=== PATIENT | male | born 1935 | race Caucasian/White ===

== ENCOUNTER 2020-01-03 12:52 | Outpatient (CLI) | payer MEDICARE, SELFPAY ==
--- NOTE | ~2020-01-03 | US_ITS ---
US renal BI 01/03/2020 13:40 Procedure: Realtime transabdominal ultrasound of the kidneys and bladder. Indication: Abnormal renal function Comparison: Ultrasound dated 10/31/2018 Findings: Renal echotexture is normal bilaterally without hydronephrosis, contour deforming mass or r enal calculus. The right kidney measures 11.5 cm and left kidney measures 11.5 cm. Bladder within no rmal limits. Prostate gland is enlarged. Impression: 1: Unremarkable renal ultrasound. No stones, masses or hydronephrosis. Reviewed, dictated and finalized at location A. Impression: 1: Unremarkable renal ultrasound. No stones, masses or hydronephrosis.
--- NOTE | ~2020-01-03 | XR_ITS ---
EXAMINATION: XR foot RT standing 2V EXAM DATE: 01/03/2020 13:45 INDICATION: Osteoarthritis. TECHNIQUE: Right foot 2 view standing frontal and lateral projections. There is no prior study for comparison. Correlation was made with contralateral foot same date. FINDINGS: Arterial sclerotic disease. No periosteal reaction or band of sclerosis to suggest subacut e stress fracture. There are no acute fractures identified. Mild to moderate right 1st MTP osteoarth ritis. Otherwise mild polyarticular osteoarthritis. There is pes planus. There are no bony erosions i dentified. IMPRESSION: 1. 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 2. Pes planus. Reviewed, dictated and finalized at location A.
--- NOTE | ~2020-01-03 | XR_ITS ---
EXAMINATION: XR foot LT standing 2V EXAM DATE: 01/03/2020 13:45 INDICATION: No known recent injury provided at this time. Pain of the feet. Osteoarthritis. TECHNIQUE: Left foot standing frontal and lateral projections. There is no prior study for comparis on. FINDINGS: There is left pes planus. There are no bony erosions identified. There is mild to moderate polyarticular midfoot and 1st metatarsophalangeal joint primary osteoarthritis. Scattered arterial s clerosis. No periosteal reaction or band of sclerosis to suggest subacute stress fracture. There are no bony erosions identified. IMPRESSION: 1. Mild to moderate polyarticular left wrist osteoarthritis. 2. Pes planus. Reviewed, dictated and finalized at location A.
--- NOTE | ~2020-01-03 | XR_ITS ---
EXAMINATION: XR hand BI arthritis min 3V EXAM DATE: 01/03/2020 13:45 INDICATION: Osteoarthritis. TECHNIQUE: Right hand frontal, lateral and oblique projections obtained and reviewed. Left hand fron sheela, lateral and oblique projections obtained and reviewed. Catchers projection of both hands. There is no prior study for comparison. FINDINGS: Right hand: There is polyarticular primary osteoarthritis as follows: Moderate 2nd and 3rd MCP joint and 5th distal interphalangeal joint, otherwise mild polyarticular involvement. There are no acute fr actures identified. There are no bony erosions identified. No radiopaque foreign bodies identified. Left hand: There is polyarticular primary osteoarthritis as follows: Moderate 1st MCP, otherwise mild polyarticular involvement. There are arterial calcifications, arteriosclerosis. There are no bony er osions identified. No radiopaque foreign bodies identified. IMPRESSION: Polyarticular osteoarthritis, moderate at the 2nd MCP joints bilaterally and right 3rd MC P joint. Reviewed, dictated and finalized at location A. IMPRESSION: Polyarticular osteoarthritis, moderate at the 2nd MCP joints bilate rally and right 3rd MCP joint.
== END 2020-01-03 12:53 | disposition home or self-care (01) ==
PROVIDERS: PCP Internal Medicine; Referring Provider Internal Medicine; Visit Provider Internal Medicine Nephrology
DX: M19.90 Unspecified osteoarthritis, unspecified site (principal); R94.4 Abnormal results of kidney function studies; M19.072 Primary osteoarthritis, left ankle and foot; M19.071 Primary osteoarthritis, right ankle and foot
CPT/HCPCS: 73130; 73620; 76775

== ENCOUNTER 2020-05-16 14:20 | Observation (INO) | payer MEDICARE, SELFPAY ==
[2020-05-16] VITALS (22 sets, daily range): BP systolic 131–176; BP diastolic 54–76; PULSE 92–168; RESP 15–23; TEMP 36.8–36.9; O2SAT 90–100; BMI 30.7
--- NOTE | ~2020-05-16 | XR_ITS ---
EXAMINATION: XR chest 2V DATE: 05/16/2020 17:05 INDICATION: Chest pain TECHNIQUE: AP and lateral views of the chest are obtained. COMPARISON: 11/05/2018 FINDINGS: Cardiomegaly is noted. There is a mild diffuse interstitial pattern. More focal airspace op acities are present in the mid and lower lung zones. There are trace pleural effusions. No pneumothor ax is identified. There is moderate thoracic spondylosis. IMPRESSION: 1. Cardiomegaly with mild pulmonary edema. 2. Small pleural effusions. Reviewed, dictated and finalized at location A.
--- NOTE | 2020-05-16 14:21 | ECG_ITS ---
Measurements Intervals [place] Rate: 98 P: 82 MN: 232 QRS: -48 QRSD: 100 T: 56 QT: 350 QTc: 447 Interpretive Statements SINUS RHYTHM WITH FIRST DEGREE AV BLOCK LEFT ANTERIOR FASCICULAR BLOCK BASELINE WANDER- V5 ABNORMAL ECG Electronically Signed On 05-16-2020 14:51:47 CDT by Rich Contreras D.O.
[2020-05-16 14:58] LABS: Basophils Absolute Auto 0.1 K/mm3 (0.0-0.1); Basophils Percent Auto 0.4 % (0.2-1.2); Hematocrit 37.9 % (42.0-52.0); Hemoglobin 12.4 g/dL (14.0-18.0); Immature Granulocyte Absolute 0.05 K/mm3 (0.00-0.031); Immature Granulocyte Percent A 0.4 % (0-0.5); Lymphocytes Absolute Auto 0.82 K/mm3 (0.9-3.2); Lymphocytes Percent Auto 6.1 % (18.3-44.2); Mean Corpuscular HGB Conc 32.7 g/dl (32-36); Mean Corpuscular Hemoglobin 33.1 pg (26-34); Mean Corpuscular Volume 101.1 fl (80-100); Mean Platelet Volume 10.2 fl (7.4-10.4); Monocytes Percent Auto 7.2 % (2.6-8.5); Neutrophils Absolute Auto 11.5 K/mm3 (1.3-6.7); Neutrophils Percent Auto 85.9 % (45.5-73.1); Platelet Count Result 243 k/mm3 (150-375); Red Blood Count 3.75 M/mm3 (4.6-6.20); Red Cell Distribution Width 12.1 % (11.5-14.5); White Blood Count 13.4 K/mm3 (4.5-10.0)
[2020-05-16 15:04] LABS: Prothrombin Time 13.2 Seconds (11.1-14.7)
[2020-05-16 15:05] LABS: Partial Thromboplastin Time 24.8 SECONDS (22.3-36.8)
[2020-05-16 15:09] LABS: Anion Gap 14 mmol/L (8-16); Blood Urea Nitrogen 44 mg/dL (9-20); Calcium 9.2 mg/dL (8.4-10.2); Carbon Dioxide 23 mmol/L (22-30); Chloride 95 mmol/L (98-107); Estimated CRCL calculation 40 ml/min; Estimated Glomerular Filt Rate 41; Glucose 585 mg/dL (75-110); Potassium 5.4 mmol/L (3.4-5.0); Sodium 132 mmol/L (137-145)
--- NOTE | 2020-05-16 15:29 | ED.CHESTPAIN ---
HPI - Chest Pain General Chief Complaint: Chest Pain Stated Complaint: CP Time Seen by Provider: 05/16/20 15:29 Source: patient Mode of arrival: wheelchair Limitations: no limitations History of Present Illness HPI narrative: Patient is an 84-year-old male with a history of hypertension, hyperlipidemia, type 2 diabetes who presents for evaluation of chest pain, nausea and vomiting as well as elevated glucose levels. Patient states he noticed chest pain this morning prior to doing water aerobics at his gym. States that the pain was dull, aching in nature over the left upper chest, no radiation to the jaw, back or shoulder. Patient has had associated nausea and vomiting today. He denies any abdominal pain. Pain currently is very mild to minimal in nature. No associated diaphoresis or shortness of breath. No ripping or tearing sensation to the flank. Patient states glucose readings have been in the 500s despite his insulin pump being attached. He reports polyuria without dysuria. He denies fever, chills, cough. Related Data Home Medications Medication Instructions Recorded Confirmed aspirin 81 mg tablet,delayed 81 mg PO DAILY 06/20/19 05/10/20 release atorvastatin 20 mg tablet 40 mg PO DAILY tablet 10/04/19 05/10/20 metoprolol tartrate 25 mg tablet 25 mg PO DAILY tablet 12/29/19 05/10/20 citalopram 20 mg tablet 40 mg PO DAILY tablet 04/29/20 05/10/20 furosemide 40 mg tablet 40 mg PO WEEKLY tablet 04/29/20 05/10/20 losartan 25 mg tablet 25 mg PO DAILY 04/29/20 05/10/20 Allergies Allergy/AdvReac Type Severity Reaction Status Date / Time hydrocodone Allergy Unknown Unknown Verified 05/16/20 14:26 morphine Allergy Unknown Unknown Verified 05/16/20 14:26 Review of Systems Review of Systems: Narrative: CONSTITUTIONAL: Denies fever, chills, or sweats. EYES: Denies visual changes ENT: Denies rhinorrhea, congestion, sore throat, or otalgia. CARDIOVASCULAR: Reports chest pain without palpitations or edema RESPIRATORY: Denies cough or dyspnea. GASTROINTESTINAL: Denies abdominal pain, reports nausea and vomiting, denies diarrhea GENITOURINARY: Denies dysuria or hematuria. SKIN: Denies rash or itching. MUSCULOSKELETAL: Denies back pain, joint pain, or myalgia. NEUROLOGIC: Denies headache, numbness, or weakness. [facility] Past Medical History Medical History Albuminuria Arthritis, lumbar spine ASHD (arteriosclerotic heart disease) Bilateral hand pain BMI 34.0-34.9,adult Chronic obstructive pulmonary disease CKD stage 3 due to type 2 diabetes mellitus Counseling on health promotion and disease prevention Depression Diabetes mellitus Diastolic heart failure, NYHA class 1 Encounter for medication management Encounter for screening for other viral diseases Essential (primary) hypertension Health education History of CVA (cerebrovascular accident) Hypothyroidism Hypothyroidism (acquired) Inflammatory arthritis (~08/2018) Insulin dependent diabetes mellitus Insulin pump titration Kyphosis Mixed hyperlipidemia Osteoarthritis of right hip Other specified counseling Primary osteoarthritis of both hands Primary osteoarthritis of both knees Surgical History Surgical History History of total knee arthroplasty 2017 right Family History Family History Mother Family history of diabetes mellitus in first degree relative Family history of lung disease Family history of heart disease in male family member before age 55 Family history of lung cancer, Onset Age: 80 Patient's mother is Social History Social History Smoking status: Never smoker Second hand tobacco smoke exposure: No Alcohol intake: never Exam Narrative: Exam Narrative: GENERAL: Awake, alert, conversant HEAD: Normocep
[2020-05-16 15:32] LABS: Troponin I 0.049 ng/mL (0.000-0.034)
[2020-05-16 15:54] LABS: Base Excess ABG -3.6 mEq/l (+/-2.0); Carboxyhemoglobin 1.2 % THb (0-2.0); Device ROOM AIR; Fractional Inspired Oxygen 21 %; HCO3 ABG 22.4 mEq/l (22.0-26.0); Methemoglobin ABG 0.3 %THb (0-1.5); Oxygen Content ABG 15.7 %vol (16.0-22.0); Oxygen Saturation ABG 90.7 % (95.0-100.0); Oxyhemoglobin 87.9 % THb (90.0-100.0); PCO2 ABG 44.2 mmHg (35.0-45.0); PO2 ABG 63.8 mmHg (80.0-100.0); PO2 FiO2 Ratio Arterial Blood 3.04 %; Reduced Hemoglobin 10.6 %THb (0-5.0); Site Drawn LEFT BRACHIAL; Total Hemoglobin 12.7 g/dL (12.0-18.0); pH ABG 7.323 (7.350-7.450)
[2020-05-16 15:59] LABS: Add Urine Microscopic? YES; Appearance Urine Clear (Clear); Bilirubin Urine Negative (Negative); Blood Urine Negative (Negative); Color Urine Straw (Yellow); Glucose Urine UA 3+ mg/dL (Negative); Ketones Urine 1+ mg/dL (Negative); Leukocyte Esterase Ur Negative LEU/UL (Negative); Nitrate Urine Negative (Negative); Protein Urine 2+ mg/dL (Negative); RBC Urine 0-2 /hpf (0-2); Urobilinogen Urine Negative mg/dL (<2.0); WBC Urine 0-3 /hpf
[2020-05-16] MEDS: ONDANSETRON INJ 4 MG/2 ML VIAL IV PUSH (15:59)
[2020-05-16 16:00] LABS: Glucose Point of Care > 500 (65-105)
[2020-05-16] MEDS: SODIUM BICARBONATE 8.4% 50 MEQ/50 ML VIAL IV PUSH (16:00)
[2020-05-16] MEDS: CALCIUM GLUCONATE 1,000 MG/10 ML VIAL 1000 MG IV PUSH (16:00)
[2020-05-16] MEDS: INSULIN HUMAN REGULAR (*BKC) 100 UNITS/ML 10 UNITS IV PUSH (16:00)
[2020-05-16] MEDS: ASPIRIN 81 MG CHEWABLE TABLET 324 MG PO (16:00)
[2020-05-16] MEDS: METOCLOPRAMIDE HCL INJ 10 MG/2 ML VIAL IV PUSH (16:38)
[2020-05-16 16:53] LABS: Beta-Hydroxybutyrate/Acetoacetate 3.25 mmol/L (0.02-0.27)
--- NOTE | 2020-05-16 17:01 | ECG_ITS ---
Measurements Intervals [place] Rate: 97 P: 92 TX: 237 QRS: -42 QRSD: 102 T: 54 QT: 352 QTc: 448 Interpretive Statements SINUS RHYTHM WITH FIRST DEGREE AV BLOCK VENTRICULAR PREMATURE COMPLEX LEFT AXIS DEVIATION BORDERLINE ST ABNORMALITY- ANTEROLATERAL LEADS ABNORMAL ECG Electronically Signed On 05-17-2020 10:35:53 CDT by Rich Contreras D.O.
[2020-05-16 17:14] LABS: Glucose Point of Care 447 (65-105)
[2020-05-16 18:04] LABS: NT Pro B Type Natriuretic Pept 908 PG/ML (5-100)
[2020-05-16] MEDS: SODIUM CHLORIDE 0.9% IV 1,000 ML 999 ML IV CONT (18:11)
--- NOTE | 2020-05-16 18:15 | WPDCN ---
Assessment and Plan Assessment and plan (1) Atypical chest pain: Code(s): R07.89 - Other chest pain Status: Acute Assessment and Plan: Pt has had persistent CP since yesterday but no acute ischemic EKG changes and troponins are minimally high; this appears to be noncardiac CP. Esophageal vs nonspecific. HR is a little fast, 100 BPM, will follow. (2) Elevated troponin: Code(s): R77.8 - Other specified abnormalities of plasma proteins Status: Acute Assessment and Plan: MIld troponin elevation, flat. (3) Acute on chronic diastolic CHF (congestive heart failure): Code(s): I50.33 - Acute on chronic diastolic (congestive) heart failure Status: Acute Assessment and Plan: Pt appears to have some CHF by CXR and he has a very modest elevation of ProBNP. However he does not really look volume overloaded; more dry than wet. He may have some CHF based on metabolic derangements and elevated HR. This should improve as everything else improves. (4) ASHD (arteriosclerotic heart disease): Code(s): I25.10 - Atherosclerotic heart disease of [place] coronary artery without angina pectoris Status: Acute Assessment and Plan: H/O old [place] (5) Uncontrolled diabetes mellitus: Code(s): E11.65 - Type 2 diabetes mellitus with hyperglycemia Status: Acute Assessment and Plan: BS > 500. It appears his iinsulin pump was not functioning appropriately. A lot of metabolic derangements, but I think this will improve once his BS and borderline-DKA improve. (6) FERMIN (acute kidney injury): Code(s): N17.9 - Acute kidney failure, unspecified Status: Acute Assessment and Plan: Noted, given IV fluids. BMP in a.m. (7) Acute hyperkalemia: Code(s): E87.5 - Hyperkalemia Status: Acute Assessment and Plan: Has had some mild hyperkalemia as an OPT, now worse. Treated. FU K+ HPI Data of Consult Date/Time: 05/16/20 18:15 Requesting Physician: April Sarkar MD Primary Care Provider: Sreekanth Jackson MD Consult Narrative Narrative: Date of service: 03/18/2020 Kurtis Allred is a 84 year old male, whom I follow for CAD, was admitted through the emergency room. I was asked to see him at the request the hospitalist for my advice and opinion regarding his chest pain, nausea and vomiting, in consultation. He also has a history of hypertension, diabetes and hyperlipidemia. The patient uses an insulin pump called [employer]. He noted high BS for `1.5 days, up in the 400-500's. He wasn't feeling well. HE started having some SSCP/pressure yesterday, a dull, aching discomfort w/o radiation, which persisted through today. He did water aerobics this morning and started feeling worse w/ N&V. The SSCP continued and he came to the ER. HIs EKG showed no acute changes. His blood gas showed a pH is 7.32, pCO2 44 and PO2 of 64. He was found to have a BUN of 44, creatinine 1.6, glucose of 585, potassium 5.4, proBNP of non 108, and a troponin of 0.06. Beta-hydroxybutyrate was elevated at 3.3. He has been given 2 liters? of IVF, sodium bicarb, IV insulin. He was admitted to the ICU. He still has some SSCP. Mr. Busby had a NSTEMI in 1998 treated medically and started w/ CHF in 2019. He has had some atypical CP in the past. A Daysi in 2016 shoed no ischemia. Echo in 11/2018 showed EF 60%, mod LVH, diast dysfxn, no valve problems. When I last saw the pt in February 2020 he was having no angina. Has chronic ARANDA walking to the mailbox. He wasn't taking his furosemide regularly but I rec he take it once weekly. HIs K+ was elevated so I changed his lisinopril to losartan and instructed him on
--- NOTE | 2020-05-16 18:47 | ADMGEN ---
This patient, Kurtis Allred, was admitted to Intensive Care Unit-8 at 1825. Patient/family oriented to hospital policies and general routines including ID bracelet, bed and alarms, visiting hours, pain management, procedures, bathroom and other care routines, personal items, smoking policy, room service/diet, and visiting hours. Valuables list has been completed. Information on how to activate the Rapid Response Team has been discussed. Patient/Family are encouraged to report perceived risks to care and to ask questions if they do not understand what they are told or what they should do.
--- NOTE | 2020-05-16 19:28 | PM.IMHP ---
H&P: HPI History of Present Illness Date/Time: 05/16/20 19:28 Chief complaint: HYPERGLYCEMIA,CHEST PAIN,HYPERKALEMIA Narrative: Kurtis Allred is a 84 year old male Who came to the emergency room [facility] for complaints of chest pain. The patient stated he felt fine when he went to do his water aerobics this morning. He stated that he has a insulin pump and gives him a continue with insulin dosage. And then he can bolus himself as well. The patient disconnected his pump while hewas in the water but then reconnected soon after. the patient stated that he had to stop his aerobics because he got sick to stomach and vomited 3 times. Patient stated that his blood sugars are typically under control. He does have diabetes type 2 and he went to change his insulin pump again and it was bent 2 times and figure that he was not getting his insulin that he should. He had the nausea and vomiting and chest pain. Patient gave himself a shot of insulin at home with his blood sugars were in the 500s. the patient stated that it is mid sternal and is not reproducible. Patient stated he is not short of breath but his pulse ox was dropping down to 83%. Oxygen was placed at 2 L per nasal cannula. Patient's sodium was found to be 132 potassium 5.4. Creatinine 1.6. His last known creatinine was 1.3 but earlier this year did get up to 1.7. Patient has chronic renal failure stage 3. Patient's blood glucose was 585 when he came to the emergency room. His troponin 0.049 and 0.060. Anion gap was reported as 14 but was reported as normal. The pharmacy clinical specialist was notified and agreed to be a consult for the patient in ICU. Patient's troponinare typically mildly elevated and is at his baseline. He has not had any fever chills. Chest x-ray was read as cardiomegaly with pulmonary edema. Small effusions. Cardiology has been consulted and has already seen the patient. Patient was given an aspirin in the emergency room Zofran IV fluids calcium gluconate sodium bicarb and insulin for an elevated potassium. He is also given Reglan. Regardless of the 3 L of normal saline that the patient received his blood sugars do not come down much. Patient is admitted to the intensive care unit for elevated blood sugars and chest pain with elevated troponins. the patient stated that he tried anti nausea medicine and Tums at home without any relief. Date of service is 05/16/2020 Review of Systems Review of Systems: All systems reviewed & are unremarkable except as noted in HPI and below Constitutional: Constitutional: Reports as per HPI and Reports no additional constitutional complaints Eyes: Eyes: Reports as per HPI and Reports no additional eye complaints ENT: Reports system reviewed and no additional complaints, except as documented and Reports Normal hearing present Cardiovascular: Cardiovascular: Reports no additional cardiovascular complaints Respiratory: Respiratory: Reports no additional respiratory complaints and Reports no additional respiratory complaints Gastrointestinal: Gastrointestinal: Reports as per HPI and Reports no additional gastrointestinal complaints Musculoskeletal: Musculoskeletal: Reports no additional musculoskeletal complaints Integumentary/Breasts: Skin/Breast: Reports system reviewed and no additional complaints, except as docu and Reports as per HPI Neurologic: Reports system reviewed and no additional complaints, except as documented, Reports as per HPI and Reports Normal hearing present Psychiatric: Psychiatric: Reports no additional psychiatric complaints and Reports as per HPI Endocrine: Endocrine: Reports no additional endocrine complaints Hematologic/Lymphatic: Hematologic/Lymphatic: Reports no additional hematologic/lymphatic complaints Allergic/Immunologic: Allergic/Immunologic: Reports no additional allergic/immunologic complaints [facility] Past Medical History Medical History Acute on
[2020-05-16 20:02] LABS: Anion Gap 16 mmol/L (8-16); Blood Urea Nitrogen 43 mg/dL (9-20); Calcium 9.3 mg/dL (8.4-10.2); Carbon Dioxide 23 mmol/L (22-30); Chloride 96 mmol/L (98-107); Estimated CRCL calculation 40 ml/min; Estimated Glomerular Filt Rate 45; Glucose 473 mg/dL (75-110); Magnesium 2.1 mg/dL (1.6-2.3); Potassium 5.1 mmol/L (3.4-5.0); Sodium 135 mmol/L (137-145)
[2020-05-16] MEDS: INSULIN HUMAN REGULAR (*BKC) 100 UNITS in SODIUM CHLORIDE 0.9% IV 99 ML 7.7 UNITS IV CONT (20:36)
[2020-05-16] MEDS: SODIUM CHLORIDE 0.9% IV 1,000 ML 150 ML IV CONT (20:37)
[2020-05-16] MEDS: HEPARIN SODIUM 5,000 UNITS/ML VIAL 5000 UNITS SUB-Q (20:44)
[2020-05-16 20:52] LABS: Glucose Point of Care 462 (65-105)
[2020-05-16 21:39] LABS: Glucose Point of Care 452 (65-105)
[2020-05-16 23:00] LABS: Anion Gap 15 mmol/L (8-16); Blood Urea Nitrogen 44 mg/dL (9-20); Calcium 8.8 mg/dL (8.4-10.2); Carbon Dioxide 21 mmol/L (22-30); Chloride 100 mmol/L (98-107); Estimated CRCL calculation 36 ml/min; Estimated Glomerular Filt Rate 39; Glucose 458 mg/dL (75-110); Potassium 4.9 mmol/L (3.4-5.0); Sodium 136 mmol/L (137-145)
[2020-05-16 23:19] LABS: Troponin I 0.275 ng/mL (0.000-0.034)
[2020-05-16 23:33] LABS: Glucose Point of Care 389 (65-105)
[2020-05-17] VITALS (15 sets, daily range): BP systolic 124–150; BP diastolic 55–64; PULSE 58–93; RESP 15–24; TEMP 36.4–36.9; O2SAT 92–99; BMI 30.4
--- NOTE | 2020-05-17 | ECHO_ITS ---
Patient Info Name: Kurtis Allred Age: 84 years : 1935 Gender: Male Ht: 71 in Wt: 219 lbs BSA: 2.26 m2 HR: 87 bpm BP: 133 / 64 mmHg Heart Rhythm: Sinus Rhythm Technical Quality: Good Exam Date: 05/17/2020 8:17 AM Exam Location: [facility] Patient Status: Inpatient Admit Date: 05/16/2020 Staff Ordering Physician: Maddie Stoddard NP Laboratory Technical Specialist: Oj Matthew, RHONDA, RT Attending Provider: April Sarkar MD Referring Physician: Arlyn THAO; Exam Type: CA echo doppler color flow Study Info Indications I50.9 - Heart failure, unspecified Complete two-dimensional, color flow and Doppler transthoracic echocardiogram is performed. Summary 1. Complete two-dimensional, color flow and Doppler transthoracic echocardiogram is performed. 2. Normal LV size, mild LVH, normal LV systolic function, EF 65-70%; normal diastolic function. LV global launch normal strain-17%. Mild left atrial enlargement. Mild mitral annular calcification, mild MR. Mildly sclerotic aortic valve, no stenosis; trivial aortic regurgitation. [id number] tricuspid regurgitation, moderate pulmonary hypertension, estimated RVSP 57 mmHg. Left Ventricle Left ventricular chamber dimension is normal. Left ventricular systolic function is normal, estimated at 60-65%. There is mildly increased left ventricular wall thickness. The left ventricular diastolic function is normal. Right Ventricle Right ventricular chamber dimension is normal. Right ventricular systolic function is normal. Left Atria Left atrial chamber dimension is mildly enlarged. Right Atria Right atrial chamber dimension is normal. Aortic Valve There is mild aortic valve sclerosis. There is no aortic valve stenosis. There is trace aortic valve regurgitation. Pulmonic Valve The pulmonic valve is normal. There is trace pulmonic regurgitation. Mitral Valve The mitral valve has normal leaflets. There is mild mitral valve regurgitation. There is mild mitral valve calcification. Tricuspid Valve The tricuspid valve leaflets are normal. There is mild to moderate tricuspid valve regurgitation. Moderate pulmonary hypertension, estimated pulmonary arterial systolic pressure is 57 mmHg. Pericardium/Pleural The pericardium appears epicardial fat pad. Inferior Vena Cava Dilated inferior vena cava with >50% collapse upon inspiration consistent with elevated right atrial pressure, 10 mmHg. Aorta The aortic root size at the sinus of Valsalva is not well visualized. Left Ventricular Outflow Tract Name Value Normal LVOT 2D LVOT Diameter 2.1 cm LVOT Doppler LVOT Peak Gradient 5 mmHg LVOT Mean Gradient 3 mmHg LVOT VTI 24 cm LVOT VTI/AV VTI Ratio 0.8 LVOT Stroke Volume 85 ml LVOT CO 7.0 l/min LVOT CI 3.1 l/min/m2 Mitral Valve Name
[2020-05-17 01:07] LABS: Glucose Point of Care 344 (65-105)
[2020-05-17 02:23] LABS: Glucose Point of Care 287 (65-105)
[2020-05-17] MEDS: INSULIN HUMAN REGULAR (*BKC) 100 UNITS in SODIUM CHLORIDE 0.9% IV 99 ML 15.9 UNITS IV CONT (03:26)
[2020-05-17] MEDS: KCL 20 MEQ/D5/0.45% SOD CHL 1,000 ML 150 ML IV CONT (03:27)
[2020-05-17 03:37] LABS: Glucose Point of Care 220 (65-105)
[2020-05-17 05:00] LABS: Basophils Percent Auto 0.2 % (0.2-1.2); Hematocrit 32.9 % (42.0-52.0); Immature Granulocyte Absolute 0.03 K/mm3 (0.00-0.031); Immature Granulocyte Percent A 0.3 % (0-0.5); Lymphocytes Absolute Auto 0.96 K/mm3 (0.9-3.2); Lymphocytes Percent Auto 9.7 % (18.3-44.2); Mean Corpuscular HGB Conc 33.4 g/dl (32-36); Mean Corpuscular Hemoglobin 32.9 pg (26-34); Mean Corpuscular Volume 98.5 fl (80-100); Mean Platelet Volume 9.8 fl (7.4-10.4); Monocytes Absolute Auto 1.3 K/mm3 (0.1-0.6); Monocytes Percent Auto 13.1 % (2.6-8.5); Neutrophils Absolute Auto 7.6 K/mm3 (1.3-6.7); Neutrophils Percent Auto 76.7 % (45.5-73.1); Platelet Count Result 228 k/mm3 (150-375); Red Blood Count 3.34 M/mm3 (4.6-6.20); Red Cell Distribution Width 12.2 % (11.5-14.5); White Blood Count 9.9 K/mm3 (4.5-10.0)
[2020-05-17 05:14] LABS: Anion Gap 4 mmol/L (8-16); Blood Urea Nitrogen 44 mg/dL (9-20); Calcium 8.8 mg/dL (8.4-10.2); Carbon Dioxide 32 mmol/L (22-30); Chloride 102 mmol/L (98-107); Estimated CRCL calculation 38 ml/min; Estimated Glomerular Filt Rate 41; Glucose 184 mg/dL (75-110); Lipase 27 U/L (23-300); Potassium 4.1 mmol/L (3.4-5.0); Sodium 138 mmol/L (137-145)
[2020-05-17 05:45] LABS: Glucose Point of Care 160 (65-105)
[2020-05-17 06:46] LABS: Glucose Point of Care 103 (65-105)
[2020-05-17 07:36] LABS: Glucose Point of Care 98 (65-105)
[2020-05-17 07:57] LABS: Anion Gap 3 mmol/L (8-16); Blood Urea Nitrogen 42 mg/dL (9-20); Calcium 8.9 mg/dL (8.4-10.2); Carbon Dioxide 33 mmol/L (22-30); Chloride 103 mmol/L (98-107); Estimated CRCL calculation 38 ml/min; Estimated Glomerular Filt Rate 41; Glucose 94 mg/dL (75-110); Potassium 4.1 mmol/L (3.4-5.0); Sodium 139 mmol/L (137-145)
[2020-05-17 08:33] LABS: Glucose Point of Care 79 (65-105)
[2020-05-17 08:56] LABS: Free T4 Free Thyroxine Reflex 0.72 ng/dL (0.78-2.19)
[2020-05-17] MEDS: amLODIPine BESYLATE 5 MG TABLET BY MOUTH (09:11)
[2020-05-17] MEDS: ASPIRIN 81 MG ENTERIC TABLET PO (09:11)
[2020-05-17] MEDS: INSULIN GLARGINE (*BKC) 100 UNITS/ML 15 UNITS SUB-Q (09:13)
[2020-05-17] MEDS: HEPARIN SODIUM 5,000 UNITS/ML VIAL 5000 UNITS SUB-Q ×2 (09:13→22:40)
[2020-05-17] MEDS: LOSARTAN POTASSIUM 25 MG TABLET PO (09:13)
[2020-05-17] MEDS: METOPROLOL TARTRATE 25 MG TABLET PO (09:13)
[2020-05-17] MEDS: CITALOPRAM HYDROBROMIDE 20 MG TABLET 40 MG PO (09:13)
[2020-05-17] MEDS: ATORVASTATIN 40 MG TABLET PO (09:13)
--- NOTE | 2020-05-17 10:39 | WPDCNINT ---
Assessment and Plan Assessment and plan (1) Uncontrolled diabetes mellitus: Code(s): E11.65 - Type 2 diabetes mellitus with hyperglycemia Status: Acute Assessment and Plan: Patient's blood sugars were over 500. His last A1c was noted to be 7.1 last month but is now 8.0 today. patient was started on insulin infusion on admission. Blood glucoses improved and I will transition patient to Lantus, sliding scale, and scheduled with meal insulin will discontinue dextrose IV fluids 1 hour after Lantus (2) Chest pain: Code(s): R07.9 - Chest pain, unspecified Status: Acute Assessment and Plan: patient has slightly elevated troponin which appear to be chronically elevated. Patient does have risk factors for coronary disease patient seen by cardiology in the ER on aspirin statin, ARB and beta-dana not on systemic anticoagulation echo done this morning and result pending further management per Cardiology (3) FERMIN (acute kidney injury): Code(s): N17.9 - Acute kidney failure, unspecified Status: Acute Assessment and Plan: FERMIN on CKD creatinine slightly elevated over baseline continue IV fluids check CK he had renal ultrasound done earlier this year and was negative (4) Acute hyperkalemia: Code(s): E87.5 - Hyperkalemia Status: Acute Assessment and Plan: resolved with treatment in ER monitor (5) Hypothyroidism: Qualifiers: Hypothyroidism type: acquired Qualified Code(s): E03.9 - Hypothyroidism, unspecified Code(s): E03.9 - Hypothyroidism, unspecified Status: Acute Assessment and Plan: TSH elevated and T4 low start levothyroxine (6) Mixed hyperlipidemia: Code(s): E78.2 - Mixed hyperlipidemia Status: Acute Assessment and Plan: Continue with atorvastatin. (7) Essential (primary) hypertension: Code(s): I10 - Essential (primary) hypertension Status: Acute Assessment and Plan: Continue losartan and metoprolol. Continue with amlodipine. (8) Chronic obstructive pulmonary disease: Code(s): J44.9 - Chronic obstructive pulmonary disease, unspecified Status: Acute Assessment and Plan: p.r.n. bronchodilators Additional Plan DVT prophylaxis - heparin subcu Nutrition - diabetic diet Code Status - Full Code Atmospheric Physicist Consult Note Consult date: 05/17/20 Time Seen: 08:00 HPI: Kurtis Allred is a 84 year old male who came to the emergency room with complaints of chest pain. patient started having pain in his chest while doing water aerobics yesterday. pain was 6/10 severe, pressure in quality, no radiation, pain was as stated with nausea and he vomited when he got home. No shortness of breath or palpitations. Pain resolved while in the hospital last night and patient currently is pain free. Patient on insulin pump at home and states that insulin pump gives approximately 1 unit per our and he takes close to 9 units on average with meals. In ER, patient was found to be hyperglycemic, elevated creatinine, elevated troponin Chest x-ray was read as cardiomegaly with pulmonary edema. Small effusions. Cardiology was consulted in the ED and recommended conservative management. Patient was given IV fluids, and started on insulin infusion and admitted to ICU for further management . Patient denies any other complaint at this time and feels back to baseline . Patient denies fever, chest pain, shortness of breath, cough, nausea vomiting, abdominal pain, diarrhea, headache or constipation. No sick contact or travel recently. Patient states that he was tested for COVID antibody and was positive in the past. He denies any change in sensation of taste or smell Review of Systems Review of Systems: All systems reviewed & are unremarkable except as noted in HPI and below ( HPI) PMFSH Past Medical History Medical Hi
[2020-05-17 12:10] LABS: Glucose Point of Care 293 (65-105)
[2020-05-17] MEDS: INSULIN ASPART (*BKC) 100 UNITS/ML SUB-Q ×4 (12:17→17:26)
--- NOTE | 2020-05-17 14:27 | PM.PNCARD ---
Progress Note: A&P Assessment and Plan (1) Atypical chest pain: Code(s): R07.89 - Other chest pain Status: Acute Assessment and Plan: Persistent chest discomfort with no acute ischemic EKG changes. Troponin 0.049, 0.060, 0.110, 0.275. Creatinine also elevated 1.6-1.7. Mild elevation and flat. Not acute coronary syndrome. Chest discomfort has completely resolved his blood sugars have come down. (2) Elevated troponin: Code(s): R77.8 - Other specified abnormalities of plasma proteins Status: Acute Assessment and Plan: Mild troponin elevation, flat. (3) Acute on chronic diastolic CHF (congestive heart failure): Code(s): I50.33 - Acute on chronic diastolic (congestive) heart failure Status: Acute Assessment and Plan: Some CHF by CXR and he has a very modest elevation of ProBNP. He does not look volume overloaded; more dry than wet. He may have some CHF based on metabolic derangements and elevated HR. This should improve as everything else improves. (4) ASHD (arteriosclerotic heart disease): Code(s): I25.10 - Atherosclerotic heart disease of [place] coronary artery without angina pectoris Status: Acute Assessment and Plan: H/O old OK (5) Uncontrolled diabetes mellitus: Code(s): E11.65 - Type 2 diabetes mellitus with hyperglycemia Status: Acute Assessment and Plan: BS > 500. It appears his insulin pump was not functioning appropriately. A lot of metabolic derangements, but this will improve once his BS and borderline-DKA improve. (6) FERMIN (acute kidney injury): Code(s): N17.9 - Acute kidney failure, unspecified Status: Acute Assessment and Plan: Noted, given IV fluids. BMP in a.m. (7) Acute hyperkalemia: Code(s): E87.5 - Hyperkalemia Status: Acute Assessment and Plan: Has had some mild hyperkalemia as an OPT, now worse. Treated. potassium 4.1 05/17/2020. Continue to follow Additional Plan Will follow-up p.r.n. this weekend. Please do not hesitate to call if we can be of assistance. Plan discussed with 1420 05/17/2020 Subjective Date/time seen: 05/17/20 14:27 Interval history: Follow-up for: Chest pain, elevated troponin, acute on chronic HFpEF, arterial sclerotic heart disease, uncontrolled diabetes, acute kidney injury, hyperkalemia. Date of service: 05/17/2020 Subjective: Feeling much better today. Chest discomfort has completely resolved. No further nausea or vomiting. Denied shortness of breath at rest or lightheadedness. Wondering if he has desaturations at home as have been demonstrated here in the hospital. On room air during the time of our interview. Review of Systems Constitutional: Constitutional: Denies body ache(s) and Denies chills Eyes: Eyes: Denies blind spots and Denies blurry vision ENT: Denies dizziness Cardiovascular: Cardiovascular: Reports chest pain ( Resolved), Denies diaphoresis, Denies rapid heart rate, Denies edema, Denies lightheadedness, Denies palpitations and Reports dyspnea on exertion Respiratory: Respiratory: Reports dyspnea on exertion Gastrointestinal: Gastrointestinal: Denies abdominal pain, Denies hematochezia, Denies diarrhea, Denies nausea and Denies vomiting Genitourinary: Genitourinary: Denies hematuria Musculoskeletal: Musculoskeletal: Denies back pain and Denies myalgias Integumentary/Breasts: Skin/Breast: Denies rash Neurologic: Denies behavioral changes and Denies dizziness Psychiatric: Psychiatric: Denies behavioral changes Endocrine: Endocrine: Reports polydipsia, Reports polyuria and Denies palpitations Hematologic/Lymphatic: Hematologic/Lymphatic: Denie
[2020-05-17] MEDS: LEVOTHYROXINE SODIUM 125 MCG TABLET PO (16:14)
--- NOTE | 2020-05-17 16:16 | PM.IMPN ---
Progress Note: A&P Assessment and Plan (1) Uncontrolled diabetes mellitus: Code(s): E11.65 - Type 2 diabetes mellitus with hyperglycemia Status: Acute Assessment and Plan: Patient's blood sugars were over 500. His last A1c was noted to be 7.1 last month but is now 8.0 today. blood sugar has normalized and CO2 has risen with IV insulin. Transitioned to Lantus with novel log before meals. he was having trouble with his pump and will even off at present time (2) Atypical chest pain: Code(s): R07.89 - Other chest pain Status: Acute Assessment and Plan: The patient's troponins are elevated but there chronically elevated and he appears to be at his baseline. echocardiogram showed no wall motion abnormalities with normal ejection fraction 60%. Cardiology has seen and does not feel that the pain was ischemic. will continue his beta-dana, statin, and aspirin (3) Hypothyroidism: Qualifiers: Hypothyroidism type: acquired Qualified Code(s): E03.9 - Hypothyroidism, unspecified Code(s): E03.9 - Hypothyroidism, unspecified Status: Acute Assessment and Plan: his TSH borderline elevated at 4.8 and continue to observe (4) Mixed hyperlipidemia: Code(s): E78.2 - Mixed hyperlipidemia Status: Acute Assessment and Plan: Continue with atorvastatin. (5) Essential (primary) hypertension: Code(s): I10 - Essential (primary) hypertension Status: Acute Assessment and Plan: Continue losartan and metoprolol with amlodipine. (6) Chronic obstructive pulmonary disease: Code(s): J44.9 - Chronic obstructive pulmonary disease, unspecified Status: Acute Assessment and Plan: The patient is not on any inhalers continue CPAP that he uses at home. (7) CKD stage 3 due to type 2 diabetes mellitus: Code(s): E11.22 - Type 2 diabetes mellitus with diabetic chronic kidney disease; N18.3 - Chronic kidney disease, stage 3 (moderate) Status: Acute Assessment and Plan: usual creatinine is 1.3 and will continue to follow. Pre renal insult with elevated blood sugar and should respond to hydration. Subjective Date/time seen: 05/17/20 16:16 Interval history: date of visit 05/17. 84-year-old hypertensive type 2 diabetic with insulin pump and chronic renal failure stage 3 admitted with atypical chest pain nausea and elevated blood sugar over 500. Beta hydroxybutyrate was elevated so patient was started on insulin drip. He feels much better this a.m. as sugar has come down with no chest pain, shortness of breath, or nausea Exam Narrative: Exam Narrative: blood pressure 126/62 pulse is 64 saturating 99% on room air afebrile pupils equal reactive light sclera anicteric lungs clear CV regular faint systolic murmur abdomen soft nontender no masses extremities without edema distal pulses are 2+ neuro alert pleasant cooperative no focal deficits Objective Data Vital Signs Vital Signs: Vital Signs - 24 hr 05/16/20 16:30 05/16/20 16:45 05/16/20 17:05 Temperature Pulse Rate 97 99 102 H Respiratory Rate 19 18 16 Blood Pressure 158/64 H Pulse Oximetry 05/16/20 17:44 05/16/20 17:45 05/16/20 17:46 Temperature Pulse Rate 92 93 94 Respiratory Rate 19 19 19 Blood Pressure 140/57 L Pulse Oximetry 05/16/20 18:00 05/16/20 18:01 05/16/20 18:11 Temperature Pulse Rate 97 95 95 Respiratory Rate 20 16 17 Blood Pressure 150/59 H 150/59 H Pulse Oximetry 100 05/16/20 20:00 05/16/20 20:17 05/16/20 21:10 Temperature 36.8 C Pulse Rate 94 99 97 Respiratory Rate 20 19 21 H Blood Pressure 131/62 Pulse Oximetry 91 91 90 05/16/20 21:31 05/16/20 22:00 05/17/20 00:00 Temperature 36.6 C Pulse Rate 98 95 93 Respiratory Rate 20 20 Blood Pressure 134/56 L 126/55 L Pulse Oximetry 93 90 95 05/17/20 02:00 05/17/20 02:12 05/17/20 03:49 Temperature Pulse Rate 91
[2020-05-17 17:21] LABS: Glucose Point of Care 292 (65-105)
--- NOTE | 2020-05-17 20:37 | PC.NURSE ---
This patient, Kurtis Allred, was received from [ ICU-8] on 05/17/20 at 1920. Personal belongings list checked and signed. Patient/family oriented to unit policies and routines
[2020-05-17 20:50] LABS: Glucose Point of Care 326 (65-105)
[2020-05-17] MEDS: INSULIN ASPART (*BKC) 100 UNITS/ML 10 UNITS SUB-Q (22:40)
[2020-05-18 01:01] VITALS: BP 140/50; PULSE 75; RESP 16; TEMP 36.2; O2SAT 96
[2020-05-18 02:14] VITALS: PULSE 78; RESP 19; O2SAT 96
[2020-05-18 04:18] VITALS: BP 150/55; PULSE 75; RESP 16; TEMP 36.4; O2SAT 95
[2020-05-18] MEDS: LEVOTHYROXINE SODIUM 125 MCG TABLET PO (05:55)
[2020-05-18 06:03] LABS: Hematocrit 31.6 % (42.0-52.0); Hemoglobin 10.6 g/dL (14.0-18.0); Mean Corpuscular HGB Conc 33.5 g/dl (32-36); Mean Corpuscular Volume 98.4 fl (80-100); Platelet Count Result 211 k/mm3 (150-375); Red Blood Count 3.21 M/mm3 (4.6-6.20); Red Cell Distribution Width 12.1 % (11.5-14.5)
[2020-05-18 06:36] LABS: Alanine Aminotransferase 22 U/L (4-50); Albumin Level 2.8 g/dL (3.5-5.1); Alkaline Phosphatase 60 U/L (38-126); Anion Gap 0 mmol/L (8-16); Aspartate Amino Transferase 53 U/L (17-59); Bilirubin,Total 0.7 mg/dL (0.2-1.3); Blood Urea Nitrogen 36 mg/dL (9-20); Calcium 8.1 mg/dL (8.4-10.2); Carbon Dioxide 34 mmol/L (22-30); Chloride 101 mmol/L (98-107); Estimated CRCL calculation 43 ml/min; Estimated Glomerular Filt Rate 45; Glucose 141 mg/dL (75-110); Magnesium 1.9 mg/dL (1.6-2.3); Potassium 4.3 mmol/L (3.4-5.0); Sodium 135 mmol/L (137-145)
[2020-05-18] MEDS: ONDANSETRON INJ 4 MG/2 ML VIAL IV PUSH (07:55)
[2020-05-18 08:00] VITALS: PULSE 62; RESP 16; O2SAT 95
[2020-05-18] MEDS: INSULIN ASPART (*BKC) 100 UNITS/ML SUB-Q ×3 (09:29→16:56)
[2020-05-18] MEDS: INSULIN GLARGINE (*BKC) 100 UNITS/ML 20 UNITS SUB-Q (09:32)
[2020-05-18 09:36] VITALS: PULSE 62
[2020-05-18] MEDS: LOSARTAN POTASSIUM 25 MG TABLET PO (09:36)
[2020-05-18] MEDS: ATORVASTATIN 40 MG TABLET PO (09:36)
[2020-05-18] MEDS: METOPROLOL TARTRATE 25 MG TABLET PO (09:36)
[2020-05-18] MEDS: CITALOPRAM HYDROBROMIDE 20 MG TABLET 40 MG PO (09:36)
[2020-05-18] MEDS: ASPIRIN 81 MG ENTERIC TABLET PO (09:36)
[2020-05-18] MEDS: HEPARIN SODIUM 5,000 UNITS/ML VIAL 5000 UNITS SUB-Q (09:36)
[2020-05-18] MEDS: amLODIPine BESYLATE 5 MG TABLET 10 MG PO (09:37)
[2020-05-18 11:59] LABS: Glucose Point of Care 192 (65-105)
[2020-05-18 12:27] LABS: Glucose Point of Care 406 (65-105)
[2020-05-18 12:27] LABS: Glucose Point of Care 400 (65-105)
[2020-05-18] MEDS: INSULIN ASPART (*BKC) 100 UNITS/ML 20 UNITS SUB-Q ×2 (12:30→15:15)
[2020-05-18 13:50] LABS: Glucose Point of Care 372 (65-105)
[2020-05-18] MEDS: INSULIN GLARGINE (*BKC) 100 UNITS/ML 16 UNITS SUB-Q (15:16)
[2020-05-18 16:50] LABS: Glucose Point of Care 250 (65-105)
[2020-05-18] MEDS: INSULIN ASPART (*BKC) 100 UNITS/ML 10 UNITS SUB-Q (16:57)
--- NOTE | 2020-05-18 18:25 | PM.DS ---
DS: Admitting Diagnosis Admitting Diagnosis Admitting Diagnosis: HYPERGLYCEMIA,CHEST PAIN,HYPERKALEMIA DS: Discharge Diagnosis Discharge Diagnosis (1) Uncontrolled diabetes mellitus: Code(s): E11.65 - Type 2 diabetes mellitus with hyperglycemia Status: Acute Assessment and Plan: Patient's blood sugars were over 500. His last A1c was noted to be 7.1 last month but is now 8.0 today. blood sugar has normalized and CO2 jermaine normal with IV insulin. Transitioned to Lantus with novel log before meals. FBS the day of discharge 141 and evening meal before discharge 250 he was having lots of trouble with his insulin pump and if had been in touch with his robotics specialist. He will use sliding scale with his lispro at home if his pump continues to mouth function and we gave him a script for the Lantus vial to use if needed (2) Atypical chest pain: Code(s): R07.89 - Other chest pain Status: Acute Assessment and Plan: The patient's troponins are elevated but there chronically elevated and he appears to be at his baseline. echocardiogram showed no wall motion abnormalities with normal ejection fraction 60%. Cardiology has seen and does not feel that the pain was ischemic. will continue his beta-dana, statin, and aspirin (3) Hypothyroidism: Qualifiers: Hypothyroidism type: acquired Qualified Code(s): E03.9 - Hypothyroidism, unspecified Code(s): E03.9 - Hypothyroidism, unspecified Status: Acute Assessment and Plan: his TSH borderline elevated at 4.8 and continue to observe (4) Mixed hyperlipidemia: Code(s): E78.2 - Mixed hyperlipidemia Status: Acute Assessment and Plan: Continue with atorvastatin. (5) Essential (primary) hypertension: Code(s): I10 - Essential (primary) hypertension Status: Acute Assessment and Plan: Continue losartan and metoprolol with amlodipine. (6) Chronic obstructive pulmonary disease: Code(s): J44.9 - Chronic obstructive pulmonary disease, unspecified Status: Acute Assessment and Plan: The patient is not on any inhalers continue CPAP that he uses at home. (7) CKD stage 3 due to type 2 diabetes mellitus: Code(s): E11.22 - Type 2 diabetes mellitus with diabetic chronic kidney disease; N18.3 - Chronic kidney disease, stage 3 (moderate) Status: Acute Assessment and Plan: l creatinine is 1.4 at discharge. Pre renal insult with elevated blood sugar. DS: Summary Hospital Course Hospital Course: 84-year-old gentleman presented with atypical chest pain and elevated blood sugars. was in mild diabetic ketoacidosis and blood sugars fell and CO2 jermaine with IV hydration and IV insulin. He had been having problems with his pump kinking and not supplying insulin properly. Transitioned the Lantus and NovoLog here. He was in touch with his robotics specialist and will tries pump again but of fails will go back to Lantus which he given mobile 5 of on discharge prescription and the lispro which he has at home. He has syringes and other supplies. He will follow-up with primary care as scheduled and follow up with the robotics specialist within the next week Time Spent with Patient Time attestation: Total time spent providing and/or coordinating discharge services: 35 minutes Exam Narrative: Exam Narrative: condition on discharge blood pressure 150/54 pulse 74 afebrile lungs clear CV regular rate rhythm abdomen soft nontender extremities without edema neuro alert pleasant cooperative no focal deficits he was up ambulating taking her regular diabetic diet with no nausea or vomiting feeling much better. stable to be discharged home DS: Data Data Completed and Pending Labs on day of discharge: Labs from last 24 hours 05/18/20 05/18/20 05/18/20 16:23 13:34 12:16 WBC RBC Hgb Hct MCV MCH MCHC RDW Plt Count MPV S
--- NOTE | 2020-05-18 18:26 | PC.NURSE ---
1800 Patient refuses flu vaccine.
== END 2020-05-18 18:25 | disposition home or self-care (01) ==
LOC: ANHED 17:19 → ANHICU 18:58 → ANH3MED 05-18 11:46 → ANHICU 05-21 09:06
PROVIDERS: Internal Medicine; Nurse Practitioner; Admitting Provider Family Medicine; Emergency Provider Emergency Medicine; PCP Internal Medicine; Visit Provider Internal Medicine
DX: R07.89 Other chest pain (principal); R11.2 Nausea with vomiting, unspecified; E11.65 Type 2 diabetes mellitus with hyperglycemia; R35.8 Other polyuria; I25.10 Atherosclerotic heart disease of native coronary artery without angina pectoris; Z68.34 Body mass index [BMI] 34.0-34.9, adult; J44.9 Chronic obstructive pulmonary disease, unspecified; I13.0 Hypertensive heart and chronic kidney disease with heart failure and stage 1 through stage 4 chronic kidney disease, or unspecified chronic kidney disease; E11.22 Type 2 diabetes mellitus with diabetic chronic kidney disease; N18.30 Chronic kidney disease, stage 3 unspecified; I50.33 Acute on chronic diastolic (congestive) heart failure; E03.9 Hypothyroidism, unspecified; Z79.4 Long term (current) use of insulin; Z96.41 Presence of insulin pump (external) (internal); Z82.49 Family history of ischemic heart disease and other diseases of the circulatory system; J81.1 Chronic pulmonary edema; J90 Pleural effusion, not elsewhere classified; E87.5 Hyperkalemia; E86.0 Dehydration; R77.8 Other specified abnormalities of plasma proteins; I25.2 Old myocardial infarction; R94.31 Abnormal electrocardiogram [ECG] [EKG]; N17.9 Acute kidney failure, unspecified
CPT/HCPCS: 36415; 36600; 71046; 80048; 80053; 81001; 82010; 82375; 82805; 82948; 83036; 83050; 83690; 83735; 83880; 84100; 84439; 84443; 84484; 85025; 85027; 85610; 85730; 90715; 93005; 93306; 96365; 96366; 96367; 96375; 96376; 99285; A9270; G0378; J0610; J1644; J1815; J2405; J2765; J3480; J7030

== ENCOUNTER 2020-06-20 12:30 | Outpatient (RCR) | payer MEDICARE, SELFPAY ==
[2020-06-20 12:40] VITALS: BMI 32.9
== END 2020-08-26 14:30 | disposition home or self-care (01) ==
LOC: ANHDMC 12:30
PROVIDERS: PCP Internal Medicine; Visit Provider Internal Medicine Endocrinology, Diabetes & Metabolism
DX: E10.65 Type 1 diabetes mellitus with hyperglycemia (principal); Z71.89 Other specified counseling; Z71.3 Dietary counseling and surveillance
CPT/HCPCS: 97802; G0108

== ENCOUNTER 2020-11-20 14:30 | Outpatient (RCR) | payer MEDICARE, SELFPAY ==
--- NOTE | 2020-10-30 15:46 | PTOPEVAL ---
PHYSICAL THERAPY EVALUATION Thank you for referring Kurtis Allred to [facility] Kurtis was evaluated for the dx of right shoulder pain/ cervicalgia. The patient is scheduled to be seen for therapy? 1 x/week for 5 weeks. Please review, sign, date and return this plan of care AKI. I agree with and certify that the following plan of care is medically necessary. Referring Physician Date Referring Provider: Braeden Muñoz MD *PT Outpatient Evaluation Start: 10/30/20 14:17 Freq: Status: Active Protocol: Document 10/30/20 14:18 MLV (Rec: 10/30/20 15:20 MLV [id number]) Therapy Assessment Status Assessment Status Evaluation Evaluation Information Problem Diagnosis right shoulder pain/ cervicalgia Onset 1 month ago Cause possibly when working with snowblower but no noted pain during activity Additional Evaluation Detail Patient reports having right shoulder pain that affected his sleep and use of arm, starting after using the snowblower. The patient saw the MD and received a cortisone shot. The patient reports relief since the shot. Prior to shot the pain was 8/10 constant, and since the shot-the pain is 1 at rest and 4 with activity. Pain occurs with certain motions including reach, shaving, driving. Pain Assessment Timing of Pain Assessment Timing of Pain Assessment Assessment Pain Scale Pain Scale Used Numeric (1 - 10) Self Report Pain Assessment Right Shoulder(s) Reported Pain Level 1 Pain Description Aching Pain Frequency Acute Greatest Pain Intensity 4 Pain Aggravating Factors Exercise/Activity,Lifting Pain Behaviors None Pain Score Pain Score 1: Self Report Interventions Used Interventions Used By Clinicians Education,Exercise Pain Relief Interventions Used By Heat,Inactivity/Rest Patient Cervical and Lumbar ROM Cervical ROM Cervical Flexion (0-60) 45 Query Text:Active in Degrees Cervical Extension (0-70) 20 Query Text:Active in Degrees Cervical Lateral Flexion Right (0-50) 10 Query Text:Active in Degrees Cervical Lateral Flexion Left (0-50) 15 Query Text:Active in Degrees Cervical Rotation Right (0-90) 35 Query Text:Active in Degrees Cerv
--- NOTE | 2020-11-27 14:52 | PCPTNOTE ---
PHYSICAL THERAPY DISCHARGE Attending Provider: Braeden Muñoz MD Patient:Kurtis Allred Date of :1935 Patient has not returned for his last appointment today (11/27/20) but patient was pain free and had met all goals as of his last appointment. The patient was called and a message left. The patient will be discharged at this time due to no further skilled PT needs. Patient?s initial visit was on 10/30/2020 14:15 and he had a total of 4 visits. Thank you for referring this patient to [facility]. Please review, sign, date and return this discharge summary AKI. I have been updated about the patient's current status and I agree with discharge from the above service at this time. Referring Physician Date
== END 2020-11-28 07:43 | disposition home or self-care (01) ==
LOC: ANHPT 14:30
PROVIDERS: PCP Internal Medicine; Referring Provider Orthopaedic Surgery; Visit Provider Orthopaedic Surgery
DX: M25.511 Pain in right shoulder (principal); M54.2 Cervicalgia
CPT/HCPCS: 97110; 97140; 97161

== ENCOUNTER 2020-12-05 13:56 | Outpatient (RCR) | payer MEDICARE, SELFPAY | END 2020-12-05 15:12 | disposition home or self-care (01) | LOC: ANHDMC 13:56 | PROVIDERS: PCP Internal Medicine; Visit Provider Internal Medicine Endocrinology, Diabetes & Metabolism | DX: E10.65 Type 1 diabetes mellitus with hyperglycemia (principal); Z71.89 Other specified counseling | CPT/HCPCS: G0108 ==

== ENCOUNTER → 2021-06-30 02:24 | Outpatient (CLI) | payer MEDICARE, SELFPAY ==
[2021-06-30 18:36] LABS: SARS-CoV-2 RNA PCR Negative
== END ==
PROVIDERS: PCP Internal Medicine; Visit Provider Internal Medicine Critical Care Medicine
DX: G47.33 Obstructive sleep apnea (adult) (pediatric) (principal); Z20.822 Contact with and (suspected) exposure to COVID-19
CPT/HCPCS: C9803; U0003; U0005

== ENCOUNTER 2021-07-01 07:59 | Outpatient (CLI) | payer MEDICARE, SELFPAY ==
--- NOTE | 2021-07-21 13:48 | WPDSLEEPSTUD ---
Sleep Study Date of Study: 07/01/21 <Connie Multani DO - Last Filed: 07/21/21 14:19> Ordering Provider: Peyton Golden MD <Connie Multani DO - Last Filed: 07/21/21 14:19> Interpreting Physician: Connie Multani DO <Connie Multani DO - Last Filed: 07/21/21 14:19> Sleep Study Type: Polysomnogram <Connie Multani DO - Last Filed: 07/21/21 14:19> Height: 1.8 m <Connie Multani DO - Last Filed: 07/21/21 14:19> Weight: 107.955 kg <Connie Multani DO - Last Filed: 07/21/21 14:19> Body Mass Index: 33.2 <Connie Multani DO - Last Filed: 07/21/21 14:19> Neck Circumference (inches): 20 <Connie Multani DO - Last Filed: 07/21/21 14:19> [place]: 2 <Connie Multani DO - Last Filed: 07/21/21 14:19> Reason for Sleep Study Previously diagnosed ROCKY. Despite being complaint with PAP Therapy, he has daytime hypersomnia. <Connie Multani DO - Last Filed: 07/21/21 14:19> Sleep History The patient is an 86-year-old male with chronic diastolic congestive heart failure, coronary artery disease, COPD, diabetes, hypothyroidism, lupus, hypertension and history of TIA and NSTEMI that had a sleep study ordered by his primary care physician for daytime hypersomnia despite being compliant with PAP therapy. The patient denies awakening from sleep short of breath. He denies awakening at night with heartburn, belching or cough. He frequently snores loud enough that others complain. He denies having trouble sleeping when he has a cold. He denies suddenly waking up gasping for air throughout the night. He denies having breathing problems at night observed by others. He denies sweating excessively at night. He denies heart palpitations or irregular heartbeats during the night. He denies falling asleep during the day and while driving. He denies sleep paralysis, cataplexy and hypnagogic / hypnopompic hallucinations. He denies having nightmares. He rarely feels sad or depressed. He rarely feels anxious. He denies noticing parts of his body jerk and kicking during the night. He denies crawling and aching feelings in his legs as well as leg pain during the night. He denies grinding his teeth during sleep and awakening with morning jaw pain. He is rarely bothered by pain during the day and is rarely awakened by pain during the night. He rarely wakes up feeling stiff in the morning. He goes to bed between 9 and 10:00 p.m. on both weekdays and weekends. He can fall asleep relatively quickly. He wakes at least 2 times per night to use the restroom. He can fall asleep relatively quickly. He does not stay in bed lung after waking up in the morning. He currently lives with his . He does not consume any caffeinated beverages within 2 hours of bedtime. He does not engage in physical exercise before bedtime. He will watch television before falling asleep. He does take occasional naps during the afternoon or the evening and they are refreshing. He drinks 2 cups of caffeinated beverage per day. He denies tobacco, alcohol and recreational drug use. <Connie Multani DO - Last Filed: 07/21/21 14:19> [facility] Past Medical History Medical History: Medical History Acute on chronic diastolic CHF (congestive heart failure) Diast CHF dx'd 2019 Albuminuria Arthritis, lumbar spine ASHD (arteriosclerotic heart disease) Bilateral hand pain Bilateral hand pain BMI 34.0-34.9,adult Chronic obstructive pulmonary disease CKD stage 3 due to type 2 diabetes mellitus Counseling on health promotion and disease prevention Depression Diabetes mellitus Diastolic heart failure, NYHA class 1 Encounter for medication management Encounter for screening for other viral diseases Essential (primary) hypertension Health education Hemoglobin A1c less than 7.0% A1c =6.8 on 09/06/20 History of CVA (cerebrovas
[2021-07-21 14:00] VITALS: BMI 33.2
== END 2021-07-02 06:51 | disposition home or self-care (01) ==
LOC: ANHCSM 07:59
PROVIDERS: PCP Internal Medicine; Visit Provider Internal Medicine Critical Care Medicine
DX: G47.33 Obstructive sleep apnea (adult) (pediatric) (principal)
CPT/HCPCS: 95810

== ENCOUNTER → 2021-09-23 02:19 | Outpatient (CLI) | payer MEDICARE, SELFPAY ==
[2021-09-23 11:29] LABS: Influenza A QL RT-PCR Negative (Negative); Influenza B QL RT-PCR Negative (Negative); SARS-CoV-2 RNA PCR Positive
== END ==
PROVIDERS: PCP Internal Medicine; Visit Provider Internal Medicine
DX: R68.89 Other general symptoms and signs (principal); U07.1 COVID-19
CPT/HCPCS: 87502; C9803; U0003; U0005

== ENCOUNTER 2021-09-24 07:46 | Inpatient (IN) | payer MEDICARE, SELFPAY ==
[2021-09-24] VITALS (21 sets, daily range): BP systolic 141–167; BP diastolic 59–73; PULSE 70–94; RESP 16–27; TEMP 36.9–37.6; O2SAT 61–96; BMI 32.8
--- NOTE | ~2021-09-24 | XR_ITS ---
EXAMINATION: XR chest 1V portable INDICATION: Shortness of breath TECHNIQUE: Portable AP chest at 0754 hours COMPARISON: 09/24/2021 FINDINGS: There are patchy airspace opacities throughout all lung zones, worst in the midlung zones, which demonstrate slight interval improvement. There is no pleural effusion or pneumothorax. The card iomediastinal silhouette is normal. IMPRESSION: 1. Diffuse lung disease with interval improvement, consistent with pneumonia. Reviewed, dictated and finalized at location A. INE BINDER STRIPPER
--- NOTE | ~2021-09-24 | XR_ITS ---
EXAMINATION: XR chest 1V portable EXAM DATE: 09/30/2021 06:12 INDICATION: COVID TECHNIQUE: Portable AP frontal chest x-ray was obtained. Comparison is made to prior examination from 09/28/2021. FINDINGS: There is a right-sided PICC line with tip projecting over the cavoatrial junction. Cardia c silhouette is enlarged but stable in size compared to prior exam. Moderate to large amount of bilat eral airspace disease, pneumonia and/or edema. No pneumothorax or pleural effusion. Patient has diffu se idiopathic skeletal hyperostosis (DISH). IMPRESSION: Moderate to large amount of bilateral pneumonia or edema unchanged. Reviewed, dictated and finalized at location A. UNTING AUDITOR
--- NOTE | ~2021-09-24 | CT_ITS ---
EXAMINATION: CT diagnostic chest wo con DATE: 09/26/2021 11:40 INDICATION: CHF vs Covid pneumonia TECHNIQUE: Computed tomography (CT) of the chest was performed without intravenous contrast. Addition al 3D reconstructions utilizing coronal maximum intensity projection (MIP) were performed. Automated exposure control and iterative reconstruction technique were employed. The dose-length product was 68 8.52 mGy-cm. COMPARISON: 11/05/2018 FINDINGS: Large regions of decreased paving pattern with groundglass opacities and smooth septal line thickenin g throughout both lungs within which are smaller patchy regions of more dense consolidation. Small bi lateral pleural effusions. Cardiomegaly. Extensive atherosclerotic coronary artery calcifications. Th oracic aorta is normal in caliber. No pathologically enlarged thoracic lymphadenopathy. Cholecystecto my clips the gallbladder fossa. There are bridging osteophytes at multiple levels in the spine, consi stent with diffuse idiopathic skeletal hyperostosis (DISH). IMPRESSION: 1. Diffuse bilateral lung disease which could represent pulmonary edema or COVID pneumonia. Based on appearance on the distribution as well as the presence of small bilateral pleural effusions with favo r the former. 2. Cardiomegaly. Reviewed, dictated and finalized at location A. RACT NEGOTIATION MANAGER IMPRESSION: 1. Diffuse bilateral lung disease which could represent pulmonary edema or COVI D pneumonia. Based on appearance on the distribution as well as the presence of small bilateral pleural effusions with favor the former. 2. Cardiomegaly.
--- NOTE | ~2021-09-24 | XR_ITS ---
XR chest 1V portable 09/28/2021 05:49 Indication: Covid infection Procedure: AP portable chest Comparison: Comparison to multiple prior studies sequentially, with oldest reviewed study dated 11/05. Findings: Borderline heart size. PICC line tip in the SVC. Persistent extensive bilateral airspace di sease has progressed. Impression: 1: Diffuse bilateral airspace disease which may represent edema or pneumonia. Reviewed, dictated and finalized at location A. NOMICS CONSULTANT Impression: 1: Diffuse bilateral airspace disease which may represent edema or pneumonia.
--- NOTE | ~2021-09-24 | XR_ITS ---
EXAMINATION: XR chest 1V portable INDICATION: Shortness of breath, COVID 19 TECHNIQUE: Portable AP chest at 0534 hours COMPARISON: 09/30/2021 FINDINGS: A right upper extremity PICC ends with its tip in the distal superior vena cava. Patchy air space opacities persist throughout all lung zones, worst in the midlung zones, without significant ch eusebia. There is no pleural effusion or pneumothorax. The cardiomediastinal silhouette is stable. IMPRESSION: 1. Stable diffuse lung disease, consistent with pneumonia and/or pulmonary edema. Reviewed, dictated and finalized at location A. E ICER IMPRESSION: 1. Stable diffuse lung disease, consistent with pneumonia and/or pulmonary kimberli a.
--- NOTE | ~2021-09-24 | XR_ITS ---
EXAMINATION: XR chest 1V portable DATE: 09/24/2021 08:25 INDICATION: Cough and shortness of breath. TECHNIQUE: A single frontal view of the chest was obtained. COMPARISON: Chest 2 views 05/16/2020, chest CT 11/05/2018 FINDINGS: There are patchy airspace opacities involving all lung zones bilaterally, worst in the midl amparo zones. No pleural effusion or pneumothorax. The heart size is normal. IMPRESSION: 1. Diffuse lung disease, consistent with pneumonia. Reviewed, dictated and finalized at location A. COOLER
--- NOTE | ~2021-09-24 | XR_ITS ---
XR chest 1V portable 09/28/2021 11:26 Indication: Shortness of breath Procedure: AP portable chest Comparison: Comparison to multiple prior studies sequentially, with oldest reviewed study dated 03/2020. Findings: PICC line tip in the SVC. Cardiomegaly. Diffuse bilateral airspace disease has progressed w hich may represent pneumonia and/or edema. No significant effusion or pneumothorax. Impression: 1: Progression of diffuse bilateral airspace disease which may represent pneumonia and/or edema. Reviewed, dictated and finalized at location A. RNAL CONTROLS MANAGER Impression: 1: Progression of diffuse bilateral airspace disease which may represent pneumo elpidio and/or edema.
--- NOTE | ~2021-09-24 | XR_ITS ---
EXAMINATION: XR chest 1V portable DATE: 10/03/2021 05:52 INDICATION: COVID-19 pneumonia. TECHNIQUE: A single frontal view of the chest was obtained. COMPARISON: Chest single view 10/01/2021, chest CT 09/26/2021 FINDINGS: There are airspace opacities in all lung zones bilaterally. No pleural effusion or pneumoth orax. Cardiomegaly is noted. A right upper extremity peripherally inserted central venous catheter (P ICC) is seen with tip in the proximal right atrium. IMPRESSION: 1. Worsened diffuse lung disease, consistent with pulmonary edema versus pneumonia. 2. Cardiomegaly. Reviewed, dictated and finalized at location A. ORATE REAL ESTATE MANAGER IMPRESSION: 1. Worsened diffuse lung disease, consistent with pulmonary edema versus pneumo elpidio. 2. Cardiomegaly.
--- NOTE | 2021-09-24 08:07 | ECG_ITS ---
Measurements Intervals [place] Rate: 82 P: 79 DC: 206 QRS: -36 QRSD: 106 T: 55 QT: 374 QTc: 437 Interpretive Statements SINUS RHYTHM LEFT AXIS DEVIATION BASELINE ARTIFACT- I, II, III, AVR, AVL, AVF, V2-V6 BORDERLINE ECG Electronically Signed On 09-24-2021 8:45:24 VAT WASHER by Rich Contreras D.O.
[2021-09-24 08:18] LABS: Hematocrit 37.9 % (42.0-52.0); Hemoglobin 12.5 g/dL (14.0-18.0); Immature Granulocyte Absolute 0.02 K/mm3 (0.00-0.031); Immature Granulocyte Percent A 0.5 % (0-0.5); Lymphocytes Absolute Auto 1.11 K/mm3 (0.9-3.2); Mean Corpuscular Hemoglobin 32.9 pg (26-34); Mean Corpuscular Volume 99.7 fl (80-100); Mean Platelet Volume 10.4 fl (7.4-10.4); Monocytes Absolute Auto 0.7 K/mm3 (0.1-0.6); Monocytes Percent Auto 17.3 % (2.6-8.5); Neutrophils Absolute Auto 2.3 K/mm3 (1.3-6.7); Neutrophils Percent Auto 55.2 % (45.5-73.1); Platelet Count Result 179 k/mm3 (150-375); Red Cell Distribution Width 12.2 % (11.5-14.5); White Blood Count 4.1 K/mm3 (4.5-10.0)
[2021-09-24 08:27] LABS: Alanine Aminotransferase 37 U/L (4-50); Albumin Level 3.4 g/dL (3.5-5.1); Alkaline Phosphatase 61 U/L (38-126); Anion Gap 8 mmol/L (8-16); Aspartate Amino Transferase 99 U/L (17-59); Bilirubin,Total 0.4 mg/dL (0.2-1.3); Blood Urea Nitrogen 34 mg/dL (9-20); Calcium 7.9 mg/dL (8.4-10.2); Carbon Dioxide 32 mmol/L (22-30); Chloride 91 mmol/L (98-107); Estimated CRCL calculation 34 ml/min; Estimated Glomerular Filt Rate 36; Glucose 134 mg/dL (65-110); Potassium 3.9 mmol/L (3.4-5.0); Sodium 131 mmol/L (137-145)
[2021-09-24 08:44] LABS: Prothrombin Time 12.9 Seconds (11.1-14.7)
[2021-09-24 08:46] LABS: Partial Thromboplastin Time 37.3 SECONDS (22.3-36.8)
[2021-09-24 09:00] LABS: Alveolar/Arterial O2 Gradient 121.3 mmHg; Base Excess ABG 5.7 mEq/l (+/-2.0); Fractional Inspired Oxygen 32 %; HCO3 ABG 30.1 mEq/l (22.0-26.0); Oxygen Content ABG 15.4 %vol (16.0-22.0); Oxygen Saturation ABG 90.8 % (95.0-100.0); Oxyhemoglobin 87.9 % THb (90.0-100.0); PCO2 ABG 43.1 mmHg (35.0-45.0); PO2 ABG 56.4 mmHg (80.0-100.0); PO2 FiO2 Ratio Arterial Blood 1.76 %; Total Hemoglobin 12.5 g/dL (12.0-18.0); pH ABG 7.462 (7.350-7.450)
[2021-09-24 09:01] LABS: Device NASAL CANNULA; Modified Allen's Test Pass; Site Drawn RIGHT RADIAL
--- NOTE | 2021-09-24 09:11 | ED.SOB ---
HPI - SOB/Dyspnea General Chief Complaint: Shortness of Breath/Dyspnea Stated Complaint: COVID+ 2/15; his oxygen level is low Time Seen by Provider: 09/24/21 08:36 Source: patient Mode of arrival: ambulatory Limitations: no limitations History of Present Illness HPI Narrative: Patient is 86 years old white male developed Covid symptoms 6 days ago, tested positive yesterday, came to the emergency room because of difficulty breathing. Patient is not vaccinated because he does not want it, patient is full code. Patient does not take oxygen at home, lives with his who is asymptomatic. Patient denies any fever, chills, nausea, vomiting or chest pain. History of COPD, congestive heart failure, rheumatoid arthritis, systemic lupus, diabetes, pulmonary hypertension Related Data Home Medications Medication Instructions Recorded Confirmed aspirin 81 mg tablet,delayed 81 mg PO DAILY 06/20/19 09/17/21 release metoprolol tartrate 25 mg tablet 25 mg PO BID tablet 12/29/19 09/17/21 losartan 25 mg tablet 25 mg PO DAILY 04/29/20 09/17/21 atorvastatin 40 mg PO DAILY 05/16/20 09/17/21 amlodipine 10 mg tablet 10 mg PO DAILY 12/11/20 09/17/21 furosemide 40 mg tablet 40 mg PO DAILY tablet 02/26/21 09/17/21 Allergies Allergy/AdvReac Type Severity Reaction Status Date / Time hydrocodone Allergy Unknown Nausea and Verified 09/17/21 09:13 Vomiting morphine Allergy Unknown nausea Verified 09/17/21 09:13 Review of Systems Review of Systems: CONSTITUTIONAL: Denies fever, chills, or sweats. EYES: Denies visual changes, redness, or discharge. ENT: Denies rhinorrhea, congestion, sore throat, or otalgia. CARDIOVASCULAR: Denies chest pain, palpitations, or edema. RESPIRATORY: Denies cough or dyspnea. GASTROINTESTINAL: Denies abdominal pain, nausea, vomiting, or diarrhea. GENITOURINARY: Denies dysuria or hematuria. SKIN: Denies rash or itching. MUSCULOSKELETAL: Denies back pain, joint pain, or myalgia. NEUROLOGIC: Denies headache, numbness, or weakness. PSYCHIATRIC: Denies anxiety or depression. [facility] Past Medical History Medical History Acute dehydration Acute hyperglycemia Acute hyperkalemia Acute on chronic diastolic CHF (congestive heart failure) Diast CHF dx'd 2018 FERMIN (acute kidney injury) Albuminuria Arthritis, lumbar spine ASHD (arteriosclerotic heart disease) Bilateral hand pain Bilateral hand pain BMI 34.0-34.9,adult Chronic obstructive pulmonary disease CKD stage 3 due to type 2 diabetes mellitus Counseling on health promotion and disease prevention Depression Diabetes mellitus Diastolic heart failure, NYHA class 1 Encounter for medication management Encounter for screening for other viral diseases Essential (primary) hypertension Health education Hemoglobin A1c less than 7.0% A1c =6.8 on 09/06/20 History of CVA (cerebrovascular accident) History of poisoning carbon dioxide poisoning Hypothyroidism Hypothyroidism (acquired) Inflammatory arthritis (~08/2018) Insulin dependent diabetes mellitus Insulin dependent diabetes mellitus Insulin pump titration Kyphosis Lupus (systemic lupus erythematosus) Mixed hyperlipidemia Nausea & vomiting [place] (myocardial infarction) 1989, NSTEMI, med tx ROCKY on CPAP Osteoarthritis of right hip Other specified counseling Pain in right shoulder 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
[2021-09-24] MEDS: DEXAMETHASONE 2 MG TABLET 6 MG PO (10:02)
--- NOTE | 2021-09-24 10:14 | PC.NURSE ---
attempt to return call from unsuccessful. no answer.
--- NOTE | 2021-09-24 10:32 | PM.IMHP ---
H&P: HPI History of Present Illness Date/Time: 09/24/21 10:32 Chief Complaint: COVID-19 pneumonia Narrative: Patient is an 86 year male with past medical history of diabetes mellitus insulin dependent, hypothyroidism, chronic diastolic heart failure, hypertension and reportedly lupus. ?Patient denies a diagnosis of lupus? Patient reports to the emergency department after developing shortness of breath, nausea and diarrhea since September 19. Upon arrival to the emergency department the patient was noted to be hypoxic and 3 L of oxygen was applied per nasal cannula. Labs and imaging obtained in the ED. Chest x-ray revealed diffuse lung disease consistent with pneumonia and labs were significant for a WBC 4.1, hemoglobin 12.5, hematocrit 37.9, platelet 179. D-dimer 1.43, ABG obtained revealed a pH of 7.462, PO2 56.4, pCO2 43.1, bicarb 30.1. Sodium 131, chloride 91, creatinine 1.8, BUN 34, GFR 36 and a glucose of 134. AST mildly elevated at 99, other LFTs within normal limits. Any any positive COVID test in the emergency department. Patient is being admitted for COVID 19 pneumonia, acute hypoxic respiratory failure related to COVID PNA, and hyponatremia. Discussed risks and benefits of remdesivir, dexamethasone and albuterol inhaler along with his current medication regimen. Review of Systems Review of Systems: All systems reviewed & are unremarkable except as noted in HPI and below PMFSH Past Medical History Medical History Acute dehydration Acute hyperglycemia Acute hyperkalemia Acute on chronic diastolic CHF (congestive heart failure) Diast CHF dx'd 2018 FERMIN (acute kidney injury) Albuminuria Arthritis, lumbar spine ASHD (arteriosclerotic heart disease) Bilateral hand pain Bilateral hand pain BMI 34.0-34.9,adult Chronic obstructive pulmonary disease CKD stage 3 due to type 2 diabetes mellitus Counseling on health promotion and disease prevention Depression Diabetes mellitus Diastolic heart failure, NYHA class 1 Encounter for medication management Encounter for screening for other viral diseases Essential (primary) hypertension Health education Hemoglobin A1c less than 7.0% A1c =6.8 on 09/06/20 History of CVA (cerebrovascular accident) History of poisoning carbon dioxide poisoning Hypothyroidism Hypothyroidism (acquired) Inflammatory arthritis (~08/2018) Insulin dependent diabetes mellitus Insulin dependent diabetes mellitus Insulin pump titration Kyphosis Lupus (systemic lupus erythematosus) Mixed hyperlipidemia Nausea & vomiting Old IA (myocardial infarction) 1989, NSTEMI, med tx ROCKY on CPAP Osteoarthritis of right hip Other specified counseling Pain in right shoulder 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set Age: 80 Patient's mother is Social History Social History Social History: the patient has 2 children. He is to his 2nd . The patient is a full code. And his is a durable power prosecuting attorney for healthcare. 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 Lifelong nonsmoker and does not drink or use illicit substances. Smoking status: Never smoker Second hand tobacco smoke exposure: No Alcohol intake: never Substance use: never Substance use type: does not use Gender identity (if verbalized by the patient): Mal
[2021-09-24 10:55] LABS: D Dimer 1.43 ug/mL (<0.48)
[2021-09-24] MEDS: REMDESIVIR 200 MG/NS 250 ML 200 MG/250 ML BAG 250 MG IVPB (11:00)
--- NOTE | 2021-09-24 11:14 | ADMGEN ---
This patient, Kurtis Allred, was admitted to [facility] Surg Room 301-01. Patient/family oriented to hospital policies and general routines including ID bracelet, bed and alarms, visiting hours, pain management, procedures, bathroom and other care routines, personal items, smoking policy, room service/diet, and visiting hours. Information on how to activate the Rapid Response Team has been discussed. Patient/Family are encouraged to report perceived risks to care and to ask questions if they do not understand what they are told or what they should do.
[2021-09-24 11:28] LABS: CRP 18.5 mg/dL (<1.0); Lactate Dehydrogenase 1036 U/L (313-618)
[2021-09-24 12:16] LABS: Glucose Point of Care 153 mg/dl (65-105)
--- NOTE | 2021-09-24 12:39 | ECG_ITS ---
Measurements Intervals [place] Rate: 83 P: 76 OK: 196 QRS: -41 QRSD: 101 T: 49 QT: 367 QTc: 431 Interpretive Statements SINUS RHYTHM LEFT AXIS DEVIATION BASELINE WANDER- V6 BORDERLINE ECG Electronically Signed On 09-24-2021 18:17:33 TRAFFIC CONTROL TECHNICIAN by Rich Contreras D.O.
--- NOTE | 2021-09-24 12:39 | PHAR ---
Talked with Carmina Mora about hydroxychloroquine interactions with citalopram, zofran & remdesivir. Because of its long 1/2 life, stopping hydroxychloroquine would be of little benefit. Will monitor patients QT interval & renal function.
[2021-09-24] MEDS: ALBUTEROL SULFATE (*SP) INHALER 2 PUFF INHALATION ×2 (14:14→20:01)
[2021-09-24 16:53] LABS: Glucose Point of Care 165 mg/dl (65-105)
[2021-09-24] MEDS: HYDROXYCHLOROQUINE SULFATE 200 MG TABLET PO (17:20)
[2021-09-24] MEDS: METOPROLOL TARTRATE 25 MG TABLET PO (20:18)
[2021-09-24 21:54] LABS: Glucose Point of Care 91 mg/dl (65-105)
[2021-09-24] MEDS: MELATONIN 3 MG TABLET PO (23:56)
[2021-09-25] VITALS (14 sets, daily range): BP systolic 123–140; BP diastolic 52–59; PULSE 59–83; RESP 18–20; TEMP 36.1–36.9; O2SAT 85–94
[2021-09-25] MEDS: ALBUTEROL SULFATE (*SP) INHALER 2 PUFF INHALATION ×4 (02:41→19:29)
[2021-09-25 06:36] LABS: Hematocrit 32.4 % (42.0-52.0); Hemoglobin 11.2 g/dL (14.0-18.0); Immature Granulocyte Absolute 0.01 K/mm3 (0.00-0.031); Immature Granulocyte Percent A 0.2 % (0-0.5); Lymphocytes Absolute Auto 0.52 K/mm3 (0.9-3.2); Lymphocytes Percent Auto 12.2 % (18.3-44.2); Mean Corpuscular HGB Conc 34.6 g/dl (32-36); Mean Corpuscular Hemoglobin 33.3 pg (26-34); Mean Corpuscular Volume 96.4 fl (80-100); Mean Platelet Volume 10.4 fl (7.4-10.4); Monocytes Absolute Auto 0.6 K/mm3 (0.1-0.6); Monocytes Percent Auto 12.9 % (2.6-8.5); Neutrophils Absolute Auto 3.2 K/mm3 (1.3-6.7); Neutrophils Percent Auto 74.7 % (45.5-73.1); Platelet Count Result 192 k/mm3 (150-375); Red Blood Count 3.36 M/mm3 (4.6-6.20); Red Cell Distribution Width 12.2 % (11.5-14.5); White Blood Count 4.3 K/mm3 (4.5-10.0)
[2021-09-25] MEDS: LEVOTHYROXINE SODIUM 125 MCG TABLET PO (06:48)
--- NOTE | 2021-09-25 07:00 | ECG_ITS ---
Measurements Intervals [place] Rate: 69 P: 80 [place]: 224 QRS: -37 QRSD: 97 T: 52 QT: 401 QTc: 430 Interpretive Statements SINUS RHYTHM WITH FIRST DEGREE AV BLOCK LEFT AXIS DEVIATION ABNORMAL ECG Electronically Signed On 09-25-2021 12:19:10 FINISHING TUNNEL OPERATOR by Rich Contreras D.O.
[2021-09-25 07:08] LABS: Alanine Aminotransferase 38 U/L (4-50); Anion Gap 8 mmol/L (8-16); Aspartate Amino Transferase 106 U/L (17-59); Blood Urea Nitrogen 44 mg/dL (9-20); Calcium 7.4 mg/dL (8.4-10.2); Carbon Dioxide 27 mmol/L (22-30); Chloride 94 mmol/L (98-107); Estimated CRCL calculation 29 ml/min; Estimated Glomerular Filt Rate 30; Glucose 190 mg/dL (65-110); Magnesium 2.2 mg/dL (1.6-2.3); Potassium 3.9 mmol/L (3.4-5.0); Sodium 129 mmol/L (137-145)
[2021-09-25 07:10] LABS: Alveolar/Arterial O2 Gradient 610.1 mmHg; Base Excess ABG 5.3 mEq/l (+/-2.0); Device HIGH FLOW NASAL CANN; Fractional Inspired Oxygen 100 %; HCO3 ABG 29.7 mEq/l (22.0-26.0); Modified Allen's Test Pass; Oxygen Content ABG 15.1 %vol (16.0-22.0); Oxygen Saturation ABG 92.1 % (95.0-100.0); Oxyhemoglobin 88.6 % THb (90.0-100.0); PCO2 ABG 42.9 mmHg (35.0-45.0); Site Drawn RIGHT RADIAL; Total Hemoglobin 12.1 g/dL (12.0-18.0); pH ABG 7.458 (7.350-7.450)
[2021-09-25 07:17] LABS: NT Pro B Type Natriuretic Pept 2550 pg/mL (5-100)
[2021-09-25] MEDS: ENOXAPARIN 40 MG/0.4 ML SYRINGE SUB-Q (08:20)
[2021-09-25] MEDS: amLODIPine BESYLATE 5 MG TABLET 10 MG PO (08:21)
[2021-09-25] MEDS: METOPROLOL TARTRATE 25 MG TABLET PO ×2 (08:22→21:33)
[2021-09-25] MEDS: ATORVASTATIN 40 MG TABLET PO (08:22)
[2021-09-25] MEDS: DEXAMETHASONE 2 MG TABLET 6 MG PO (08:22)
[2021-09-25] MEDS: LOSARTAN POTASSIUM 25 MG TABLET PO (08:23)
[2021-09-25] MEDS: CITALOPRAM HYDROBROMIDE 20 MG TABLET PO (08:23)
[2021-09-25] MEDS: ASPIRIN 81 MG ENTERIC TABLET PO (08:24)
[2021-09-25] MEDS: HYDROXYCHLOROQUINE SULFATE 200 MG TABLET PO (08:24)
[2021-09-25] MEDS: LORATADINE 10 MG TABLET PO (08:24)
--- NOTE | 2021-09-25 10:08 | PM.IMPN ---
Progress Note: A&P Assessment and Plan (1) 2019 novel coronavirus-infected pneumonia (NCIP): Code(s): U07.1 - COVID-19; J12.82 - Pneumonia due to coronavirus disease 2019 Status: Acute Assessment and Plan: Place in COVID19 isolation precautions, cardiac monitoring, and continuous pulse ox Monitor serum electrolytes, CRP, Lactic acid, troponin, CBC, WBC, temperature curve and follow cultures Oxygen via NC; wean as tolerated. Keep spO2 greater than 91% patient is currently on 12L oxygen per NC this am. Discussed worsening status and adding Baricitinib 2mg daily (CKD 3). He was agreeable to stopping Celexa and hydroxycholoroquine to have this medication administered to him. Risks and benefits discussed. Continue to monitor QTc-- Hydroxycholoroquine has a long half life. Pending EKG for 09/25/21 Consider Consulting Pulmonary if the patient has an increased oxygen demand. Patient does not wear oxygen at baseline. When appropriate start CPAP or Vapotherm to maintain oxygen saturation continue Remdesivir and Dexamethasone, continue treatment according to suggested guidelines. Albuterol MDI and mucinex BID PO. (2) Congestive heart failure: Qualifiers: Heart failure chronicity: unspecified Heart failure type: unspecified Qualified Code(s): I50.9 - Heart failure, unspecified Code(s): I50.9 - Heart failure, unspecified Status: Acute Assessment and Plan: Monitor BUN/creatinine, daily weights May consider a repeat echocardiogram pending patient's clinical course. Last echocardiogram obtained with May 16 2020 with an LVEF of 65-70%. Mild left atrial enlargement. Mild mitral annular calcification, mild MR. Mildly sclerotic aortic valve, no stenosis; trivial aortic regurgitation. [id number] tricuspid regurgitation, moderate pulmonary hypertension. Continue home dose Lasix 40 mg (3) Hyponatremia: Code(s): E87.1 - Hypo-osmolality and hyponatremia Status: Acute Assessment and Plan: Patient has had poor oral intake due to nausea for the past week Continue to monitor daily (4) Obesity (BMI 30-39.9): Code(s): E66.9 - Obesity, unspecified Status: Acute (5) Diabetes mellitus: Qualifiers: Diabetes mellitus type: type 2 Diabetes mellitus fci insulin use: unspecified fci insulin use status Diabetes mellitus complication status: with other specified complication Qualified Code(s): E11.69 - Type 2 diabetes mellitus with other specified complication Code(s): E11.9 - Type 2 diabetes mellitus without complications Status: Acute Assessment and Plan: Accu-checks qAc and HS and Hold oral hypoglycemics HgbA1c 7% Patient has insulin pump on, managed appropriately by the patient (6) Essential (primary) hypertension: Code(s): I10 - Essential (primary) hypertension Status: Acute Assessment and Plan: Resume antihypertensives (7) CKD stage 3 due to type 2 diabetes mellitus: Code(s): E11.22 - Type 2 diabetes mellitus with diabetic chronic kidney disease; N18.3 - Chronic kidney disease, stage 3 (moderate) Status: Acute Assessment and Plan: Monitor renal function while on remdesivir (8) Acute respiratory failure with hypoxia: Code(s): J96.01 - Acute respiratory failure with hypoxia Status: Acute Assessment and Plan: 09/10 above Subjective Date/time seen: 09/25/21 10:08 Patient sitting at the side of the bed this morning. In no acute distress. However you had 12 L of oxygen per nasal cannula on. Patient reports that he feels significantly better. Pending EKG this morning to monitor QTC. Patient is on multiple medications. Stopped his Celexa and hydroxychloroquine this morning in order to start baricitinib. I discussed the risks and benefits with the patient in depth. Patient was agreeable to starting the medication. Patient denied any chest pain, shortness of pedro
[2021-09-25] MEDS: REMDESIVIR 100 MG/NS 250 ML 100 MG/250 ML BAG 250 MG IVPB (10:22)
[2021-09-25] MEDS: BARICITINIB 2 MG TABLET PO (10:26)
[2021-09-25] MEDS: MELATONIN 3 MG TABLET PO (21:33)
[2021-09-25] MEDS: guaiFENesin 12 HR 600 MG TABCR PO (21:33)
[2021-09-26] VITALS (28 sets, daily range): BP systolic 123–141; BP diastolic 50–65; PULSE 61–84; RESP 20–30; TEMP 35.7–37.1; O2SAT 84–95
--- NOTE | 2021-09-26 | ECHO_ITS ---
Patient Info Name: Kurtis Allred Age: 86 years : 1935 Gender: Male Ht: 71 in Wt: 235 lbs BSA: 2.34 m2 HR: 77 bpm BP: 141 / 50 mmHg Heart Rhythm: Sinus Rhythm Technical Quality: Fair Exam Date: 09/26/2021 12:14 PM Exam Location: [facility] Card Pulmonary Patient Status: Inpatient Admit Date: 09/24/2021 Staff Ordering Physician: Carmina Mora APRN Driver License Reviewing Officer: Elayne Summers RDCS Attending Provider: Clifford Velasco MD Referring Physician: Morgan BELLO; Exam Type: CA echo doppler color flow Study Info Indications - sob Complete two-dimensional, color flow and Doppler transthoracic echocardiogram is performed. Summary 1. Complete two-dimensional, color flow and Doppler transthoracic echocardiogram is performed. 2. Left ventricular chamber dimension is normal. 3. Left ventricular systolic function is normal, estimated at 60-65%. 4. There is no increased left ventricular wall thickness. 5. The left ventricular diastolic function is normal. 6. There is no aortic valve stenosis. 7. There is trace mitral valve regurgitation. Left Ventricle Left ventricular chamber dimension is normal. Left ventricular systolic function is normal, estimated at 60-65%. There is no increased left ventricular wall thickness. The left ventricular diastolic function is normal. Right Ventricle Right ventricular chamber dimension is normal. Right ventricular systolic function is normal. Left Atria Left atrial chamber dimension is mildly enlarged. Right Atria Right atrial chamber dimension is normal. Aortic Valve The aortic valve is not well visualized. There is no aortic valve stenosis. There is no aortic valve regurgitation. There is mild aortic valve calcification. Pulmonic Valve The pulmonic valve is not well visualized. Mitral Valve The mitral valve has normal leaflets. There is trace mitral valve regurgitation. The mitral valve annulus is mildly calcified. Tricuspid Valve The tricuspid valve leaflets are normal. There is trace tricuspid valve regurgitation. No pulmonary hypertension, estimated pulmonary arterial systolic pressure is 20 mmHg. Pericardium/Pleural The pericardium appears normal. There is no pericardial effusion. Inferior Vena Cava Normal inferior vena cava with >50% collapse upon inspiration consistent with normal right atrial pressure, 5 mmHg. Aorta The aortic root size at the sinus of Valsalva is normal. There is mild aortic atherosclerosis. Left Ventricular Outflow Tract Name Value Normal LVOT 2D LVOT Diameter 2.1 cm LVOT Doppler LVOT Peak Gradient 4 mmHg LVOT Mean Gradient 2 mmHg LVOT VTI 22 cm LVOT VTI/AV VTI Ratio 0.7 LVOT Stroke Volume 75 ml LVOT CO 5.1 l/min LVOT CI 2.2 l/min/m2 Pulmonic Valve Name Value Normal -
[2021-09-26] MEDS: ALBUTEROL SULFATE (*SP) INHALER 2 PUFF INHALATION ×4 (02:05→20:31)
[2021-09-26 03:59] LABS: PCO2 ABG 42.5 mmHg (35.0-45.0); pH ABG 7.458 (7.350-7.450)
[2021-09-26 04:00] LABS: HCO3 ABG 29.4 mEq/l (22.0-26.0); PO2 ABG 47.8 mmHg (80.0-100.0)
[2021-09-26 04:01] LABS: Oxygen Saturation ABG 85.6 % (95.0-100.0)
[2021-09-26 04:02] LABS: Alveolar/Arterial O2 Gradient 622.7 mmHg; Oxygen Content ABG 14.7 %vol (16.0-22.0); Total Hemoglobin 12.9 g/dL (12.0-18.0)
[2021-09-26 04:03] LABS: Oxyhemoglobin 80.9 % THb (90.0-100.0)
[2021-09-26 04:04] LABS: Carboxyhemoglobin 0.3 % THb (0-2.0); Methemoglobin ABG 0.1 %THb (0-1.5); Reduced Hemoglobin 18.7 %THb (0-5.0)
[2021-09-26 04:05] LABS: Fractional Inspired Oxygen 100 %; Modified Allen's Test Pass; PO2 FiO2 Ratio Arterial Blood 0.48 %; Site Drawn RIGHT RADIAL
[2021-09-26 04:06] LABS: Device HIGH FLOW NASAL CANN
--- NOTE | 2021-09-26 05:00 | ECG_ITS ---
Measurements Intervals [place] Rate: 79 P: 88 OK: 203 QRS: -38 QRSD: 97 T: 61 QT: 383 QTc: 440 Interpretive Statements SINUS RHYTHM LEFT AXIS DEVIATION BORDERLINE AV CONDUCTION DELAY BASELINE ARTIFACT- I, III, AVR, AVL, AVF, V1-V6 BORDERLINE ECG Electronically Signed On 09-26-2021 12:05:33 CASUALTY UNDERWRITER by Rich Contreras D.O.
[2021-09-26 06:09] LABS: Alveolar/Arterial O2 Gradient 618.2 mmHg; Fractional Inspired Oxygen 100 %; HCO3 ABG 27.3 mEq/l (22.0-26.0); Oxygen Content ABG 15.4 %vol (16.0-22.0); Oxygen Saturation ABG 89.6 % (95.0-100.0); PCO2 ABG 40.4 mmHg (35.0-45.0); PO2 ABG 54.4 mmHg (80.0-100.0); PO2 FiO2 Ratio Arterial Blood 0.54 %; Total Hemoglobin 12.8 g/dL (12.0-18.0); pH ABG 7.447 (7.350-7.450)
[2021-09-26 06:15] LABS: Device NON-INVASIVE VENT; Oxyhemoglobin 85.8 % THb (90.0-100.0); Site Drawn RIGHT BRACHIAL
[2021-09-26 06:16] LABS: Non-Invasive Expiratory Pressure 6 CMH2O; Non-Invasive Inspiratory Pressure 14 CMH2O; Non-Invasive Vent Rate 14 /MIN
[2021-09-26] MEDS: LEVOTHYROXINE SODIUM 125 MCG TABLET PO (06:29)
[2021-09-26 07:38] LABS: Hematocrit 35.4 % (42.0-52.0); Hemoglobin 12.1 g/dL (14.0-18.0); Immature Granulocyte Absolute 0.02 K/mm3 (0.00-0.031); Immature Granulocyte Percent A 0.4 % (0-0.5); Lymphocytes Absolute Auto 0.46 K/mm3 (0.9-3.2); Lymphocytes Percent Auto 8.9 % (18.3-44.2); Mean Corpuscular HGB Conc 34.2 g/dl (32-36); Mean Corpuscular Hemoglobin 32.5 pg (26-34); Mean Corpuscular Volume 95.2 fl (80-100); Mean Platelet Volume 10.5 fl (7.4-10.4); Monocytes Absolute Auto 0.9 K/mm3 (0.1-0.6); Neutrophils Absolute Auto 3.8 K/mm3 (1.3-6.7); Neutrophils Percent Auto 73.7 % (45.5-73.1); Platelet Count Result 229 k/mm3 (150-375); Red Blood Count 3.72 M/mm3 (4.6-6.20); Red Cell Distribution Width 12.2 % (11.5-14.5); White Blood Count 5.2 K/mm3 (4.5-10.0)
[2021-09-26 07:47] LABS: Prothrombin Time 12.6 Seconds (11.1-14.7)
[2021-09-26 07:50] LABS: D Dimer 1.15 ug/mL (<0.48)
[2021-09-26 08:43] LABS: Alanine Aminotransferase 43 U/L (4-50); Alkaline Phosphatase 54 U/L (38-126); Anion Gap 6 mmol/L (8-16); Aspartate Amino Transferase 111 U/L (17-59); Bilirubin,Total 0.5 mg/dL (0.2-1.3); Blood Urea Nitrogen 60 mg/dL (9-20); CRP 7.2 mg/dL (<1.0); Calcium 7.6 mg/dL (8.4-10.2); Carbon Dioxide 30 mmol/L (22-30); Chloride 93 mmol/L (98-107); Creatine Kinase 610 U/L (55-170); Estimated CRCL calculation 26 ml/min; Estimated Glomerular Filt Rate 26; Glucose 171 mg/dL (65-110); Lactate Dehydrogenase 1260 U/L (313-618); Magnesium 2.2 mg/dL (1.6-2.3); Potassium 4.2 mmol/L (3.4-5.0); Sodium 129 mmol/L (137-145)
[2021-09-26] MEDS: ASPIRIN 81 MG ENTERIC TABLET PO (10:10)
[2021-09-26] MEDS: ENOXAPARIN 40 MG/0.4 ML SYRINGE SUB-Q (10:10)
[2021-09-26] MEDS: ATORVASTATIN 40 MG TABLET PO (10:10)
[2021-09-26] MEDS: LOSARTAN POTASSIUM 25 MG TABLET PO (10:10)
[2021-09-26] MEDS: DEXAMETHASONE 2 MG TABLET 6 MG PO (10:10)
[2021-09-26] MEDS: amLODIPine BESYLATE 5 MG TABLET 10 MG PO (10:11)
[2021-09-26] MEDS: guaiFENesin 12 HR 600 MG TABCR PO ×2 (10:11→21:27)
[2021-09-26] MEDS: LORATADINE 10 MG TABLET PO (10:11)
[2021-09-26] MEDS: METOPROLOL TARTRATE 25 MG TABLET PO ×2 (10:11→21:26)
[2021-09-26] MEDS: BARICITINIB 1 MG TABLET PO (10:12)
[2021-09-26] MEDS: FUROSEMIDE 40 MG TABLET PO (10:12)
--- NOTE | 2021-09-26 10:54 | WPDCNINT ---
Assessment and Plan Assessment and plan (1) Acute respiratory failure with hypoxia: Code(s): J96.01 - Acute respiratory failure with hypoxia Status: Acute Assessment and Plan: Multifactorial Acute on chronic Respiratory failure secondary to COVID 19 pneumonia, congestive heart failure, CKD and baseline restrictive lung disease His presentation and chest x-ray does not appear classic for COVID-19 pneumonia but may have a component Patient currently on BiPAP 14/6 100% FiO2 and saturating 97% which was early this morning No respiratory distress at this time Continue an NIPPV at this time. Settings changed to 15/[address] scan to further evaluate his mixed respiratory failure Check procalcitonin level Patient does not need to be intubated this time but may need in future if worsens or become BiPAP dependent Echo, Chest x-ray and ABG reviewed Patient is on bronchodilators Discussed with pulmonary and internal medicine Patient will remain on step-down unit at this time. I have requested primary provider to contact me in case patient deteriorates or develops new symptoms (2) 2019 novel coronavirus-infected pneumonia (NCIP): Code(s): U07.1 - COVID-19; J12.82 - Pneumonia due to coronavirus disease 2019 Status: Acute Assessment and Plan: Patient had COVID-19 pneumonia last year and recovered. He never got vaccinated after that Tested positive again on presentation in ER Patient is on dexamethasone and baricitinib dosed renally Remdesivir was discontinued due to low renal function Hydroxychloroquine was also discontinued on admission (3) Restrictive lung disease: Code(s): J98.4 - Other disorders of lung Status: Acute (4) Congestive heart failure: Qualifiers: Heart failure chronicity: unspecified Heart failure type: unspecified Qualified Code(s): I50.9 - Heart failure, unspecified Code(s): I50.9 - Heart failure, unspecified Status: Acute (5) CKD stage 3 due to type 2 diabetes mellitus: Code(s): E11.22 - Type 2 diabetes mellitus with diabetic chronic kidney disease; N18.3 - Chronic kidney disease, stage 3 (moderate) Status: Acute Additional Plan Total Critical Care Time - 30 minutes Due to a high probability of clinically significant, life threatening deterioration, the patient required my highest level of preparedness to intervene emergently and I personally spent this critical care time directly and personally managing the patient. This critical care time included obtaining a history; examining the patient; pulse oximetry; ordering and review of studies; arranging urgent treatment with development of a management plan; evaluation of patient's response to treatment; frequent reassessment; and discussions with other providers. It was exclusive of separately billable procedures and treating other patients and teaching time. Please see Assessment and Plan section and the rest of the note for further information on patient assessment and treatment Meat Molder Consult Note Consult date: 09/26/21 HPI: Kurtis Allred is a 86 year old male with obesity, DM on insulin pump, CHF chronic kidney disease and HTN who presented on 09/24 with chief complaint of shortness of breath. Patient was found to be positive for COVID and was diagnosed with COVID PNA. Per patient, symptoms began last Wednesday (09/19) and were mostly weakness tiredness and runny nose. He states that he did not feel short of breath or had any cough. On presentation in ED he did report shortness of breath and cough. His WBC 4100, DDimer 1.4, LDH 1036 and CRP 18.5. ABG 7.46/43/56 on 3L. Influenza negative and COVID positive. He was started on Remdesivir and Dexamethasone. 09/25 Baricitinib was added overnight patient's hypoxia worsened and he was initially on Airvo and then placed on BiPAP down to the morning. I was asked to evaluate patient for intubation and mechanical ventilation. When I went to
--- NOTE | 2021-09-26 10:57 | PM.CNPUL ---
Assessment and Plan Assessment and plan (1) Acute respiratory failure with hypoxia: Code(s): J96.01 - Acute respiratory failure with hypoxia Status: Acute Assessment and Plan: 86-year-old man with a history of left ventricular diastolic dysfunction, elevated pulmonary artery systolic pressure on previous echocardiogram, diabetes mellitus, obstructive sleep apnea presented with increasing shortness of breath bilateral pulmonary infiltrates and associated hypoxemia. Currently the patient is BiPAP dependent. Chest imaging studies show bilateral infiltrates in a butterfly pattern which could indicate congestive heart failure more so than COVID-19 pneumonia. Will proceed with chest CT without contrast. Will continue with remdesivir and dexamethasone for now. In light of acute kidney injury we we will hold baricitinib. (2) 2019 novel coronavirus-infected pneumonia (NCIP): Code(s): U07.1 - COVID-19; J12.82 - Pneumonia due to coronavirus disease 2019 Status: Acute (3) Congestive heart failure: Qualifiers: Heart failure chronicity: unspecified Heart failure type: unspecified Qualified Code(s): I50.9 - Heart failure, unspecified Code(s): I50.9 - Heart failure, unspecified Status: Acute (4) ROCKY (obstructive sleep apnea): Code(s): G47.33 - Obstructive sleep apnea (adult) (pediatric) Status: Acute (5) Pulmonary hypertension: Code(s): I27.20 - Pulmonary hypertension, unspecified Status: Acute (6) Obesity (BMI 30-39.9): Code(s): E66.9 - Obesity, unspecified Status: Acute (7) CKD stage 3 due to type 2 diabetes mellitus: Code(s): E11.22 - Type 2 diabetes mellitus with diabetic chronic kidney disease; N18.3 - Chronic kidney disease, stage 3 (moderate) Status: Acute History of Present Illness History of Present Illness Consult date: 09/26/21 Chief complaint: covid pneumonia,acute hypoxic respiratory failure Narrative: The patient presented with 3 day history of increasing shortness of breath. He has got history of diabetes mellitus, congestive heart failure hypertension and previous history of COVID 19 infection. The patient was in his usual state of health until approximately 3 days prior to this admission when he started having upper respiratory system symptoms with congested nose postnasal drip cough nausea. Subsequently he started to have shortness of breath. He denied having hemoptysis chest pain palpitations fever or chills. In the emergency room he was found to have diffuse bilateral infiltrates worse on right as well as hypoxemia on supplemental oxygen. He was tested positive for COVID-19 infection. Patient has been treated with remdesivir dexamethasone and since yesterday with body sitting up. His shortness of breath and hypoxemia have worsened and the patient was placed on BiPAP support. Currently he is on 15/8 BiPAP and 100% FiO2. Patient is fully alert and cooperative. Patient has not been vaccinated for COVID 19 infection. patient has history of obstructive sleep apnea on CPAP, history of diastolic left ventricular heart failure with previous echocardiogram 2 years ago showing elevated pulmonary artery systolic pressure at around 57 mmHg. Review of Systems Review of Systems: All systems reviewed & are unremarkable except as noted in HPI and below (HPI) [facility] Past Medical History Medical History Acute dehydration Acute hyperglycemia Acute hyperkalemia Acute on chronic diastolic CHF (congestive heart failure) Diast CHF dx'd 2018 FERMIN (acute kidney injury) Albuminuria Arthritis, lumbar spine ASHD (arteriosclerotic heart disease) Bilateral hand pain Bilateral hand pain BMI 34.0-34.9,adult Chronic obstructive pulmonary disease CKD stage 3 due to type 2 diabetes mellitus Counseling on health promotion and disease prevention Depression Diabetes mellitus Diastolic heart fail
--- NOTE | 2021-09-26 11:31 | PM.IMPN ---
Progress Note: A&P Assessment and Plan (1) 2019 novel coronavirus-infected pneumonia (NCIP): Code(s): U07.1 - COVID-19; J12.82 - Pneumonia due to coronavirus disease 2019 Status: Acute Assessment and Plan: Place in COVID19 isolation precautions, cardiac monitoring, and continuous pulse ox Monitor serum electrolytes, CRP, LDH, CBC, Oxygen via NC; wean as tolerated. Keep spO2 greater than 91% patient is currently on bipap this am. hold Baricitinib 2mg daily (CKD 3). He was agreeable to stopping Celexa and hydroxycholoroquine to have this medication administered to him. Risks and benefits discussed. Continue to monitor QTc-- Hydroxycholoroquine has a long half life. Consulted Pulmonary Dr. Padilla due to the patients increased oxygen demand. Consult the senior support engineer to evaluate the patient due to the patient's significant decline Obtaining a CT of the chest for further evaluation Insert PICC line Hold remdesivir due to worsening renal function Dexamethasone, continue treatment according to suggested guidelines. Albuterol MDI and mucinex BID PO. (2) Congestive heart failure: Qualifiers: Heart failure chronicity: unspecified Heart failure type: unspecified Qualified Code(s): I50.9 - Heart failure, unspecified Code(s): I50.9 - Heart failure, unspecified Status: Acute Assessment and Plan: Monitor BUN/creatinine, daily weights Obtain echocardiogram Last echocardiogram obtained with May 16 2020 with an LVEF of 65-70%. Mild left atrial enlargement. Mild mitral annular calcification, mild MR. Mildly sclerotic aortic valve, no stenosis; trivial aortic regurgitation. [id number] tricuspid regurgitation, moderate pulmonary hypertension. Continue Lasix 40 mg IVP, monitor urine output (3) Hyponatremia: Code(s): E87.1 - Hypo-osmolality and hyponatremia Status: Acute Assessment and Plan: Patient has had poor oral intake due to nausea for the past week Continue to monitor daily (4) Obesity (BMI 30-39.9): Code(s): E66.9 - Obesity, unspecified Status: Acute (5) Diabetes mellitus: Qualifiers: Diabetes mellitus complication status: with other specified complication Diabetes mellitus mcc insulin use: unspecified medical staff physician insulin use status Diabetes mellitus type: type 2 Qualified Code(s): E11.69 - Type 2 diabetes mellitus with other specified complication Code(s): E11.9 - Type 2 diabetes mellitus without complications Status: Acute Assessment and Plan: Accu-checks qAc and HS and Hold oral hypoglycemics HgbA1c 7% Patient has insulin pump on, managed appropriately by the patient (6) Essential (primary) hypertension: Code(s): I10 - Essential (primary) hypertension Status: Acute Assessment and Plan: Resume antihypertensives (7) CKD stage 3 due to type 2 diabetes mellitus: Code(s): E11.22 - Type 2 diabetes mellitus with diabetic chronic kidney disease; N18.3 - Chronic kidney disease, stage 3 (moderate) Status: Acute Assessment and Plan: Monitor renal function, worsened Stop remdesivir (8) Acute respiratory failure with hypoxia: Code(s): J96.01 - Acute respiratory failure with hypoxia Status: Acute Assessment and Plan: 09/10 above Subjective Date/time seen: 09/26/21 11:31 Patient was evaluated this morning at bedside. BiPAP was in place. Patient was limited in discussion due to the BiPAP. He denied any acute respiratory distress. He did report during the night he had low oxygen levels and began to see and do things, patient believes he is hallucinating. This reportedly took place when he was hypoxic. The patient has become progressively worse, repeat echocardiogram, stop remdesivir and baricitinib due to renal function, consult Pulmonary and senior support engineer for further evaluation. Suggested to obtain a CT of the chest, continue BiPAP, change setting
[2021-09-26 12:09] LABS: Procalcitonin 0.3 ng/mL
[2021-09-26] MEDS: LIDOCAINE HCL 1% PF INJ 5 ML VIAL INFILTRATE (13:00)
[2021-09-26 13:51] LABS: Glucose Point of Care 209 mg/dl (65-105)
[2021-09-26] MEDS: FUROSEMIDE INJ 40 MG/4 ML VIAL IV PUSH (16:22)
[2021-09-26] MEDS: CENTRAL LINE FLUSH 10 ML IV PUSH ×2 (16:22→21:27)
[2021-09-26 16:54] LABS: Glucose Point of Care 169 mg/dl (65-105)
[2021-09-26] MEDS: MELATONIN 3 MG TABLET PO (21:27)
[2021-09-27] VITALS (19 sets, daily range): BP systolic 127–146; BP diastolic 54–87; PULSE 63–97; RESP 22–35; TEMP 36.3–37; O2SAT 85–93
--- NOTE | 2021-09-27 00:49 | PC.NURSE ---
08/27/21 0010 Pt removed bipap to void and eat applesauce. Pulse oximeter had fallen off; pt was 62% when replaced. Need to keep pulse ox and bipap mask on discussed. Pt had no s/s of distress. Insulin pump also discussed. No contract for patient use found in chart. Pt states he receives no basal rate. He only receives insulin when he tells the pump to deliver it and it depends on his blood sugar-usually at mealtimes. Pt agrees to contract agreement and to notify nurse of blood sugar and amount administered when he doses insulin.
[2021-09-27] MEDS: ALBUTEROL SULFATE (*SP) INHALER 2 PUFF INHALATION (02:44)
[2021-09-27 04:36] LABS: Alveolar/Arterial O2 Gradient 667.1 mmHg; Base Excess ABG 4.3 mEq/l (+/-2.0); Fractional Inspired Oxygen 100 %; HCO3 ABG 27.5 mEq/l (22.0-26.0); Oxygen Content ABG 17.5 %vol (16.0-22.0); Oxygen Saturation ABG 96.8 % (95.0-100.0); Oxyhemoglobin 94.1 % THb (90.0-100.0); PCO2 ABG 36.6 mmHg (35.0-45.0); PO2 ABG 81.3 mmHg (80.0-100.0); PO2 FiO2 Ratio Arterial Blood 0.81 %; Site Drawn LEFT RADIAL; Total Hemoglobin 13.2 g/dL (12.0-18.0); pH ABG 7.494 (7.350-7.450)
[2021-09-27 04:37] LABS: Device NON-INVASIVE VENT; Modified Allen's Test Pass; Non-Invasive Vent Rate 14 /MIN
[2021-09-27 04:38] LABS: Non-Invasive Expiratory Pressure 8 CMH2O; Non-Invasive Inspiratory Pressure 15 CMH2O
[2021-09-27] MEDS: CENTRAL LINE FLUSH 10 ML IV PUSH ×3 (06:34→22:13)
[2021-09-27] MEDS: LEVOTHYROXINE SODIUM 125 MCG TABLET PO (06:34)
[2021-09-27 06:55] LABS: Hematocrit 35.9 % (42.0-52.0); Hemoglobin 12.2 g/dL (14.0-18.0); Immature Granulocyte Absolute 0.04 K/mm3 (0.00-0.031); Immature Granulocyte Percent A 0.6 % (0-0.5); Lymphocytes Absolute Auto 0.48 K/mm3 (0.9-3.2); Lymphocytes Percent Auto 7.1 % (18.3-44.2); Mean Corpuscular Hemoglobin 32.9 pg (26-34); Mean Corpuscular Volume 96.8 fl (80-100); Mean Platelet Volume 10.4 fl (7.4-10.4); Monocytes Absolute Auto 1.2 K/mm3 (0.1-0.6); Monocytes Percent Auto 18.1 % (2.6-8.5); Neutrophils Percent Auto 74.2 % (45.5-73.1); Platelet Count Result 271 k/mm3 (150-375); Red Blood Count 3.71 M/mm3 (4.6-6.20); Red Cell Distribution Width 12.2 % (11.5-14.5); White Blood Count 6.8 K/mm3 (4.5-10.0)
[2021-09-27 07:11] LABS: D Dimer 0.95 ug/mL (<0.48)
[2021-09-27 07:14] LABS: Alanine Aminotransferase 47 U/L (4-50); Albumin Level 3.1 g/dL (3.5-5.1); Alkaline Phosphatase 57 U/L (38-126); Anion Gap 6 mmol/L (8-16); Aspartate Amino Transferase 109 U/L (17-59); Bilirubin,Total 0.6 mg/dL (0.2-1.3); Blood Urea Nitrogen 71 mg/dL (9-20); CRP 5.5 mg/dL (<1.0); Calcium 7.6 mg/dL (8.4-10.2); Carbon Dioxide 29 mmol/L (22-30); Chloride 94 mmol/L (98-107); Estimated CRCL calculation 28 ml/min; Estimated Glomerular Filt Rate 29; Glucose 223 mg/dL (65-110); Lactate Dehydrogenase 1490 U/L (313-618); Potassium 4.5 mmol/L (3.4-5.0); Sodium 129 mmol/L (137-145)
[2021-09-27 07:15] LABS: INR 1.1; Prothrombin Time 13.3 Seconds (11.1-14.7)
[2021-09-27 07:17] LABS: NT Pro B Type Natriuretic Pept 2260 pg/mL (5-100)
[2021-09-27 08:31] LABS: Glucose Point of Care 229 mg/dl (65-105)
[2021-09-27] MEDS: ENOXAPARIN 40 MG/0.4 ML SYRINGE SUB-Q (08:50)
[2021-09-27] MEDS: DEXAMETHASONE 2 MG TABLET 6 MG PO (08:51)
[2021-09-27] MEDS: amLODIPine BESYLATE 5 MG TABLET 10 MG PO (08:51)
[2021-09-27] MEDS: ASPIRIN 81 MG ENTERIC TABLET PO (08:52)
[2021-09-27] MEDS: guaiFENesin 12 HR 600 MG TABCR PO ×2 (08:52→22:13)
[2021-09-27] MEDS: ATORVASTATIN 40 MG TABLET PO (08:52)
[2021-09-27] MEDS: LORATADINE 10 MG TABLET PO (08:52)
[2021-09-27] MEDS: METOPROLOL TARTRATE 25 MG TABLET PO ×2 (08:53→22:13)
[2021-09-27] MEDS: FUROSEMIDE INJ 40 MG/4 ML VIAL IV PUSH (09:00)
[2021-09-27] MEDS: FUROSEMIDE INJ 40 MG/4 ML VIAL (09:30)
--- NOTE | 2021-09-27 11:59 | PM.IMPN ---
Progress Note: A&P Assessment and Plan (1) 2019 novel coronavirus-infected pneumonia (NCIP): Code(s): U07.1 - COVID-19; J12.82 - Pneumonia due to coronavirus disease 2019 Status: Acute Assessment and Plan: Place in COVID19 isolation precautions, cardiac monitoring, and continuous pulse ox Monitor serum electrolytes, CRP, LDH, CBC, Oxygen via NC; wean as tolerated. Keep spO2 greater than 91% patient is currently on bipap this am. hold Baricitinib 2mg daily (CKD 3). He was agreeable to stopping Celexa and hydroxycholoroquine to have this medication administered to him. Risks and benefits discussed. Continue to monitor QTc-- Hydroxycholoroquine has a long half life. Consulted Pulmonary Dr. Padilla due to the patients increased oxygen demand. Consult the frame stripper to evaluate the patient due to the patient's significant decline Obtaining a CT of the chest for further evaluation PICC line inserted Hold remdesivir due to worsening renal function Dexamethasone, continue treatment according to suggested guidelines. Albuterol MDI and mucinex BID PO. (2) Congestive heart failure: Qualifiers: Heart failure chronicity: unspecified Heart failure type: unspecified Qualified Code(s): I50.9 - Heart failure, unspecified Code(s): I50.9 - Heart failure, unspecified Status: Acute Assessment and Plan: Monitor BUN/creatinine, daily weights Echocardiogram performed on 09/26 2021 revealed LVEF 60-65%. Previous echocardiogram obtained with May 16 2020 with an LVEF of 65-70%. Mild left atrial enlargement. Mild mitral annular calcification, mild MR. Mildly sclerotic aortic valve, no stenosis; trivial aortic regurgitation. [id number] tricuspid regurgitation, moderate pulmonary hypertension. Continue Lasix 40 mg IVP, monitor urine output (3) Hyponatremia: Code(s): E87.1 - Hypo-osmolality and hyponatremia Status: Acute Assessment and Plan: Patient has had poor oral intake due to nausea for the past week Continue to monitor daily (4) Obesity (BMI 30-39.9): Code(s): E66.9 - Obesity, unspecified Status: Acute (5) Diabetes mellitus: Qualifiers: Diabetes mellitus type: type 2 Diabetes mellitus long term care phlebotomist insulin use: unspecified long term care phlebotomist insulin use status Diabetes mellitus complication status: with other specified complication Qualified Code(s): E11.69 - Type 2 diabetes mellitus with other specified complication Code(s): E11.9 - Type 2 diabetes mellitus without complications Status: Acute Assessment and Plan: Accu-checks qAc and HS and Hold oral hypoglycemics HgbA1c 7% Patient has insulin pump on, managed appropriately by the patient (6) Essential (primary) hypertension: Code(s): I10 - Essential (primary) hypertension Status: Acute Assessment and Plan: Resume antihypertensives (7) CKD stage 3 due to type 2 diabetes mellitus: Code(s): E11.22 - Type 2 diabetes mellitus with diabetic chronic kidney disease; N18.3 - Chronic kidney disease, stage 3 (moderate) Status: Acute Assessment and Plan: Monitor renal function, worsened Stop remdesivir (8) Acute respiratory failure with hypoxia: Code(s): J96.01 - Acute respiratory failure with hypoxia Status: Acute Assessment and Plan: 09/10 above Subjective Date/time seen: 09/27/21 11:59 Patient remains alert and oriented x4. He was sitting up in bed with BiPAP on 23/03 with 100% FiO2. Patient did not appear to be in acute distress at this time. Discussed transfer Factor supplement that his significant other would like him to have while in the hospital. Patient reported he does not require this medication and then reported they wanted money. I asked him to have a conversation with his about this supplement. The patient's renal function continues to be borderline. He is unable to receive remdesivir or the LIDIA inhi
[2021-09-27 12:56] LABS: Glucose Point of Care 122 mg/dl (65-105)
--- NOTE | 2021-09-27 20:32 | PCRCNOTE ---
Unable to administer albuterol inhaler scheduled for 20:00 on 09/27/21. Pt on continuous BiPAP and desats quickly when removed.
--- NOTE | 2021-09-27 20:34 | PC.NURSE ---
Patient's blood glucose per his insulin pump is 187. No sliding scale coverage ordered.
--- NOTE | 2021-09-27 20:42 | PM.PNPUL ---
Progress Note: A&P Assessment and Plan (1) Acute respiratory failure with hypoxia: Code(s): J96.01 - Acute respiratory failure with hypoxia Status: Acute Assessment and Plan: 86-year-old man with a history of left ventricular diastolic dysfunction, elevated pulmonary artery systolic pressure on previous echocardiogram, diabetes mellitus, obstructive sleep apnea presented with increasing shortness of breath bilateral pulmonary infiltrates and associated hypoxemia. Currently the patient is BiPAP dependent, 15/8 with FiO2 1.0. Chest imaging studies show bilateral infiltrates in a butterfly pattern which could indicate congestive heart failure more so than COVID-19 pneumonia. Will proceed with chest CT without contrast. Continue dexamethasone. With acute kidney injury, baricitinib and remdesivir have been stopped. (2) 2019 novel coronavirus-infected pneumonia (NCIP): Code(s): U07.1 - COVID-19; J12.82 - Pneumonia due to coronavirus disease 2018 Status: Acute Assessment and Plan: see above (3) Congestive heart failure: Qualifiers: Heart failure chronicity: unspecified Heart failure type: unspecified Qualified Code(s): I50.9 - Heart failure, unspecified Code(s): I50.9 - Heart failure, unspecified Status: Acute Assessment and Plan: Echo 09/26/21 Complete two-dimensional, color flow and Doppler transthoracic echocardiogram is performed. 2. Left ventricular chamber dimension is normal. 3. Left ventricular systolic function is normal, estimated at 60-65%. 4. There is no increased left ventricular wall thickness. 5. The left ventricular diastolic function is normal. 6. There is no aortic valve stenosis. 7. There is trace mitral valve regurgitation. (4) ROCKY (obstructive sleep apnea): Code(s): G47.33 - Obstructive sleep apnea (adult) (pediatric) Status: Acute Assessment and Plan: Using BiPAP as an inpatient 23/03 with 100% O2 (5) Pulmonary hypertension: Code(s): I27.20 - Pulmonary hypertension, unspecified Status: Acute Assessment and Plan: He has documented pulmonary hypertension, however on the recent echo the RVSP was not elevated. This may be due to technique. Subjective Date/time seen: 09/27/21 20:42 Exam Narrative: GENERAL APPEARANCE: Well developed, well nourished, alert and cooperative, and appears to be in moderate respiratory distress while on BiPAP support SKIN: Inspection of the skin reveals no rashes, ulcerations or petechiae. HEENT: Sclerae anicteric and conjunctivae pink and moist. Extraocular movements were intact and pupils were equal, round. NECK: Supple. There was no thyroid enlargement, and no tenderness, or masses were felt. LUNGS: crackles posteriorly worse on right CARDIAC: There was a regular rate and rhythm without any murmurs, gallops, rubs. ABDOMEN: Soft and nontender with normal bowel sounds. LYMPH NODES: No lymphadenopathy was appreciated in the neck.. EXTREMITIES: No cyanosis, clubbing or edema. NEUROLOGIC: Alert and oriented x 3. Normal affect. Objective Data Vital Signs Vital Signs: Vital Signs - 24 hr 09/26/21 21:26 09/26/21 22:00 09/27/21 00:00 Temperature 36.7 C Pulse Rate 72 61 63 Respiratory Rate 27 H Blood Pressure 129/65 Pulse Oximetry 87 L 09/27/21 02:00 09/27/21 02:45 09/27/21 04:00 Temperature 36.3 C L Pulse Rate 65 79 74 Respiratory Rate 22 H 23 H Blood Pressure 139/54 L Pulse Oximetry 91 85 L 09/27/21 06:00 09/27/21 08:00 09/27/21 08:43 Temperature 36.8 C Pulse Rate 71 79 88 Respiratory Rate 30 H 28 H Blood P
[2021-09-27] MEDS: MELATONIN 3 MG TABLET PO (22:13)
[2021-09-28] VITALS (23 sets, daily range): BP systolic 119–137; BP diastolic 62–86; PULSE 59–94; RESP 14–28; TEMP 35.9–36.9; O2SAT 90–100
--- NOTE | 2021-09-28 02:36 | PCRCNOTE ---
Unable to administer albuterol inhaler scheduled for 02:00 on 09/28/21. Pt on continuous BiPAP and desats quickly when removed.
[2021-09-28] MEDS: LEVOTHYROXINE SODIUM 125 MCG TABLET PO (06:13)
[2021-09-28] MEDS: CENTRAL LINE FLUSH 10 ML IV PUSH ×3 (06:13→21:14)
[2021-09-28 06:49] LABS: Hematocrit 36.8 % (42.0-52.0); Hemoglobin 12.7 g/dL (14.0-18.0); Immature Granulocyte Absolute 0.05 K/mm3 (0.00-0.031); Immature Granulocyte Percent A 0.5 % (0-0.5); Lymphocytes Absolute Auto 0.43 K/mm3 (0.9-3.2); Lymphocytes Percent Auto 4.3 % (18.3-44.2); Mean Corpuscular HGB Conc 34.5 g/dl (32-36); Mean Corpuscular Hemoglobin 32.5 pg (26-34); Mean Corpuscular Volume 94.1 fl (80-100); Mean Platelet Volume 10.3 fl (7.4-10.4); Monocytes Absolute Auto 1.6 K/mm3 (0.1-0.6); Neutrophils Absolute Auto 7.9 K/mm3 (1.3-6.7); Neutrophils Percent Auto 79.2 % (45.5-73.1); Platelet Count Result 299 k/mm3 (150-375); Red Blood Count 3.91 M/mm3 (4.6-6.20); Red Cell Distribution Width 12.2 % (11.5-14.5)
[2021-09-28 07:31] LABS: INR 1.5; Prothrombin Time 17.8 Seconds (11.1-14.7)
[2021-09-28 07:37] LABS: Alanine Aminotransferase 52 U/L (4-50); Aspartate Amino Transferase 123 U/L (17-59); Estimated CRCL calculation 29 ml/min; Estimated Glomerular Filt Rate 30
[2021-09-28 07:46] LABS: Acanthocytes 1+ (NORMAL); Ovalocytes 1+ (NORMAL); Platelet Estimate Adequate (Adequate)
[2021-09-28 08:09] LABS: Glucose Point of Care 178 mg/dl (65-105)
[2021-09-28] MEDS: ALBUTEROL SULFATE (*SP) INHALER 2 PUFF INHALATION ×2 (08:46→13:38)
--- NOTE | 2021-09-28 09:06 | PM.IMPN ---
Progress Note: A&P Assessment and Plan (1) 2019 novel coronavirus-infected pneumonia (NCIP): Code(s): U07.1 - COVID-19; J12.82 - Pneumonia due to coronavirus disease 2019 Status: Acute Assessment and Plan: Place in COVID19 isolation precautions, cardiac monitoring, and continuous pulse ox Monitor serum electrolytes, CRP, LDH, CBC, Oxygen via NC; wean as tolerated. Keep spO2 greater than 91% patient is currently on bipap this am. hold Baricitinib 2mg daily (CKD 3). Consulted Pulmonary Dr. Padilla due to the patients increased oxygen demand. Consult the backhoe operator to evaluate the patient due to the patient's significant decline PICC line inserted Renal function showed slight improvement, creatinine clearance greater than 35. Discussed risks and benefits of resuming remdesivir with the patient. He was agreeable to having this med administered to him Repeat chest x-ray, ABG-patient reported hallucinations and vomiting during the night. Dexamethasone, continue treatment according to suggested guidelines. Albuterol MDI and mucinex BID PO. (2) Congestive heart failure: Qualifiers: Heart failure chronicity: unspecified Heart failure type: unspecified Qualified Code(s): I50.9 - Heart failure, unspecified Code(s): I50.9 - Heart failure, unspecified Status: Acute Assessment and Plan: Monitor BUN/creatinine, daily weights Echocardiogram performed on 09/26 2021 revealed LVEF 60-65%. Previous echocardiogram obtained with May 16 2020 with an LVEF of 65-70%. Mild left atrial enlargement. Mild mitral annular calcification, mild MR. Mildly sclerotic aortic valve, no stenosis; trivial aortic regurgitation. [id number] tricuspid regurgitation, moderate pulmonary hypertension. Continue Lasix 40 mg IVP, monitor urine output (3) Hyponatremia: Code(s): E87.1 - Hypo-osmolality and hyponatremia Status: Acute Assessment and Plan: Patient has had poor oral intake due to nausea for the past week Continue to monitor daily (4) Obesity (BMI 30-39.9): Code(s): E66.9 - Obesity, unspecified Status: Acute (5) Diabetes mellitus: Qualifiers: Diabetes mellitus type: type 2 Diabetes mellitus ferry terminal agent insulin use: unspecified ferry terminal agent insulin use status Diabetes mellitus complication status: with other specified complication Qualified Code(s): E11.69 - Type 2 diabetes mellitus with other specified complication Code(s): E11.9 - Type 2 diabetes mellitus without complications Status: Acute Assessment and Plan: Accu-checks qAc and HS and Hold oral hypoglycemics HgbA1c 7% Patient has insulin pump on, managed appropriately by the patient (6) Essential (primary) hypertension: Code(s): I10 - Essential (primary) hypertension Status: Acute Assessment and Plan: Resume antihypertensives (7) CKD stage 3 due to type 2 diabetes mellitus: Code(s): E11.22 - Type 2 diabetes mellitus with diabetic chronic kidney disease; N18.3 - Chronic kidney disease, stage 3 (moderate) Status: Acute Assessment and Plan: Monitor renal function, worsened (8) Acute respiratory failure with hypoxia: Code(s): J96.01 - Acute respiratory failure with hypoxia Status: Acute Assessment and Plan: / above Subjective Date/time seen: 09/28/21 09:06 Patient was evaluated this morning at bedside. BiPAP at 15/8, 100% FiO2 setting SpO2 92%. Patient denied any acute respiratory distress. However he did report nausea and mild vomiting during the night. Will repeat chest x-ray this morning to rule out possible aspiration. Discussed the patient's renal function and minimal improvement. The patient agreed to resume remdesivir, risks and benefits were again discussed with the patient. Patient also appeared tremulous during our discussion this morning. Patient also reported hallucinations during the night. Inf
--- NOTE | 2021-09-28 09:13 | ECG_ITS ---
Measurements Intervals [place] Rate: 77 P: 55 IA: 195 QRS: -38 QRSD: 97 T: 47 QT: 390 QTc: 443 Interpretive Statements SINUS RHYTHM ATRIAL AND VENTRICULAR PREMATURE COMPLEXES LEFT AXIS DEVIATION BORDERLINE ST-T WAVE ABNORMALITY- HIGH LATERAL LEADS BASELINE ARTIFACT- I, II, III, AVR, AVL, AVF, V1-V6 BORDERLINE ECG Electronically Signed On 09-28-2021 13:16:10 [employer] by Rich Contreras D.O.
[2021-09-28] MEDS: METOPROLOL TARTRATE 25 MG TABLET PO ×2 (09:30→21:14)
[2021-09-28] MEDS: guaiFENesin 12 HR 600 MG TABCR PO ×2 (09:30→21:14)
[2021-09-28] MEDS: amLODIPine BESYLATE 5 MG TABLET 10 MG PO (09:30)
[2021-09-28] MEDS: ASPIRIN 81 MG ENTERIC TABLET PO (09:30)
[2021-09-28] MEDS: DEXAMETHASONE 2 MG TABLET 6 MG PO (09:30)
[2021-09-28] MEDS: LORATADINE 10 MG TABLET PO (09:30)
[2021-09-28] MEDS: ATORVASTATIN 40 MG TABLET PO (09:30)
[2021-09-28] MEDS: LOSARTAN POTASSIUM 25 MG TABLET PO (09:31)
[2021-09-28] MEDS: FUROSEMIDE INJ 40 MG/4 ML VIAL IV PUSH (09:31)
[2021-09-28] MEDS: ENOXAPARIN 40 MG/0.4 ML SYRINGE SUB-Q (09:31)
[2021-09-28 09:46] LABS: Alveolar/Arterial O2 Gradient 631.8 mmHg; Base Excess ABG 4.9 mEq/l (+/-2.0); Fractional Inspired Oxygen 100 %; PCO2 ABG 41.3 mmHg (35.0-45.0); Total Hemoglobin 13.8 g/dL (12.0-18.0); pH ABG 7.465 (7.350-7.450)
[2021-09-28 09:49] LABS: Device NON-INVASIVE VENT; Modified Allen's Test Pass; Oxyhemoglobin 72.2 % THb (90.0-100.0); PO2 ABG 39.9 mmHg (80.0-100.0); Site Drawn RIGHT RADIAL
[2021-09-28 09:51] LABS: Non-Invasive Expiratory Pressure 8 CMH2O; Non-Invasive Inspiratory Pressure 15 CMH2O; Non-Invasive Vent Rate 14 /MIN
[2021-09-28] MEDS: REMDESIVIR 100 MG/NS 250 ML 100 MG/250 ML BAG 250 MG IVPB (11:36)
[2021-09-28 12:32] LABS: Glucose Point of Care 237 mg/dl (65-105)
[2021-09-28 16:38] LABS: Glucose Point of Care 218 mg/dl (65-105)
--- NOTE | 2021-09-28 18:00 | PM.PNPUL ---
Progress Note: A&P Assessment and Plan (1) Acute respiratory failure with hypoxia: Code(s): J96.01 - Acute respiratory failure with hypoxia Status: Acute Assessment and Plan: 86-year-old man with a history of left ventricular diastolic dysfunction, elevated pulmonary artery systolic pressure on previous echocardiogram, diabetes mellitus, obstructive sleep apnea presented with increasing shortness of breath bilateral pulmonary infiltrates and associated hypoxemia. Currently the patient is on high-flow nasal cannula and has been able to come off of BiPAP. CXR shows overlap of infitlrates and pulmonary edema c/w CHF. COVID-19 pneumonia with cardiac dysfunction. Continue dexamethasone. With acute kidney injury, baricitinib and remdesivir have been stopped. (2) 2019 novel coronavirus-infected pneumonia (NCIP): Code(s): U07.1 - COVID-19; J12.82 - Pneumonia due to coronavirus disease 2018 Status: Acute Assessment and Plan: see above (3) Congestive heart failure: Qualifiers: Heart failure chronicity: unspecified Heart failure type: unspecified Qualified Code(s): I50.9 - Heart failure, unspecified Code(s): I50.9 - Heart failure, unspecified Status: Acute Assessment and Plan: Echo 09/26/21 Complete two-dimensional, color flow and Doppler transthoracic echocardiogram is performed. 2. Left ventricular chamber dimension is normal. 3. Left ventricular systolic function is normal, estimated at 60-65%. 4. There is no increased left ventricular wall thickness. 5. The left ventricular diastolic function is normal. 6. There is no aortic valve stenosis. 7. There is trace mitral valve regurgitation. (4) Pulmonary hypertension: Code(s): I27.20 - Pulmonary hypertension, unspecified Status: Acute Assessment and Plan: He has documented pulmonary hypertension, however on the recent echo the RVSP was not elevated. This may be due to technique. Subjective Date/time seen: 09/28/21 18:00 86 yo man is seen in f/u for COVID pneumonia with worsening respiratory status, required BiPAP but this was able to piece transition to high-flow nasal cannula now on 55 L at 80% F1O2. Continue dexamethasone. IV Lasix, remdesivir and baricitinib stopped. His kidney disease is worsening. Will continue to wean O2 as tolerated. He had a 3 day history of increasing shortness of breath. He has got history of diabetes mellitus, congestive heart failure hypertension and previous history of COVID 19 infection. The patient was in his usual state of health until approximately 3 days prior to this admission when he started having upper respiratory system symptoms with congested nose postnasal drip cough nausea. Subsequently he started to have shortness of breath. He denied having hemoptysis chest pain palpitations fever or chills. In the emergency room he was found to have diffuse bilateral infiltrates worse on right as well as hypoxemia on supplemental oxygen. He was tested positive for COVID-19 infection. Patient has been treated with remdesivir dexamethasone and since yesterday with body sitting up. His shortness of breath and hypoxemia have worsened and the patient was placed on BiPAP support. Currently he is on 15/8 BiPAP and 100% FiO2. Patient is fully alert and cooperative. Patient has not been vaccinated for COVID 19 infection. patient has history of obstructive sleep apnea on CPAP, history of diastolic left ventricular heart failure with previous echocardiogram 2 years ago showing elevated pulmonary artery systolic pressure at around 57 mmHg. Review of Systems Review of Systems: All systems reviewed & are unremark
[2021-09-28 20:39] LABS: Glucose Point of Care 397 mg/dl (65-105)
[2021-09-28] MEDS: MELATONIN 3 MG TABLET PO (21:14)
[2021-09-29] VITALS (24 sets, daily range): BP systolic 127–170; BP diastolic 50–91; PULSE 53–88; RESP 18–29; TEMP 35.9–37.1; O2SAT 91–100
[2021-09-29] MEDS: ALBUTEROL SULFATE (*SP) INHALER 2 PUFF INHALATION ×5 (03:48→21:04)
[2021-09-29] MEDS: LEVOTHYROXINE SODIUM 125 MCG TABLET PO (06:10)
[2021-09-29] MEDS: CENTRAL LINE FLUSH 10 ML IV PUSH ×3 (06:10→21:30)
[2021-09-29 06:31] LABS: Basophils Percent Auto 0.1 % (0.2-1.2); Hematocrit 36.3 % (42.0-52.0); Hemoglobin 12.5 g/dL (14.0-18.0); Immature Granulocyte Absolute 0.11 K/mm3 (0.00-0.031); Immature Granulocyte Percent A 0.9 % (0-0.5); Lymphocytes Absolute Auto 0.36 K/mm3 (0.9-3.2); Mean Corpuscular HGB Conc 34.4 g/dl (32-36); Mean Corpuscular Hemoglobin 32.4 pg (26-34); Mean Platelet Volume 10.5 fl (7.4-10.4); Monocytes Absolute Auto 1.3 K/mm3 (0.1-0.6); Neutrophils Absolute Auto 10.4 K/mm3 (1.3-6.7); Platelet Count Result 297 k/mm3 (150-375); Red Blood Count 3.86 M/mm3 (4.6-6.20); Red Cell Distribution Width 12.3 % (11.5-14.5); White Blood Count 12.2 K/mm3 (4.5-10.0)
[2021-09-29 09:24] LABS: Glucose Point of Care 177 mg/dl (65-105)
[2021-09-29 10:10] LABS: Alanine Aminotransferase 48 U/L (4-50); Aspartate Amino Transferase 77 U/L (17-59); Estimated CRCL calculation 30 ml/min; Estimated Glomerular Filt Rate 32
[2021-09-29 10:30] LABS: INR 1.1
[2021-09-29] MEDS: ATORVASTATIN 40 MG TABLET PO (11:20)
[2021-09-29] MEDS: ASPIRIN 81 MG ENTERIC TABLET PO (11:20)
[2021-09-29] MEDS: guaiFENesin 12 HR 600 MG TABCR PO ×2 (11:20→21:29)
[2021-09-29] MEDS: METOPROLOL TARTRATE 25 MG TABLET PO ×2 (11:20→21:29)
[2021-09-29] MEDS: amLODIPine BESYLATE 5 MG TABLET 10 MG PO (11:21)
[2021-09-29] MEDS: LOSARTAN POTASSIUM 25 MG TABLET PO (11:22)
[2021-09-29] MEDS: DEXAMETHASONE 2 MG TABLET 6 MG PO (11:22)
[2021-09-29] MEDS: LORATADINE 10 MG TABLET PO (11:22)
[2021-09-29] MEDS: ENOXAPARIN 40 MG/0.4 ML SYRINGE SUB-Q (11:23)
[2021-09-29] MEDS: FUROSEMIDE INJ 40 MG/4 ML VIAL IV PUSH (11:24)
[2021-09-29] MEDS: REMDESIVIR 100 MG/NS 250 ML 100 MG/250 ML BAG 250 MG IVPB (11:25)
[2021-09-29] MEDS: WATER FOR IRRIGATION, STERILE 1,000 ML BOTTLE 1000 ML (11:25)
--- NOTE | 2021-09-29 12:14 | PM.PNPUL ---
Progress Note: A&P Assessment and Plan (1) Acute respiratory failure with hypoxia: Code(s): J96.01 - Acute respiratory failure with hypoxia Status: Acute Assessment and Plan: 86-year-old man with history of left ventricular diastolic dysfunction, elevated pulmonary artery systolic pressure on previous echocardiogram, diabetes mellitus, obstructive sleep apnea presented with increasing shortness of breath bilateral pulmonary infiltrates and associated hypoxemia. Currently the patient is BiPAP dependent, 15/8 with FiO2 1.0. Respiratory status essentially unchanged. Creatinine has increased over the last few days. IV Lasix has been held. Continue with current regimen of noninvasive ventilatory support, remdesivir dexamethasone and DVT prophylaxis. Repeat chest x-ray in a.m. (2) 2019 novel coronavirus-infected pneumonia (NCIP): Code(s): U07.1 - COVID-19; J12.82 - Pneumonia due to coronavirus disease 2019 Status: Acute Assessment and Plan: see above (3) Congestive heart failure: Qualifiers: Heart failure chronicity: unspecified Heart failure type: unspecified Qualified Code(s): I50.9 - Heart failure, unspecified Code(s): I50.9 - Heart failure, unspecified Status: Acute Assessment and Plan: Echo 09/26/21 Complete two-dimensional, color flow and Doppler transthoracic echocardiogram is performed. 2. Left ventricular chamber dimension is normal. 3. Left ventricular systolic function is normal, estimated at 60-65%. 4. There is no increased left ventricular wall thickness. 5. The left ventricular diastolic function is normal. 6. There is no aortic valve stenosis. 7. There is trace mitral valve regurgitation. (4) ROCKY (obstructive sleep apnea): Code(s): G47.33 - Obstructive sleep apnea (adult) (pediatric) Status: Acute Assessment and Plan: Using BiPAP as an inpatient 23/03 with 100% O2 (5) Pulmonary hypertension: Code(s): I27.20 - Pulmonary hypertension, unspecified Status: Acute Assessment and Plan: He has documented pulmonary hypertension, however on the recent echo the RVSP was not elevated. This may be due to technique. Subjective Date/time seen: 09/29/21 12:14 patient continues to be BiPAP dependent. He has had no new respiratory symptoms. He stated that his breathing is getting better. He has no fever. He has been on remdesivir dexamethasone. Also on diuresis for congestive heart failure. Review of Systems Review of Systems: All systems reviewed & are unremarkable except as noted in HPI and below Exam Narrative: GENERAL APPEARANCE: Well developed, well nourished, alert and cooperative, and appears to be in moderate respiratory distress while on BiPAP support SKIN: Inspection of the skin reveals no rashes, ulcerations or petechiae. HEENT: Sclerae anicteric and conjunctivae pink and moist. Extraocular movements were intact and pupils were equal, round. NECK: Supple. There was no thyroid enlargement, and no tenderness, or masses were felt. LUNGS: crackles posteriorly worse on right CARDIAC: There was a regular rate and rhythm without any murmurs, gallops, rubs. ABDOMEN: Soft and nontender with normal bowel sounds. LYMPH NODES: No lymphadenopathy was appreciated in the neck.. EXTREMITIES: No cyanosis, clubbing or edema. NEUROLOGIC: Alert and oriented x 3. Normal affect. Objective Data Vital Signs Vital Signs: Vital Signs - 24 hr 09/28/21 13:39 09/28/21 14:00 09/28/21 16:00 Temperature 36.0 C L Pulse Rate 81 83 73 Respiratory Rate 28 H 14 Blood Pressure 119/75 Pulse Oximetry 94 100 09/28/21 17:13 09/28/21 18:00 09/28/21 20:00
[2021-09-29 12:41] LABS: Glucose Point of Care 201 mg/dl (65-105)
--- NOTE | 2021-09-29 15:55 | PM.IMPN ---
Progress Note: A&P Assessment and Plan (1) Acute respiratory failure with hypoxia: Code(s): J96.01 - Acute respiratory failure with hypoxia Status: Acute Assessment and Plan: Patient was on nasal cannula on admission but progressed rapidly high-flow nasal cannula and ultimately to BiPAP on 09/26/2021. Was stabilized. Pulmonary was consulted. Today, he was able to be weaned back down to high-flow nasal cannula. He is currently on 55 L at 80% F1O2. Continue supportive care. Continue remdesivir and dexamethasone. IV Lasix stopped. Wean oxygen as tolerated. (2) 2019 novel coronavirus-infected pneumonia (NCIP): Code(s): U07.1 - COVID-19; J12.82 - Pneumonia due to coronavirus disease 2019 Status: Acute Assessment and Plan: Symptoms of cough, nausea, vomiting and shortness of breath began on 09/19/2021. He presented to the emergency room and was found to be COVID positive on 09/23/2021. Place in [place] isolation precautions, cardiac monitoring, and continuous pulse ox. He is unvaccinated. Chest x-ray on admission shows diffuse lung disease. CTA of the chest 09/26/2021 shows diffuse lung disease bilaterally consistent with COVID pneumonia. He was started on supplemental oxygen but progressed rapidly to BiPAP treatment. He remains on remdesivir and dexamethasone. Baricitinib was stopped because of his CKD. Pulmonary was consulted appreciate their input. PICC line was inserted. Continue current treatment plan. Wean oxygen as tolerated. (3) Congestive heart failure: Qualifiers: Heart failure chronicity: unspecified Heart failure type: unspecified Qualified Code(s): I50.9 - Heart failure, unspecified Code(s): I50.9 - Heart failure, unspecified Status: Acute Assessment and Plan: CXR on admission as mentioned above. BNP 2260. Echo on 09/26/21 revealed LVEF 60-65% with moderate pulmonary hypertension. Lasix IV stopped. (4) Hyponatremia: Code(s): E87.1 - Hypo-osmolality and hyponatremia Status: Acute Assessment and Plan: Patient was having poor oral intake due to nausea but this has resolved. Oral intake also decreased due to BiPAP. Patient actually eating better today once he was switched to high-flow nasal cannula per nursing staff. Will check sodium level today and follow daily. (5) FERMIN (acute kidney injury): Code(s): N17.9 - Acute kidney failure, unspecified Status: Acute Assessment and Plan: Creatinine 1.8 on admission and climbed to 2.4. Creatinine has improved since that time and closer to baseline. Continue to follow. Off Lasix IV now. 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 As above. (7) Diabetes mellitus: Qualifiers: Diabetes mellitus type: type 2 Diabetes mellitus chcf insulin use: unspecified chcf insulin use status Diabetes mellitus complication status: with other specified complication Qualified Code(s): E11.69 - Type 2 diabetes mellitus with other specified complication Code(s): E11.9 - Type 2 diabetes mellitus without complications Status: Acute Assessment and Plan: A1c 7.0. The patient's blood glucose was reviewed on 09/29 Glucose remains elevated at times Continue AccuCheks covering with sliding scale. Hypoglycemia protocol available as needed. Patient has insulin pump on, managed appropriately by the patient. (8) Essential (primary) hypertension: Code(s): I10 - Essential (primary) hypertension Status: Acute Assessment and Plan: Patient's blood pressure was reviewed on 09/29 Blood pressure remains well controlled. Will continue Norvasc, Lopressor and Cozaar. (9) DVT prophylaxis: Code(s): Z29.9 -
--- NOTE | 2021-09-29 16:48 | PC.NURSE ---
Patient stated he took his insulin pump off because it was empty. He said he takes humilin and every 2 untis drops him 25. He said he doctor does not want him below 140.
[2021-09-29 16:54] LABS: Anion Gap 7 mmol/L (8-16); Blood Urea Nitrogen 77 mg/dL (9-20); Calcium 7.8 mg/dL (8.4-10.2); Carbon Dioxide 32 mmol/L (22-30); Chloride 95 mmol/L (98-107); Estimated CRCL calculation 32 ml/min; Estimated Glomerular Filt Rate 34; Glucose 190 mg/dL (65-110); Potassium 4.2 mmol/L (3.4-5.0); Sodium 134 mmol/L (137-145)
[2021-09-29 17:21] LABS: Glucose Point of Care 207 mg/dl (65-105)
--- NOTE | 2021-09-29 20:30 | PC.NURSE ---
Patient stated he no longer wants to use his insulin pump. He wants [facility] to be in charge of his insulin administration. I notified Dr. Velasco of patients wishes.
--- NOTE | 2021-09-29 20:32 | PC.NURSE ---
Patient removed his insulin pump, He stated the pump was empty. I gave the pump to night nurse Sarah. I also gave her the insulin pump company phone number pump serial number is [id number]. Patients gave me his email address because she said we would need it to gain access to pump information when calling. [email or web address]
[2021-09-29 20:34] LABS: Glucose Point of Care 370 mg/dl (65-105)
[2021-09-29] MEDS: MELATONIN 3 MG TABLET PO (21:29)
[2021-09-29] MEDS: INSULIN GLARGINE (*BKC) 100 UNITS/ML 8 UNITS SUB-Q (21:30)
[2021-09-29] MEDS: INSULIN ASPART (*BKC) 100 UNITS/ML 8 UNITS SUB-Q (21:40)
--- NOTE | 2021-09-29 22:17 | PC.NURSE ---
09/29/21 THIS NURSE SPOKE WITH TANDEM IT MARINE STEAM FITTER HELPER (JUNAID). IT MARINE STEAM FITTER HELPER HELPED THIS NURSE ACCESS OPTIONS MENU ON PATIENT INSULIN PUMP. BASAL RATE RANGES FOLLOWS: BETWEEN 1.4-1.55 THROUGHOUT A 24 HOUR PERIOD FOR ANY FURTHER QUESTIONS REGARDING INSULIN PUMP:
[2021-09-29 23:22] LABS: Glucose Point of Care 403 mg/dl (65-105)
[2021-09-30] VITALS (22 sets, daily range): BP systolic 114–150; BP diastolic 48–84; PULSE 54–94; RESP 16–22; TEMP 35.9–37; O2SAT 91–97
[2021-09-30] MEDS: INSULIN ASPART (*BKC) 100 UNITS/ML 6 UNITS SUB-Q ×2 (00:05→23:36)
[2021-09-30] MEDS: INSULIN GLARGINE (*BKC) 100 UNITS/ML 28 UNITS SUB-Q (00:05)
[2021-09-30] MEDS: ALBUTEROL SULFATE (*SP) INHALER 2 PUFF INHALATION ×4 (02:24→21:20)
[2021-09-30 04:29] LABS: Glucose Point of Care 243 mg/dl (65-105)
[2021-09-30 05:15] LABS: Alveolar/Arterial O2 Gradient 600.5 mmHg; Base Excess ABG 4.3 mEq/l (+/-2.0); Fractional Inspired Oxygen 100 %; HCO3 ABG 28.2 mEq/l (22.0-26.0); Oxygen Content ABG 16.9 %vol (16.0-22.0); Oxygen Saturation ABG 95.6 % (95.0-100.0); Oxyhemoglobin 92.5 % THb (90.0-100.0); PCO2 ABG 39.4 mmHg (35.0-45.0); PO2 ABG 73.1 mmHg (80.0-100.0); PO2 FiO2 Ratio Arterial Blood 0.73 %; pH ABG 7.472 (7.350-7.450)
[2021-09-30 05:16] LABS: Device NON-INVASIVE VENT; Modified Allen's Test Pass; Non-Invasive Vent Rate 14 /MIN; Site Drawn RIGHT RADIAL
[2021-09-30 05:17] LABS: Non-Invasive Expiratory Pressure 8 CMH2O; Non-Invasive Inspiratory Pressure 15 CMH2O
[2021-09-30] MEDS: LEVOTHYROXINE SODIUM 125 MCG TABLET PO (05:42)
[2021-09-30] MEDS: CENTRAL LINE FLUSH 10 ML IV PUSH ×2 (05:42→21:03)
[2021-09-30 06:17] LABS: Basophils Percent Auto 0.1 % (0.2-1.2); Hematocrit 36.4 % (42.0-52.0); Hemoglobin 12.1 g/dL (14.0-18.0); Immature Granulocyte Absolute 0.11 K/mm3 (0.00-0.031); Immature Granulocyte Percent A 0.8 % (0-0.5); Lymphocytes Absolute Auto 0.28 K/mm3 (0.9-3.2); Lymphocytes Percent Auto 2.1 % (18.3-44.2); Mean Corpuscular HGB Conc 33.2 g/dl (32-36); Mean Corpuscular Hemoglobin 32.4 pg (26-34); Mean Corpuscular Volume 97.3 fl (80-100); Mean Platelet Volume 10.5 fl (7.4-10.4); Monocytes Absolute Auto 0.9 K/mm3 (0.1-0.6); Monocytes Percent Auto 6.7 % (2.6-8.5); Neutrophils Absolute Auto 12.1 K/mm3 (1.3-6.7); Neutrophils Percent Auto 90.3 % (45.5-73.1); Platelet Count Result 311 k/mm3 (150-375); Red Blood Count 3.74 M/mm3 (4.6-6.20); Red Cell Distribution Width 12.5 % (11.5-14.5); White Blood Count 13.4 K/mm3 (4.5-10.0)
[2021-09-30 06:50] LABS: Platelet Estimate Adequate (Adequate)
[2021-09-30 06:51] LABS: Acanthocytes 1+ (NORMAL); Burr Cells 1+ (NORMAL); Ovalocytes 1+ (NORMAL)
[2021-09-30 07:30] LABS: INR 1.1; Prothrombin Time 14.1 Seconds (11.1-14.7)
[2021-09-30 07:36] LABS: Alanine Aminotransferase 39 U/L (4-50); Albumin Level 2.8 g/dL (3.5-5.1); Alkaline Phosphatase 63 U/L (38-126); Anion Gap 4 mmol/L (8-16); Aspartate Amino Transferase 51 U/L (17-59); Bilirubin,Total 0.8 mg/dL (0.2-1.3); Blood Urea Nitrogen 85 mg/dL (9-20); Calcium 7.7 mg/dL (8.4-10.2); Carbon Dioxide 33 mmol/L (22-30); Chloride 96 mmol/L (98-107); Estimated CRCL calculation 30 ml/min; Estimated Glomerular Filt Rate 32; Glucose 249 mg/dL (65-110); Magnesium 2.6 mg/dL (1.6-2.3); Phosphorus 4.7 mg/dL (2.5-4.5); Potassium 4.2 mmol/L (3.4-5.0); Sodium 133 mmol/L (137-145)
[2021-09-30 10:07] LABS: Glucose Point of Care 254 mg/dl (65-105)
[2021-09-30] MEDS: REMDESIVIR 100 MG/NS 250 ML 100 MG/250 ML BAG 250 MG IVPB (10:22)
[2021-09-30] MEDS: DEXAMETHASONE 2 MG TABLET 6 MG PO (10:23)
[2021-09-30] MEDS: ASPIRIN 81 MG ENTERIC TABLET PO (10:23)
[2021-09-30] MEDS: ENOXAPARIN 40 MG/0.4 ML SYRINGE SUB-Q (10:23)
[2021-09-30] MEDS: LORATADINE 10 MG TABLET PO (10:23)
[2021-09-30] MEDS: guaiFENesin 12 HR 600 MG TABCR PO ×2 (10:24→20:39)
[2021-09-30] MEDS: amLODIPine BESYLATE 5 MG TABLET 10 MG PO (10:24)
[2021-09-30] MEDS: LOSARTAN POTASSIUM 25 MG TABLET PO (10:24)
[2021-09-30] MEDS: ATORVASTATIN 40 MG TABLET PO (10:24)
[2021-09-30] MEDS: METOPROLOL TARTRATE 25 MG TABLET PO ×2 (10:24→20:39)
--- NOTE | 2021-09-30 10:29 | PM.PNPUL ---
Progress Note: A&P Assessment and Plan (1) Acute respiratory failure with hypoxia: Code(s): J96.01 - Acute respiratory failure with hypoxia Status: Acute Assessment and Plan: 86-year-old man with history of left ventricular diastolic dysfunction, elevated pulmonary artery systolic pressure on previous echocardiogram, diabetes mellitus, obstructive sleep apnea presented with increasing shortness of breath bilateral pulmonary infiltrates and associated hypoxemia related to congestive heart failure and COVID-19 infection. Currently the patient is BiPAP dependent, 15/8 with FiO2 1.0. Clinically the respiratory status essentially unchanged. chest x-ray done today showed some clearing of infiltrates compared to chest x-ray taken on 09/24. Has negative fluid balance over the last several days. IV Lasix has been held. Continue with current regimen of noninvasive ventilatory support, remdesivir dexamethasone and DVT prophylaxis. Repeat chest x-ray in a.m. (2) 2018 novel coronavirus-infected pneumonia (NCIP): Code(s): U07.1 - COVID-19; J12.82 - Pneumonia due to coronavirus disease 2019 Status: Acute Assessment and Plan: see above (3) Congestive heart failure: Qualifiers: Heart failure chronicity: unspecified Heart failure type: unspecified Qualified Code(s): I50.9 - Heart failure, unspecified Code(s): I50.9 - Heart failure, unspecified Status: Acute Assessment and Plan: Echo 09/26/21 Complete two-dimensional, color flow and Doppler transthoracic echocardiogram is performed. 2. Left ventricular chamber dimension is normal. 3. Left ventricular systolic function is normal, estimated at 60-65%. 4. There is no increased left ventricular wall thickness. 5. The left ventricular diastolic function is normal. 6. There is no aortic valve stenosis. 7. There is trace mitral valve regurgitation. (4) ROCKY (obstructive sleep apnea): Code(s): G47.33 - Obstructive sleep apnea (adult) (pediatric) Status: Acute Assessment and Plan: Using BiPAP as an inpatient 23/03 with 100% O2 (5) Pulmonary hypertension: Code(s): I27.20 - Pulmonary hypertension, unspecified Status: Acute Assessment and Plan: He has documented pulmonary hypertension, however on the recent echo the RVSP was not elevated. This may be due to technique. Subjective Date/time seen: 09/30/21 10:29 Patient without any new respiratory symptoms. He stated his breathing getting better. Still on BiPAP support 23/03 and a high FiO2. Currently on remdesivir and dexamethasone IV for COVID-19 infection. Review of Systems Review of Systems: All systems reviewed & are unremarkable except as noted in HPI and below Exam Narrative: GENERAL APPEARANCE: Well developed, well nourished, alert and cooperative, and appears to be in moderate respiratory distress while on BiPAP support SKIN: Inspection of the skin reveals no rashes, ulcerations or petechiae. HEENT: Sclerae anicteric and conjunctivae pink and moist. Extraocular movements were intact and pupils were equal, round. NECK: Supple. There was no thyroid enlargement, and no tenderness, or masses were felt. LUNGS: crackles posteriorly worse on right CARDIAC: There was a regular rate and rhythm without any murmurs, gallops, rubs. ABDOMEN: Soft and nontender with normal bowel sounds. LYMPH NODES: No lymphadenopathy was appreciated in the neck.. EXTREMITIES: No cyanosis, clubbing or edema. NEUROLOGIC: Alert and oriented x 3. Normal affect. Objective Data Vital Signs Vital Signs: Vital Signs - 24 hr 09/29/21 11:14 02/21/22 11:20 09/29/21 12:00 Temperature 36.1 C L Pul
--- NOTE | 2021-09-30 11:50 | PM.IMPN ---
Progress Note: A&P Assessment and Plan (1) Acute respiratory failure with hypoxia: Code(s): J96.01 - Acute respiratory failure with hypoxia Status: Acute Assessment and Plan: Patient was on nasal cannula on admission but progressed rapidly to BiPAP on 09/26/2021. Was stabilized. Pulmonary was consulted. He was able to be weaned back down to high-flow nasal cannula yesterday. Continue supportive care. Continue remdesivir and dexamethasone. Wean to using BiPAP only for night time and with naps. (2) 2019 novel coronavirus-infected pneumonia (NCIP): Code(s): U07.1 - COVID-19; J12.82 - Pneumonia due to coronavirus disease 2019 Status: Acute Assessment and Plan: Symptoms of cough, nausea, vomiting and shortness of breath began on 09/19/21. He presented to the emergency room and was found to be COVID positive on 09/23/2021. Place in [place] [id number] isolation precautions, cardiac monitoring, and continuous pulse ox. He is unvaccinated. Chest x-ray on admission shows diffuse lung disease. CTA of the chest 09/26/2021 shows diffuse lung disease bilaterally consistent with COVID pneumonia. He was started on supplemental oxygen but progressed rapidly to BiPAP treatment. He remains on remdesivir and dexamethasone. Baricitinib was stopped because of his CKD. Pulmonary was consulted and appreciate their input. PICC line was inserted. Continue current treatment plan. Wean oxygen as tolerated. (3) Congestive heart failure: Qualifiers: Heart failure chronicity: unspecified Heart failure type: unspecified Qualified Code(s): I50.9 - Heart failure, unspecified Code(s): I50.9 - Heart failure, unspecified Status: Acute Assessment and Plan: CXR on admission as mentioned above. BNP 2260. Echo on 09/26/21 revealed LVEF 60-65% with moderate pulmonary hypertension. Was on Lasix IV but this has been stopped. (4) Hyponatremia: Code(s): E87.1 - Hypo-osmolality and hyponatremia Status: Acute Assessment and Plan: Patient was having poor oral intake due to nausea but this has resolved. Oral intake also decreased due to BiPAP. Patient improving and beginning to eat better. Na level climbing as expected. (5) FERMIN (acute kidney injury): Code(s): N17.9 - Acute kidney failure, unspecified Status: Acute Assessment and Plan: Creatinine 1.8 on admission and climbed to 2.4. Creatinine has improved since that time and closer to baseline. Continue to follow. He is off Lasix IV now. 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 As above. (7) Diabetes mellitus: Qualifiers: Diabetes mellitus complication status: with other specified complication Diabetes mellitus residential insulin use: unspecified terminal gauger insulin use status Diabetes mellitus type: type 2 Qualified Code(s): E11.69 - Type 2 diabetes mellitus with other specified complication Code(s): E11.9 - Type 2 diabetes mellitus without complications Status: Acute Assessment and Plan: A1c 7.0. The patient's blood glucose was reviewed on 09/30 Patient was on his insulin pump but he removed it yesterday. Unfortunately, he does not know his settings. Lantus started last night but needed quite a bit of correction. Glucose remains elevated Continue AccuCheks covering with sliding scale. Hypoglycemia protocol available as needed. Advance lantus and add meal time insulin. (8) Essential (primary) hypertension: Code(s): I10 - Essential (primary) hypertension Status: Acute Assessment and Plan: Patient's blood pressure was reviewed on 09/30 Blood pressure remains reasonably well controlled. Will continue Norvasc, Lopressor and Cozaar. (9) DVT p
[2021-09-30 12:39] LABS: Glucose Point of Care 461 mg/dl (65-105)
[2021-09-30] MEDS: INSULIN ASPART (*BKC) 100 UNITS/ML 7 UNITS SUB-Q ×2 (13:06→17:32)
[2021-09-30 17:35] LABS: Glucose Point of Care 388 mg/dl (65-105)
[2021-09-30 19:49] LABS: Glucose Point of Care 465 mg/dl (65-105)
[2021-09-30] MEDS: MELATONIN 3 MG TABLET PO (20:39)
[2021-09-30] MEDS: INSULIN GLARGINE (*BKC) 100 UNITS/ML 40 UNITS SUB-Q (20:45)
[2021-09-30] MEDS: INSULIN ASPART (*BKC) 100 UNITS/ML 8 UNITS SUB-Q (20:45)
[2021-09-30 23:01] LABS: Glucose Point of Care 387 mg/dl (65-105)
[2021-10-01] VITALS (18 sets, daily range): BP systolic 108–152; BP diastolic 51–68; PULSE 59–97; RESP 16–26; TEMP 35.9–36.4; O2SAT 68–96; BMI 31.9
[2021-10-01] MEDS: ALBUTEROL SULFATE (*SP) INHALER 2 PUFF INHALATION ×4 (02:10→20:05)
[2021-10-01 06:41] LABS: Basophils Percent Auto 0.1 % (0.2-1.2); Hematocrit 36.2 % (42.0-52.0); Hemoglobin 12.3 g/dL (14.0-18.0); Immature Granulocyte Percent A 0.6 % (0-0.5); Lymphocytes Absolute Auto 0.23 K/mm3 (0.9-3.2); Lymphocytes Percent Auto 1.4 % (18.3-44.2); Mean Corpuscular Hemoglobin 32.7 pg (26-34); Mean Corpuscular Volume 96.3 fl (80-100); Mean Platelet Volume 10.6 fl (7.4-10.4); Monocytes Absolute Auto 0.8 K/mm3 (0.1-0.6); Monocytes Percent Auto 4.6 % (2.6-8.5); Neutrophils Absolute Auto 15.7 K/mm3 (1.3-6.7); Neutrophils Percent Auto 93.3 % (45.5-73.1); Platelet Count Result 304 k/mm3 (150-375); Red Blood Count 3.76 M/mm3 (4.6-6.20); Red Cell Distribution Width 12.2 % (11.5-14.5); White Blood Count 16.8 K/mm3 (4.5-10.0)
[2021-10-01] MEDS: CENTRAL LINE FLUSH 10 ML IV PUSH ×3 (06:56→20:47)
[2021-10-01] MEDS: LEVOTHYROXINE SODIUM 125 MCG TABLET PO (06:56)
[2021-10-01 07:28] LABS: Alanine Aminotransferase 35 U/L (4-50); Aspartate Amino Transferase 52 U/L (17-59); CRP 6.2 mg/dL (<1.0); Estimated CRCL calculation 33 ml/min; Estimated Glomerular Filt Rate 36
[2021-10-01 07:31] LABS: Acanthocytes 2+ (NORMAL); Anisocytosis 1+ (NORMAL); Ovalocytes 1+ (NORMAL); Platelet Estimate Adequate (Adequate)
[2021-10-01 08:21] LABS: Glucose Point of Care 216 mg/dl (65-105)
[2021-10-01] MEDS: LORATADINE 10 MG TABLET PO (09:12)
[2021-10-01] MEDS: ATORVASTATIN 40 MG TABLET PO (09:12)
[2021-10-01] MEDS: LOSARTAN POTASSIUM 25 MG TABLET PO (09:12)
[2021-10-01] MEDS: METOPROLOL TARTRATE 25 MG TABLET PO ×2 (09:13→20:47)
[2021-10-01] MEDS: DEXAMETHASONE 2 MG TABLET 6 MG PO (09:13)
[2021-10-01] MEDS: ENOXAPARIN 40 MG/0.4 ML SYRINGE SUB-Q (09:13)
[2021-10-01] MEDS: amLODIPine BESYLATE 5 MG TABLET 10 MG PO (09:13)
[2021-10-01] MEDS: guaiFENesin 12 HR 600 MG TABCR PO ×2 (09:13→20:47)
[2021-10-01] MEDS: REMDESIVIR 100 MG/NS 250 ML 100 MG/250 ML BAG 250 MG IVPB (09:14)
[2021-10-01] MEDS: ASPIRIN 81 MG ENTERIC TABLET PO (09:15)
[2021-10-01] MEDS: INSULIN ASPART (*BKC) 100 UNITS/ML 7 UNITS SUB-Q (09:15)
--- NOTE | 2021-10-01 10:02 | PM.PNPUL ---
Progress Note: A&P Assessment and Plan (1) Acute respiratory failure with hypoxia: Code(s): J96.01 - Acute respiratory failure with hypoxia Status: Acute Assessment and Plan: 86-year-old man with history of left ventricular diastolic dysfunction, elevated pulmonary artery systolic pressure on previous echocardiogram, diabetes mellitus, obstructive sleep apnea presented with increasing shortness of breath bilateral pulmonary infiltrates and associated hypoxemia related to congestive heart failure and COVID-19 infection. Currently the patient is BiPAP dependent, 15/8 with FiO2 1.0. Clinically the respiratory status essentially unchanged. Has negative fluid balance over the last several days. IV Lasix has been held. Continue with current regimen of noninvasive ventilatory support, remdesivir dexamethasone and DVT prophylaxis. Had a discussion with the patient regarding resuming BiPAP support at night and p.r.n. during the day. Patient was agreeable with BiPAP support at night. repeat CRP. (2) 2019 novel coronavirus-infected pneumonia (NCIP): Code(s): U07.1 - COVID-19; J12.82 - Pneumonia due to coronavirus disease 2019 Status: Acute Assessment and Plan: see above (3) Congestive heart failure: Qualifiers: Heart failure chronicity: unspecified Heart failure type: unspecified Qualified Code(s): I50.9 - Heart failure, unspecified Code(s): I50.9 - Heart failure, unspecified Status: Acute Assessment and Plan: Echo 09/26/21 Complete two-dimensional, color flow and Doppler transthoracic echocardiogram is performed. 2. Left ventricular chamber dimension is normal. 3. Left ventricular systolic function is normal, estimated at 60-65%. 4. There is no increased left ventricular wall thickness. 5. The left ventricular diastolic function is normal. 6. There is no aortic valve stenosis. 7. There is trace mitral valve regurgitation. (4) ROCKY (obstructive sleep apnea): Code(s): G47.33 - Obstructive sleep apnea (adult) (pediatric) Status: Acute Assessment and Plan: Using BiPAP as an inpatient 23/03 with 100% O2 (5) Pulmonary hypertension: Code(s): I27.20 - Pulmonary hypertension, unspecified Status: Acute Assessment and Plan: He has documented pulmonary hypertension, however on the recent echo the RVSP was not elevated. This may be due to technique. Subjective Date/time seen: 10/01/21 10:02 patient stated that his breathing is getting better. No significant difference noted in gas exchange. Patient remaining on high FiO2. Currently on high-flow nasal cannula. Refused BiPAP support last night. Review of Systems Review of Systems: All systems reviewed & are unremarkable except as noted in HPI and below Exam Narrative: GENERAL APPEARANCE: Well developed, well nourished, alert and cooperative, and appears to be in moderate respiratory distress while on BiPAP support SKIN: Inspection of the skin reveals no rashes, ulcerations or petechiae. HEENT: Sclerae anicteric and conjunctivae pink and moist. Extraocular movements were intact and pupils were equal, round. NECK: Supple. There was no thyroid enlargement, and no tenderness, or masses were felt. LUNGS: crackles posteriorly worse on right CARDIAC: There was a regular rate and rhythm without any murmurs, gallops, rubs. ABDOMEN: Soft and nontender with normal bowel sounds. LYMPH NODES: No lymphadenopathy was appreciated in the neck.. EXTREMITIES: No cyanosis, clubbing or edema. NEUROLOGIC: Alert and oriented x 3. Normal affect. Objective Data Vital Signs Vital Signs: Vital Signs - 24 hr 09/30/21 11:25 09/30/21 1
[2021-10-01 10:20] LABS: INR 1.2; Prothrombin Time 14.5 Seconds (11.1-14.7)
--- NOTE | 2021-10-01 11:24 | PM.IMPN ---
Progress Note: A&P Assessment and Plan (1) Acute respiratory failure with hypoxia: Code(s): J96.01 - Acute respiratory failure with hypoxia Status: Acute Assessment and Plan: Patient was on nasal cannula on admission but progressed rapidly to BiPAP on 09/26/2021. Was stabilized. Pulmonary was consulted. He was able to be weaned back down to high-flow nasal cannula. He did not wear his BiPAP last night and he was encouraged to do so. Continue supportive care. Continue remdesivir and dexamethasone. Wean to using BiPAP only for night time, with naps and PRN for hypoxa. Will resume BiPAP now. Spoke with and she was updated. (2) 2019 novel coronavirus-infected pneumonia (NCIP): Code(s): U07.1 - COVID-19; J12.82 - Pneumonia due to coronavirus disease 2019 Status: Acute Assessment and Plan: Symptoms of cough, nausea, vomiting and shortness of breath began on 09/19/21. He presented to the emergency room and was found to be COVID positive on 09/23/2021. Place in [place] isolation precautions, cardiac monitoring, and continuous pulse ox. He is unvaccinated. Chest x-ray on admission shows diffuse lung disease. CT of the chest 09/26/2021 shows diffuse lung disease bilaterally consistent with COVID pneumonia. He was started on supplemental oxygen but progressed rapidly to BiPAP treatment. He remains on remdesivir and dexamethasone. Baricitinib was stopped because of his CKD. Pulmonary was consulted and appreciate their input. PICC line was inserted. WBC climbing but felt related to the steroids. Continue current treatment plan. Wean oxygen as tolerated. (3) Congestive heart failure: Qualifiers: Heart failure chronicity: unspecified Heart failure type: unspecified Qualified Code(s): I50.9 - Heart failure, unspecified Code(s): I50.9 - Heart failure, unspecified Status: Acute Assessment and Plan: CXR on admission as mentioned above. BNP 2260. Echo on 09/26/21 revealed LVEF 60-65% with moderate pulmonary hypertension. Was on Lasix IV with negative fluid balance. Lasix has been stopped. Tele noted. Will check EKG. EKG showing LAD and AFib with controlled rate now. No hx of AFib. [id number] score of 5. He is over 80 and Cr>1.5 so will start Eliquis 2.5 BID. Monitor on tele (4) Hyponatremia: Code(s): E87.1 - Hypo-osmolality and hyponatremia Status: Acute Assessment and Plan: Patient was having poor oral intake due to nausea and decreased due to BiPAP. Patient improving and beginning to eat better. (5) FERMIN (acute kidney injury): Code(s): N17.9 - Acute kidney failure, unspecified Status: Acute Assessment and Plan: Creatinine 1.8 on admission and climbed to 2.4. Creatinine has improved since that time and back down to 1.8 today. Continue to follow. He is off Lasix IV now. 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 As above. (7) Diabetes mellitus: Qualifiers: Diabetes mellitus complication status: with other specified complication Diabetes mellitus long-term insulin use: unspecified exterminator helper insulin use status Diabetes mellitus type: type 2 Qualified Code(s): E11.69 - Type 2 diabetes mellitus with other specified complication Code(s): E11.9 - Type 2 diabetes mellitus without complications Status: Acute Assessment and Plan: A1c 7.0. The patient's blood glucose was reviewed on 10/01 Patient was on his insulin pump but he removed it on 09/29. Unfortunately, he does not know his settings. Lantus started then meal time insulin added. Last night, patient needed more insulin and glucose remains elevated. Continue AccuCheks covering with sliding scale. Hypoglycemia protocol available as
--- NOTE | 2021-10-01 12:03 | ECG_ITS ---
Measurements Intervals [place] Rate: 83 P: OR: 0 QRS: -39 QRSD: 105 T: 56 QT: 385 QTc: 455 Interpretive Statements ATRIAL FIBRILLATION LEFT AXIS DEVIATION BASELINE ARTIFACT- I, II, AVR, AVL, AVF, V1, V4 ABNORMAL ECG Electronically Signed On 10-01-2021 14:24:44 [employer] by Rich Contreras D.O.
[2021-10-01 12:28] LABS: Glucose Point of Care 288 mg/dl (65-105)
[2021-10-01] MEDS: INSULIN ASPART (*BKC) 100 UNITS/ML 10 UNITS SUB-Q ×2 (12:51→18:41)
--- NOTE | 2021-10-01 13:32 | PCNWS ---
Weekly nutritional screen. Patient is tolerating current diet with adequate intake. No weight loss reported. No nutritional needs at this time.
[2021-10-01 17:15] LABS: Glucose Point of Care 370 mg/dl (65-105)
[2021-10-01] MEDS: INSULIN ASPART (*BKC) 100 UNITS/ML SUB-Q (18:41)
[2021-10-01 19:40] LABS: Glucose Point of Care 323 mg/dl (65-105)
[2021-10-01] MEDS: APIXABAN 2.5 MG TABLET PO (20:46)
[2021-10-01] MEDS: MELATONIN 3 MG TABLET PO (20:47)
[2021-10-01] MEDS: INSULIN GLARGINE (*BKC) 100 UNITS/ML 44 UNITS SUB-Q (20:47)
[2021-10-02] VITALS (23 sets, daily range): BP systolic 108–154; BP diastolic 52–62; PULSE 60–98; RESP 16–30; TEMP 35.7–36.3; O2SAT 90–99
[2021-10-02] MEDS: ALBUTEROL SULFATE (*SP) INHALER 2 PUFF INHALATION ×4 (02:29→21:16)
[2021-10-02] MEDS: CENTRAL LINE FLUSH 10 ML IV PUSH ×3 (05:34→20:10)
[2021-10-02] MEDS: LEVOTHYROXINE SODIUM 125 MCG TABLET PO (05:34)
[2021-10-02 05:47] LABS: Basophils Percent Auto 0.1 % (0.2-1.2); Hematocrit 37.6 % (42.0-52.0); Hemoglobin 12.8 g/dL (14.0-18.0); Immature Granulocyte Absolute 0.14 K/mm3 (0.00-0.031); Immature Granulocyte Percent A 0.7 % (0-0.5); Lymphocytes Absolute Auto 0.18 K/mm3 (0.9-3.2); Lymphocytes Percent Auto 0.9 % (18.3-44.2); Mean Corpuscular Hemoglobin 32.8 pg (26-34); Mean Corpuscular Volume 96.4 fl (80-100); Mean Platelet Volume 10.7 fl (7.4-10.4); Monocytes Absolute Auto 0.9 K/mm3 (0.1-0.6); Monocytes Percent Auto 4.4 % (2.6-8.5); Neutrophils Absolute Auto 18.6 K/mm3 (1.3-6.7); Neutrophils Percent Auto 93.9 % (45.5-73.1); Platelet Count Result 284 k/mm3 (150-375); Red Cell Distribution Width 12.3 % (11.5-14.5); White Blood Count 19.8 K/mm3 (4.5-10.0)
[2021-10-02 06:06] LABS: Alanine Aminotransferase 33 U/L (4-50); Albumin Level 2.7 g/dL (3.5-5.1); Alkaline Phosphatase 78 U/L (38-126); Anion Gap 3 mmol/L (8-16); Aspartate Amino Transferase 36 U/L (17-59); Bilirubin,Total 0.7 mg/dL (0.2-1.3); Blood Urea Nitrogen 103 mg/dL (9-20); CRP 6.5 mg/dL (<1.0); Calcium 7.2 mg/dL (8.4-10.2); Carbon Dioxide 32 mmol/L (22-30); Chloride 95 mmol/L (98-107); Estimated CRCL calculation 29 ml/min; Estimated Glomerular Filt Rate 30; Glucose 235 mg/dL (65-110); Magnesium 2.7 mg/dL (1.6-2.3); Potassium 4.3 mmol/L (3.4-5.0); Sodium 130 mmol/L (137-145)
[2021-10-02 07:41] LABS: Glucose Point of Care 245 mg/dl (65-105)
[2021-10-02] MEDS: INSULIN ASPART (*BKC) 100 UNITS/ML SUB-Q ×3 (09:23→17:16)
[2021-10-02] MEDS: INSULIN ASPART (*BKC) 100 UNITS/ML 10 UNITS SUB-Q ×3 (09:24→17:16)
[2021-10-02] MEDS: METOPROLOL TARTRATE 25 MG TABLET PO ×2 (09:26→20:09)
[2021-10-02] MEDS: guaiFENesin 12 HR 600 MG TABCR PO ×2 (09:27→20:09)
[2021-10-02] MEDS: ATORVASTATIN 40 MG TABLET PO (09:27)
[2021-10-02] MEDS: LORATADINE 10 MG TABLET PO (09:27)
[2021-10-02] MEDS: ASPIRIN 81 MG ENTERIC TABLET PO (09:28)
[2021-10-02] MEDS: APIXABAN 2.5 MG TABLET PO ×2 (09:28→20:09)
[2021-10-02] MEDS: amLODIPine BESYLATE 5 MG TABLET 10 MG PO (09:29)
[2021-10-02] MEDS: DEXAMETHASONE 2 MG TABLET 6 MG PO (09:29)
[2021-10-02 09:47] LABS: INR 1.4; Prothrombin Time 16.2 Seconds (11.1-14.7)
[2021-10-02] MEDS: REMDESIVIR 100 MG/NS 250 ML 100 MG/250 ML BAG 250 MG IVPB (10:53)
--- NOTE | 2021-10-02 12:44 | PM.PNPUL ---
Progress Note: A&P Assessment and Plan (1) Acute respiratory failure with hypoxia: Code(s): J96.01 - Acute respiratory failure with hypoxia Status: Acute Assessment and Plan: 86-year-old man with history of left ventricular diastolic dysfunction, elevated pulmonary artery systolic pressure on previous echocardiogram, diabetes mellitus, obstructive sleep apnea presented with increasing shortness of breath bilateral pulmonary infiltrates and associated hypoxemia related to congestive heart failure and COVID-19 infection. Currently the patient is BiPAP dependent, 15/8 with FiO2 0.9. Clinically the respiratory status has been essentially unchanged over last several days. Has negative fluid balance over the last several days. IV Lasix has been held. Continue with current regimen of noninvasive ventilatory support, remdesivir, dexamethasone and DVT prophylaxis. CRP remains elevated. Repeat CXR in am. (2) 2019 novel coronavirus-infected pneumonia (NCIP): Code(s): U07.1 - COVID-19; J12.82 - Pneumonia due to coronavirus disease 2019 Status: Acute Assessment and Plan: see above (3) Congestive heart failure: Qualifiers: Heart failure chronicity: unspecified Heart failure type: unspecified Qualified Code(s): I50.9 - Heart failure, unspecified Code(s): I50.9 - Heart failure, unspecified Status: Acute Assessment and Plan: Echo 09/26/21 Complete two-dimensional, color flow and Doppler transthoracic echocardiogram is performed. 2. Left ventricular chamber dimension is normal. 3. Left ventricular systolic function is normal, estimated at 60-65%. 4. There is no increased left ventricular wall thickness. 5. The left ventricular diastolic function is normal. 6. There is no aortic valve stenosis. 7. There is trace mitral valve regurgitation. (4) ROCKY (obstructive sleep apnea): Code(s): G47.33 - Obstructive sleep apnea (adult) (pediatric) Status: Acute Assessment and Plan: Using BiPAP as an inpatient 23/03 with 100% O2 (5) Pulmonary hypertension: Code(s): I27.20 - Pulmonary hypertension, unspecified Status: Acute Assessment and Plan: He has documented pulmonary hypertension, however on the recent echo the RVSP was not elevated. This may be due to technique. Subjective Date/time seen: 10/02/21 12:44 Patient has no new respiratory symptoms. Remains BiPAP dependent, also on high FiO2. He has no fever cough wheezing or lower extremity edema. Review of Systems Review of Systems: All systems reviewed & are unremarkable except as noted in HPI and below Exam Narrative: GENERAL APPEARANCE: Well developed, well nourished, alert and cooperative, and appears to be in moderate respiratory distress while on BiPAP support SKIN: Inspection of the skin reveals no rashes, ulcerations or petechiae. HEENT: Sclerae anicteric and conjunctivae pink and moist. Extraocular movements were intact and pupils were equal, round. NECK: Supple. There was no thyroid enlargement, and no tenderness, or masses were felt. LUNGS: crackles posteriorly worse on right CARDIAC: There was a regular rate and rhythm without any murmurs, gallops, rubs. ABDOMEN: Soft and nontender with normal bowel sounds. LYMPH NODES: No lymphadenopathy was appreciated in the neck.. EXTREMITIES: No cyanosis, clubbing or edema. NEUROLOGIC: Alert and oriented x 3. Normal affect. Objective Data Vital Signs Vital Signs: Vital Signs - 24 hr 10/01/21 14:00 10/01/21 15:01 10/01/21 16:00 Temperature 36.1 C L Pulse Rate 76 86 Respiratory Rate 24 H Blood Pressure 120/51 L Pulse Oximetry 90 96 10/01/21 18:00
[2021-10-02 12:59] LABS: Glucose Point of Care 248 mg/dl (65-105)
[2021-10-02] MEDS: ACETAMINOPHEN 325 MG TABLET 650 MG PO (16:03)
--- NOTE | 2021-10-02 16:39 | PM.IMPN ---
Progress Note: A&P Assessment and Plan (1) Acute respiratory failure with hypoxia: Code(s): J96.01 - Acute respiratory failure with hypoxia Status: Acute Assessment and Plan: Patient was on nasal cannula on admission but progressed rapidly to BiPAP on 09/26/2021. Pulmonary was consulted. Continue supportive care. Continue remdesivir and dexamethasone. Wean BiPAP for use at night time and for naps as he tolerates. Spoke with with patient permission and she was updated. (2) 2019 novel coronavirus-infected pneumonia (NCIP): Code(s): U07.1 - COVID-19; J12.82 - Pneumonia due to coronavirus disease 2019 Status: Acute Assessment and Plan: Symptoms of cough, nausea, vomiting and shortness of breath began on 09/19/21. He presented to the emergency room and was found to be COVID positive on 09/23/2021. Place in [place] [address] isolation precautions, cardiac monitoring, and continuous pulse ox. He is unvaccinated. Chest x-ray on admission shows diffuse lung disease. CT of the chest 09/26/2021 shows diffuse lung disease bilaterally consistent with COVID pneumonia. He was started on supplemental oxygen but progressed rapidly to BiPAP treatment. He remains on remdesivir and dexamethasone. Baricitinib was stopped because of his CKD. Pulmonary was consulted and appreciate their input. PICC line was inserted. WBC climbing but felt related to the steroids. Continue current treatment plan. Wean oxygen as tolerated. Started Dexamethasone 09/24 so last dose is tomorrow. (3) Congestive heart failure: Qualifiers: Heart failure chronicity: unspecified Heart failure type: unspecified Qualified Code(s): I50.9 - Heart failure, unspecified Code(s): I50.9 - Heart failure, unspecified Status: Acute Assessment and Plan: CXR on admission as mentioned above. BNP 2260. Echo on 09/26/21 revealed LVEF 60-65% with normal diastolic function. Was on Lasix IV with negative fluid balance. Lasix has been stopped. Tele noted possible AFib. EKG 10/01 showing LAD and AFib with controlled rate now. No hx of AFib. [id number] score of 5. He is over 80 and Cr>1.5 so he was started on Eliquis 2.5 BID. hgb stable. Continue to monitor on tele. (4) Atrial fibrillation: Code(s): I48.91 - Unspecified atrial fibrillation Status: Acute Assessment and Plan: As above (5) Hyponatremia: Code(s): E87.1 - Hypo-osmolality and hyponatremia Status: Acute Assessment and Plan: Patient was having poor oral intake due to nausea and decreased due to BiPAP. Patient improving and beginning to eat better. Add supplements (6) FERMIN (acute kidney injury): Code(s): N17.9 - Acute kidney failure, unspecified Status: Acute Assessment and Plan: Creatinine 1.8 on admission and climbed to 2.4. Creatinine has improved since that time and hovering 1.8-2.1 range. BUN now 103 related to the steroids. Last steroid dose is tomorrow so will continue for now. Hold Cozaar for now. Continue to follow. (7) CKD stage 3 due to type 2 diabetes mellitus: Code(s): E11.22 - Type 2 diabetes mellitus with diabetic chronic kidney disease; N18.3 - Chronic kidney disease, stage 3 (moderate) Status: Acute Assessment and Plan: Baseline Cr 1.8. As above. (8) Diabetes mellitus: Qualifiers: Diabetes mellitus complication status: with other specified complication Diabetes mellitus snf insulin use: unspecified terminal worker insulin use status Diabetes mellitus type: type 2 Qualified Code(s): E11.69 - Type 2 diabetes mellitus with other specified complication Code(s): E11.9 - Type 2 diabetes mellitus without complications Status: Acute Assessment and Plan: A1c 7.0. The patient's blood glucose was reviewed on 10/02 Patient was on his insulin pump but he removed it on 09/29. He was started on lantus and Novolog. Glucose still elevated this
[2021-10-02 16:53] LABS: Glucose Point of Care 219 mg/dl (65-105)
[2021-10-02 19:46] LABS: Glucose Point of Care 185 mg/dl (65-105)
[2021-10-02] MEDS: INSULIN GLARGINE (*BKC) 100 UNITS/ML 50 UNITS SUB-Q (20:09)
[2021-10-02] MEDS: MELATONIN 3 MG TABLET PO (20:09)
[2021-10-03] VITALS (19 sets, daily range): BP systolic 100–153; BP diastolic 46–79; PULSE 75–110; RESP 16–30; TEMP 35.6–36.4; O2SAT 89–100; BMI 31.0
[2021-10-03] MEDS: ALBUTEROL SULFATE (*SP) INHALER 2 PUFF INHALATION ×4 (01:55→20:07)
[2021-10-03 04:59] LABS: Glucose Point of Care 62 mg/dl (65-105)
[2021-10-03] MEDS: LEVOTHYROXINE SODIUM 125 MCG TABLET PO (05:09)
[2021-10-03] MEDS: DEXTROSE 50% 25 GM/50 ML SYRINGE IV PUSH (05:09)
[2021-10-03 05:30] LABS: Basophils Percent Auto 0.1 % (0.2-1.2); Hematocrit 38.8 % (42.0-52.0); Hemoglobin 12.9 g/dL (14.0-18.0); Immature Granulocyte Percent A 0.9 % (0-0.5); Lymphocytes Absolute Auto 0.15 K/mm3 (0.9-3.2); Lymphocytes Percent Auto 0.7 % (18.3-44.2); Mean Corpuscular HGB Conc 33.2 g/dl (32-36); Mean Corpuscular Hemoglobin 31.9 pg (26-34); Monocytes Absolute Auto 0.9 K/mm3 (0.1-0.6); Monocytes Percent Auto 4.2 % (2.6-8.5); Neutrophils Absolute Auto 20.3 K/mm3 (1.3-6.7); Neutrophils Percent Auto 94.1 % (45.5-73.1); Platelet Count Result 288 k/mm3 (150-375); Red Blood Count 4.04 M/mm3 (4.6-6.20); Red Cell Distribution Width 12.2 % (11.5-14.5); White Blood Count 21.5 K/mm3 (4.5-10.0)
[2021-10-03 05:44] LABS: Alanine Aminotransferase 31 U/L (4-50); Albumin Level 2.5 g/dL (3.5-5.1); Alkaline Phosphatase 89 U/L (38-126); Anion Gap 4 mmol/L (8-16); Aspartate Amino Transferase 42 U/L (17-59); Bilirubin,Total 0.7 mg/dL (0.2-1.3); Blood Urea Nitrogen 104 mg/dL (9-20); Carbon Dioxide 32 mmol/L (22-30); Chloride 95 mmol/L (98-107); Estimated CRCL calculation 31 ml/min; Estimated Glomerular Filt Rate 34; Glucose 231 mg/dL (65-110); Potassium 4.3 mmol/L (3.4-5.0); Sodium 131 mmol/L (137-145)
[2021-10-03 05:47] LABS: Glucose Point of Care 135 mg/dl (65-105)
[2021-10-03 06:22] LABS: Prothrombin Time > 120.0 Seconds (11.1-14.7)
[2021-10-03 06:23] LABS: INR > 19.0
[2021-10-03 07:27] LABS: INR 1.4; Prothrombin Time 16.4 Seconds (11.1-14.7)
--- NOTE | 2021-10-03 08:55 | PM.IMPN ---
Progress Note: A&P Assessment and Plan (1) Acute respiratory failure with hypoxia: Code(s): J96.01 - Acute respiratory failure with hypoxia Status: Acute Assessment and Plan: Patient was on nasal cannula on admission but progressed rapidly to BiPAP on 09/26/2021. Pulmonary was consulted. He was started on remdesivir and dexamethasone. Condition worsened overnight and now on 26/05 with TV 1075 (was on 23/03). CXR reviewed and appears worse. Discussed at length with the practical nursing teacher. Will check ABG. Check procalcitonin and start abx for possible bacterial PNA. Doubt that this is CHF given the negative fluid balance and normal Echo. Consider PE on admission since he had positive DDimer with new AFib and could not get CTA (but on Eliquis now). Consider also aspiration since he is getting weak. Feel most likely that this is progression of COVID. Will discuss with home appliance washing machine mechanic. 40 minutes spent on critical care time. informed of the clinical change (2) 2019 novel coronavirus-infected pneumonia (NCIP): Code(s): U07.1 - COVID-19; J12.82 - Pneumonia due to coronavirus disease 2019 Status: Acute Assessment and Plan: Symptoms of cough, nausea, vomiting and shortness of breath began on 09/19/21. He presented to the emergency room and was found to be COVID positive on 09/23/2021. Place in COVID19 isolation precautions, cardiac monitoring, and continuous pulse ox. He is unvaccinated. Chest x-ray on admission shows diffuse lung disease. CT of the chest 09/26/2021 shows diffuse lung disease bilaterally consistent with COVID pneumonia. He was started on supplemental oxygen but progressed rapidly to BiPAP treatment. He completed 5 days of remdesivir and currently on another 5 days to be completed 10/05/21. Had a dose of dexamethasone in the ED so today is his last dose; stop Dexamethasone. Baricitinib was stopped because of his CKD. Pulmonary was consulted and appreciate their input. PICC line was inserted. No fevers; WBC climbing but felt related to the steroids. Check ABG. (3) Congestive heart failure: Qualifiers: Heart failure chronicity: unspecified Heart failure type: unspecified Qualified Code(s): I50.9 - Heart failure, unspecified Code(s): I50.9 - Heart failure, unspecified Status: Acute Assessment and Plan: CXR on admission as mentioned above. BNP 2260. Echo on 09/26/21 revealed LVEF 60-65% with normal diastolic dysfunction. Hx of elevated pulmonary pressure but not seen by the most recent Echo. Was on Lasix IV with negative fluid balance. Lasix has been stopped. Will hold on resuming at this time (4) Atrial fibrillation: Code(s): I48.91 - Unspecified atrial fibrillation Status: Acute Assessment and Plan: Tele noted possible AFib. EKG 10/01 showing LAD and AFib with controlled rate now. No hx of AFib. [id number] score of 5. He is over 80 and Cr>1.5 so he was started on Eliquis 2.5 BID. Hgb remaining stable. Brief runs of VTach noted but Mag was 2.7 and Potassium 4.3 yesterday. Continue to monitor on tele. Check Trop. Repeat mag level today. May need to repeat Echo to assess for wall motion abnormalities. (5) Hyponatremia: Code(s): E87.1 - Hypo-osmolality and hyponatremia Status: Acute Assessment and Plan: Patient was having poor oral intake due to nausea and decreased due to BiPAP. When patient was improving, he was eating better. Supplements added. BUN up from steroids but consider catabolic state as well. Consider TPN. (6) FERMIN (acute kidney injury): Code(s): N17.9 - Acute kidney failure, unspecified Status: Acute Assessment and Plan: Creatinine 1.8 on admission and climbed to 2.4. Creatinine has improved since that time and hovering 1.8-2.1 range. BUN now 104 related to the steroids. Hgb remaining stable at 13 so unlikely related to GI bleed. Last steroid dose is today. Continue to hold Cozaar for now.
[2021-10-03] MEDS: LORATADINE 10 MG TABLET PO (09:14)
[2021-10-03] MEDS: METOPROLOL TARTRATE 25 MG TABLET PO ×2 (09:14→22:52)
[2021-10-03] MEDS: guaiFENesin 12 HR 600 MG TABCR PO ×2 (09:15→22:53)
[2021-10-03] MEDS: ATORVASTATIN 40 MG TABLET PO (09:15)
[2021-10-03] MEDS: APIXABAN 2.5 MG TABLET PO ×2 (09:15→22:53)
[2021-10-03] MEDS: amLODIPine BESYLATE 5 MG TABLET 10 MG PO (09:15)
[2021-10-03] MEDS: ASPIRIN 81 MG ENTERIC TABLET PO (09:15)
[2021-10-03 09:58] LABS: Glucose Point of Care 110 mg/dl (65-105)
[2021-10-03] MEDS: REMDESIVIR 100 MG/NS 250 ML 100 MG/250 ML BAG 250 MG IVPB (10:15)
--- NOTE | 2021-10-03 10:23 | PM.PNPUL ---
Progress Note: A&P Assessment and Plan (1) Acute respiratory failure with hypoxia: Code(s): J96.01 - Acute respiratory failure with hypoxia Status: Acute Assessment and Plan: 86-year-old man with history of left ventricular diastolic dysfunction, elevated pulmonary artery systolic pressure on previous echocardiogram, diabetes mellitus, obstructive sleep apnea presented with increasing shortness of breath bilateral pulmonary infiltrates and associated hypoxemia related to congestive heart failure and COVID-19 infection. Currently the patient is BiPAP dependent 26/05. There is worsening of his respiratory status with the patient complaining of shortness of breath. Chest x-ray also showed worsening of bilateral infiltrates. Has negative fluid balance over the last several days. IV Lasix has been held. Dexamethasone has been discontinued; he is still on remdesivir. BUN higher over the last few days. Albumin has been low. New AFib noted with no significant increase in ventricular rate. Case was discussed with the hospitalist. Will add IV antibiotics for possible nosocomial acquired infection. Patient has been started on TPN. ABG pending. Consider transfer to ICU. (2) 2019 novel coronavirus-infected pneumonia (NCIP): Code(s): U07.1 - COVID-19; J12.82 - Pneumonia due to coronavirus disease 2019 Status: Acute Assessment and Plan: see above (3) Congestive heart failure: Qualifiers: Heart failure chronicity: unspecified Heart failure type: unspecified Qualified Code(s): I50.9 - Heart failure, unspecified Code(s): I50.9 - Heart failure, unspecified Status: Acute Assessment and Plan: Echo 09/26/21 Complete two-dimensional, color flow and Doppler transthoracic echocardiogram is performed. 2. Left ventricular chamber dimension is normal. 3. Left ventricular systolic function is normal, estimated at 60-65%. 4. There is no increased left ventricular wall thickness. 5. The left ventricular diastolic function is normal. 6. There is no aortic valve stenosis. 7. There is trace mitral valve regurgitation. (4) ROCKY (obstructive sleep apnea): Code(s): G47.33 - Obstructive sleep apnea (adult) (pediatric) Status: Acute Assessment and Plan: Using BiPAP as an inpatient 8 with 100% O2 (5) Pulmonary hypertension: Code(s): I27.20 - Pulmonary hypertension, unspecified Status: Acute Assessment and Plan: He has documented pulmonary hypertension, however on the recent echo the RVSP was not elevated. This may be due to technique. Subjective Date/time seen: 10/03/21 10:23 Patient complaining of not doing well today. He has more shortness of breath. He remains BiPAP dependent at 18/10, and FiO2 of 100%. He has no fever chills. Worsening of infiltrates noted on today's chest x-ray. Review of Systems Review of Systems: All systems reviewed & are unremarkable except as noted in HPI and below Exam Narrative: GENERAL APPEARANCE: Well developed, well nourished, alert and cooperative, and appears to be in moderate respiratory distress while on BiPAP support SKIN: Inspection of the skin reveals no rashes, ulcerations or petechiae. HEENT: Sclerae anicteric and conjunctivae pink and moist. Extraocular movements were intact and pupils were equal, round. NECK: Supple. There was no thyroid enlargement, and no tenderness, or masses were felt. LUNGS: crackles posteriorly worse on right CARDIAC: There was a irregular rate and rhythm without any murmurs, gallops, rubs. ABDOMEN: Soft and nontender with normal bowel sounds. LYMPH NODES: No lymphadenopathy was appreciated in the neck.. EXTREMIT
[2021-10-03 10:52] LABS: Alveolar/Arterial O2 Gradient 604.8 mmHg; Base Excess ABG 3.6 mEq/l (+/-2.0); Fractional Inspired Oxygen 100 %; HCO3 ABG 26.6 mEq/l (22.0-26.0); Modified Allen's Test Pass; Oxygen Content ABG 18.5 %vol (16.0-22.0); Oxygen Saturation ABG 95.9 % (95.0-100.0); Oxyhemoglobin 93.3 % THb (90.0-100.0); PCO2 ABG 35.2 mmHg (35.0-45.0); PO2 FiO2 Ratio Arterial Blood 0.73 %; Site Drawn LEFT RADIAL; Total Hemoglobin 14.1 g/dL (12.0-18.0); pH ABG 7.496 (7.350-7.450)
[2021-10-03 10:53] LABS: Device BIPAP; Expiratory Pressure 10 cmH2O; Inspiratory Pressure 16 cmH2O
[2021-10-03 11:31] LABS: Procalcitonin 0.3 ng/mL
[2021-10-03 11:34] LABS: CRP 6.8 mg/dL (<1.0); Magnesium 2.8 mg/dL (1.6-2.3)
[2021-10-03 11:36] LABS: Lactate Dehydrogenase 2056 U/L (313-618)
[2021-10-03] MEDS: FAT EMULSIONS IV 20% 250 ML 20.83 ML IVPB (11:37)
[2021-10-03] MEDS: AMINO ACIDS 5%/D15W/E-LYTES/CA 2,000 ML with MULTIVITAMINS-12 INJ VIAL 1 2.5 ML, MULTIV... 40 ML IV CONT (11:37)
[2021-10-03 11:38] LABS: Transferrin 136 mg/dL (206-381)
[2021-10-03 11:54] LABS: Troponin I 0.099 ng/mL (0.000-0.034)
[2021-10-03 12:42] LABS: Glucose Point of Care 157 mg/dl (65-105)
[2021-10-03 17:17] LABS: Glucose Point of Care 233 mg/dl (65-105)
[2021-10-03] MEDS: INSULIN ASPART (*BKC) 100 UNITS/ML 8 UNITS SUB-Q (17:38)
[2021-10-03] MEDS: INSULIN ASPART (*BKC) 100 UNITS/ML SUB-Q (17:38)
[2021-10-03] MEDS: CENTRAL LINE FLUSH 10 ML IV PUSH ×2 (17:39→22:55)
[2021-10-03 19:08] LABS: Troponin I 0.124 ng/mL (0.000-0.034)
[2021-10-03 19:46] LABS: Glucose Point of Care 231 mg/dl (65-105)
[2021-10-03] MEDS: MELATONIN 3 MG TABLET PO (22:52)
[2021-10-03] MEDS: INSULIN GLARGINE (*BKC) 100 UNITS/ML 40 UNITS SUB-Q (22:54)
[2021-10-04] VITALS: PULSE 93; O2SAT 96
[2021-10-04] MEDS: ONDANSETRON INJ 4 MG/2 ML VIAL IV PUSH (01:31)
[2021-10-04 01:45] LABS: Glucose Point of Care 244 mg/dl (65-105)
--- NOTE | 2021-10-04 01:59 | PC.NURSE ---
Addendum entered by Machelle Ortiz RN 10/04/21 02:27: Patient will now be comfort care as per patient and family request. Original Note: At 0140, went to check on patient and found that he had a small amount of emesis on his gown and Bipap mask. After taking off the mask, patient had further emesis, brown liquid. I called RT and Robyn Clark, charge entry clerk. Placed patient on Airvo 60L with 95% and a 100% non rebreather. Zofran 4mg IV given for nausea. Dr. Price notified by Robyn ANTUNEZ. Patient is arousable and does not want to be intubated and placed on a ventilator. He is currently DNR status. Robyn ANTUNEZ notified Mrs. Allred and informed her of the events. She will come to the hospital. Fingerstick done and is 244. Patient will now be comfort care as per family request.
[2021-10-04 02:00] VITALS: PULSE 86; O2SAT 79
--- NOTE | 2021-10-04 02:35 | PCRCNOTE ---
0200 MDI not given due to pt declining and in room with pt.
[2021-10-04] MEDS: HYDROmorphone HCL INJ (*CRX) 1 MG/ML SYR IV PUSH (02:53)
[2021-10-04] MEDS: LORazepam INJ (*CRX) 2 MG/ML VIAL 1 MG IV PUSH (02:53)
--- NOTE | 2021-10-04 03:19 | PC.NURSE ---
Patient's and brother in law arrived at 0215. Assisted them with gown, gloves, and N95 masks.
--- NOTE | 2021-10-04 03:21 | PC.NURSE ---
Dilaudid 1mg IVP and Ativan 1mg IVP given at 0253 for comfort measures. Family remains at bedside.
--- NOTE | 2021-10-04 04:22 | PC.NURSE ---
Patient asystole on the monitor. Robyn Clark RN and I assessed the patient, no heart tones, no respirations, no breath sounds bilaterally, pupils fixed without corneal reflex. Patient pronounced at 0354. and brother in law at bedside.
--- NOTE | 2021-10-04 04:26 | PC.NURSE ---
[facility] notified of patient . Tico answered phone and states they will be here this morning sometime to pick up worker body. Tico made aware that patient was covid positive.
--- NOTE | 2021-10-08 06:53 | P.DN_ITS ---
Discharge Summary Date and Time Date of : 10/04/21 Time of : 03:54 Provider Pronounced By: Robyn Clark RN and Machelle Ortiz RN Probable Cause of Probable Cause of : Acute Respiratory Failure from COVID Pneumonia Summary Hospital Course: Patient prsented with symptoms of cough, nausea, vomiting and shortness of breath which began on 09/19/21. He presented to the emergency room on 09/23 and was found to be COVID positive. He was placed in COVID19 isolation precautions, cardiac monitoring, and continuous pulse ox. He was unvaccinated. Chest x-ray on admission showed diffuse lung disease. CT of the chest 09/26/2021 shows diffuse lung disease bilaterally consistent with COVID p neumonia. He was started on supplemental oxygen but progressed rapidly to BiPAP treatment. He was treated with remdesivir and dexamethasone. Baricitinib was stopped because of his renal disease. Pulmonary was consulted. He did develop new onset AFib that was rate controlled. We added Eliquis. Eve has CKD and did develop FERMIN as well. His condition worsened to the point of becoming BiPAP dependent. CXR appeared worse. [place] most likely that this is progression of COVID. Discussed with sugar boiler. Patient did not want to be intubated. Patient's condition deteriorated overnight and his was called. She came to the hospital and decided to keep the patient comfortable. He was provided comfort medicines and he passed in the district service manager hours of 10/04/21. Additional Data Confirmation of as documented by pronouncing clinician: Pupillary Reflex, Palpable Pulses, Response to Stimuli, Heart Tones and Breath Sounds Name of Provider Notified: Dr Price Time Provider Notified: 04:22 Provider Requests Autopsy: No Family Requests Autopsy: No Organizational Development Consultant Notified: Yes Date [facility] Notified of : 10/04/21 Time [facility] Notified of : 04:13
== END 2021-10-04 03:54 | disposition expired | DRG 177 ==
LOC: ANHED 09:18 → ANH3MEDSUR 09:56 → ANHIMU 09-26 05:06
PROVIDERS: Internal Medicine; Internal Medicine Pulmonary Disease; Nurse Practitioner Family; Admitting Provider Internal Medicine; Emergency Provider Emergency Medicine; PCP Internal Medicine; Visit Provider Internal Medicine
DX: U07.1 COVID-19 (principal); J12.82 Pneumonia due to coronavirus disease 2019; J96.01 Acute respiratory failure with hypoxia; J15.9 Unspecified bacterial pneumonia; I50.32 Chronic diastolic (congestive) heart failure; I13.0 Hypertensive heart and chronic kidney disease with heart failure and stage 1 through stage 4 chronic kidney disease, or unspecified chronic kidney disease; J44.0 Chronic obstructive pulmonary disease with (acute) lower respiratory infection; E87.1 Hypo-osmolality and hyponatremia; N17.9 Acute kidney failure, unspecified; I47.2 Ventricular tachycardia; E11.22 Type 2 diabetes mellitus with diabetic chronic kidney disease; N18.30 Chronic kidney disease, stage 3 unspecified; G47.33 Obstructive sleep apnea (adult) (pediatric); I27.20 Pulmonary hypertension, unspecified; M06.9 Rheumatoid arthritis, unspecified; M32.9 Systemic lupus erythematosus, unspecified; E03.9 Hypothyroidism, unspecified; E78.2 Mixed hyperlipidemia; I48.91 Unspecified atrial fibrillation; M15.9 Polyosteoarthritis, unspecified; Z96.651 Presence of right artificial knee joint; E66.9 Obesity, unspecified; Z68.31 Body mass index [BMI] 31.0-31.9, adult; Z79.82 Long term (current) use of aspirin; I25.2 Old myocardial infarction; Z86.73 Personal history of transient ischemic attack (TIA), and cerebral infarction without residual deficits; Z90.49 Acquired absence of other specified parts of digestive tract; Z98.42 Cataract extraction status, left eye; Z98.41 Cataract extraction status, right eye
CPT/HCPCS: 36415; 36569; 36600; 71045; 71250; 80048; 80053; 82375; 82550; 82565; 82805; 82948; 83036; 83050; 83615; 83735; 83880; 84100; 84145; 84450; 84460; 84466; 84484; 85025; 85380; 85610; 85730; 86140; 87040; 87502; 93005; 93306; 94002; 94003; 94640; 99285; A9270; C1751; C9803; J0692; J1170; J1650; J1815; J1940; J2060; J2270; J2405; J3370; J8540; U0003; U0005